=== PATIENT | male | born 1965 | race African-American/Black ===

== ENCOUNTER 2017-07-22 00:26 | Inpatient (IN) | payer MEDICAID ==
[2017-07-22] VITALS (46 sets, daily range): BP systolic 109–229; BP diastolic 69–157
[~2017-07-22] VITALS: Ht 177.8 cm; Wt 77.1 kg
[~2017-07-22 00:26] MED LIST: hctz; metformin
[2017-07-22] MEDS ORDERED: Labetalol 5mg/ml 20ml vial IV ONE (01:00)
[2017-07-22] MEDS ORDERED: LORazepam Inj 2mg/ml 1ml IV ONE (01:15)
[2017-07-22 01:23] LABS: ANION GAP 13 mmol/L (5-15); BLOOD UREA NITROGEN 8 mg/dL (7-18); CALCIUM 8.1 MG/DL (8.5-10.1); CARBON DIOXIDE 24 MMOL/L (21-32); CHLORIDE 98 MMOL/L (98-107); CREATININE 1.9 MG/DL (0.55-1.30); POTASSIUM 3.2 MMOL/L (3.5-5.1); SODIUM 135 MMOL/L (136-145)
[2017-07-22 01:38] LABS: ALANINE AMINOTRANSFERASE 66 U/L (12-78); ALBUMIN/GLOBULIN RATIO 0.6 (1.0-2.7); ALKALINE PHOSPHATASE 90 U/L (46-116); ASPARTATE AMINO TRANSFERASE 67 U/L (15-37); BILIRUBIN,TOTAL 0.7 MG/DL (0.2-1.0); CKMB 3.2 NG/ML (0.0-3.6); CREATINE KINASE 368 U/L (26-308)
--- NOTE | 2017-07-22 02:11 | Diagnostic Imaging Report ---
EXAM: CT Head Without Intravenous Contrast CLINICAL HISTORY: AMS TECHNIQUE: Axial computed tomography images of the head/brain without intravenous contrast. CTDI is 51 mGy and DLP is 258 mGy-cm. One or more of the following dose reduction techniques were used: automated exposure control, adjustment of the mA and/or kV according to patient size, use of iterative reconstruction technique. COMPARISON: No relevant prior studies available. FINDINGS: Brain: Chronic right MCA territorial infarctions. Ventricles: No acute or suspicious findings. No ventriculomegaly. Bones/joints: No acute or suspicious findings. No acute fracture. Soft tissues: No acute or suspicious findings. Sinuses: Unremarkable as visualized. No acute sinusitis. Mastoid air cells: Unremarkable as visualized. No mastoid effusion. IMPRESSION: No acute findings.
--- NOTE | 2017-07-22 02:12 | Diagnostic Imaging Report ---
EXAM: XR Chest, 1 View CLINICAL HISTORY: CP TECHNIQUE: Frontal view of the chest. COMPARISON: No relevant prior studies available. FINDINGS: Lungs: No acute or suspicious findings. No consolidation. Pleural space: No acute or suspicious findings. No pneumothorax. Heart: No acute or suspicious findings. Mild cardiomegaly. Mediastinum: No acute or suspicious findings. Bones/joints: No acute or suspicious findings. IMPRESSION: No acute process
[2017-07-22 02:14] LABS: HEMOGLOBIN 16.5 G/DL (14.2-18.0); MEAN CORPUSCULAR VOLUME 87 FL (80-99); RED BLOOD COUNT 5.49 M/UL (4.70-6.10); WHITE BLOOD COUNT 9.1 K/UL (4.8-10.8)
[2017-07-22 02:19] LABS: PLATELET COUNT 20 K/UL (150-450)
[2017-07-22] MEDS ORDERED: levETIRAcetam 500mg/NS100ml 100 ML IVPB ONE (02:30)
[2017-07-22] MEDS ORDERED: Nitroglycerin 2% oint pkt TOPIC ONE (02:30)
[2017-07-22] MEDS ORDERED: niCARdipine HCl 200 ML IV ONE (03:30)
--- NOTE | 2017-07-22 05:53 | Emergency Room Report ---
History of Present Illness General Chief Complaint: Hypertension Source: Patient, EMS Present Illness HPI Patient present with complaints of high blood pressure He reports that when he has high blood pressure he knows Because he feels lightheaded Patient upon arrival has some abnormal behavior sluggish speech Patient also while being transferred to the [facility] had an episode of shaking and tremors However was maintaining eye contact There is no other family member to provide further history Patient reports history of high blood pressure And reports being on amlodipine And hydrochlorothiazide However difficult to obtain full history otherwise Cannot provide history of chest pain Patient has been noncompliant with medications for the past 7 days History of present illness however does stay Limited as the patient himself has difficulty providing full history and there is no other contacted this time Allergies: Coded Allergies: LITHIUM (Verified Allergy, Unknown, 07/23/13) Patient History Limited by: medical condition Past Medical History: see triage record Pertinent Family History: none Reviewed Nursing Documentation: PMH: Agreed; PSxH: Agreed Nursing Documentation-PMH Hx Cardiac Problems: Yes Hx Hypertension: Yes Hx Diabetes: Yes Hx Cancer: No Hx Gastrointestinal Problems: No Hx Neurological Problems: No Review of Systems All Other Systems: limited - Other than the ones mentioned in the history of present illness all others are reviewed however they do stay limited due to the patient's mental status Physical Exam Vital Signs Date Time Temp Pulse Resp B/P (MAP) Pulse Ox O2 Delivery O2 Flow Rate FiO2 07/22/17 00:33 98.6 140 18 252/102 98 Room Air 98.6 07/22/17 01:11 98 07/22/17 02:30 3.0 Sp02 EP Interpretation: reviewed, normal General Appearance: mild distress Head: normocephalic, atraumatic Eyes: bilateral eye PERRL, bilateral eye EOMI ENT: normal pharynx Neck: full range of motion, supple Respiratory: lungs clear, normal breath sounds Cardiovascular #1: no gallop, no JVD, tachycardia Gastrointestinal: non tender, soft Musculoskeletal: other - Patient is able to move all extremities however intermittently, has shaking episodes and tremors, at times appears somewhat confused and then becomes more coherent Neurologic: responsive - Patient presented awake, he had difficulty providing full history appeared confused, had episode of some tremulousness, however maintaining appropriate eye contact and appeared awake Skin: normal color, no rash Lymphatic: no adenopathy Procedures Critical Care Time Critical Care Time 70 minutes for multiple re-evaluations continued care in the emergency room hypotensive findings concerning for end organ injury and possible intracranial hemorrhage Medical Decision Making Diagnostic Impression: Primary Impression: Hypertensive urgency, malignant Additional Impression: CHF (congestive heart failure) ER Course Patient presents and extremity concerning fashion Patient has abnormal findings at times appears tremulous questionable seizure activity Patient's ABG shows retaining of CO2 with a low pH Also concerns of CHF Placed on BiPAP Patient has repeat ABG also done At this time continues on antihypertensive drip CT shows previous right-sided large CVA And at this time admitted for further inpatient care Labs Test 07/22/17 00:58 07/22/17 01:53 07/22/17 02:20 07/22/17 02:42 Prothrombin Time 10.9 SEC (9.30-11.50) Prothromb Time International Ratio 1.0 (0.9-1.1) Activated Partial Thromboplast Time 28 SEC (23-33) Sodium Level 135 MMOL/L (136-145) Potassium Level 3.2 MMOL/L (3.5-5.1) Chloride Level 98 MMOL/L (98-107) Carbon Dioxide Level 24 MMOL/L (21-32) Anion Gap 13 mmol/L (5-15) Blood Urea Nitrogen 8 mg/dL (7-18) Creatinine 1.9 MG/DL (0.55-1.30) Estimat Glomerular Filtration Rate 45.6 mL/min (>60) Glucose Level 377 MG/DL (74-106) Calcium Level 8.1 MG/DL (8.5-10.1) Total Bilirubin 0.7 MG/DL (0.2-1.0) Aspartate Amino Transf (AST/SGOT) 67 U/L (15-37) Alanine Aminotransferase (ALT/SGPT) 66 U/L (12-78) Alkaline Phosphatase 90 U/L (46-116) Total Creatine Kinase 368 U/L (26-308) Creatine Kinase MB 3.2 NG/ML (0.0-3.6) Creatine Kinase MB Relative Index 0.8 Troponin I 0.047 ng/mL (0.000-0.056) Pro-B-Type Natriuretic Peptide 6126 pg/mL (0-125) Total Protein 8.3 G/DL (6.4-8.2) Albumin 3.0 G/DL (3.4-5.0) Globulin 5.3 g/dL Albumin/Globulin Ratio 0.6 (1.0-2.7) Urine Opiates Screen Negative (NEGATIVE) Urine Barbiturates Screen Negative (NEGATIVE) Phencyclidine (PCP) Screen Negative (NEGATIVE) Urine Amphetamines Screen Negative (NEGATIVE) Urine Benzodiazepines Screen Negative (NEGATIVE) Urine Cocaine Screen Negative (NEGATIVE) Urine Marijuana (THC) Screen Negative (NEGATIVE) White Blood Count 9.1 K/UL (4.8-10.8) Red Blood Count 5.49 M/UL (4.70-6.10) Hemoglobin 16.5 G/DL (14.2-18.0) Hematocrit 48.0 % (42.0-52.0) Mean Corpuscular Volume 87 FL (80-99) Mean Corpuscular Hemoglobin 30.0 PG (27.0-31.0) Mean Corpuscular Hemoglobin Concent 34.3 G/DL (32.0-36.0) Red Cell Distribution Width 12.0 % (11.6-14.8) Platelet Count 20 K/UL (150-450) Mean Platelet Volume 12.4 FL (6.5-10.1) Neutrophils (%) (Auto) % (45.0-75.0) Lymphocytes (%) (Auto) % (20.0-45.0) Monocytes (%) (Auto) % (1.0-10.0) Eosinophils (%) (Auto) % (0.0-3.0) Basophils (%) (Auto) % (0.0-2.0) Differential Total Cells Counted 100 Neutrophils % (Manual) 92 % (45-75) Lymphocytes % (Manual) 4 % (20-45) Monocytes % (Manual) 2 % (1-10) Eosinophils % (Manual) 0 % (0-3) Basophils % (Manual) 2 % (0-2) Band Neutrophils 0 % (0-8) Platelet Estimate Adequate Platelet Morphology Normal Clumped Platelets 1+ HIV (1&2) Antibody Rapid Negative (NEGATIVE) Arterial Blood pH 7.290 (7.350-7.450) Arterial Blood Partial Pressure CO2 52.8 mmHg (35.0-45.0) Arterial Blood Partial Pressure O2 76.5 mmHg (75.0-100.0) Arterial Blood HCO3 25.2 mmol/L (22.0-26.0) Arterial Blood Oxygen Saturation 93.1 % (92.0-98.0) Arterial Blood Base Excess -2.1 Brandyn Test Positive Lactic Acid Level 3.00 mmol/L (0.4-2.0) Test 07/22/17 04:51 Arterial Blood pH 7.420 (7.350-7.450) Arterial Blood Partial Pressure CO2 40.4 mmHg (35.0-45.0) Arterial Blood Partial Pressure O2 119.2 mmHg (75.0-100.0) Arterial Blood HCO3 25.6 mmol/L (22.0-26.0) Arterial Blood Oxygen Saturation 98.2 % (92.0-98.0) Arterial Blood Base Excess 1.1 Brandyn Test Positive EKG Diagnostic Results Rate: tachycardiac Rhythm: other - Nonspecific ST/T-wave changes ST Segments: other Rhythm Strip Diag. Results EP Interpretation: yes Rate: 110 Rhythm: no PVC's, no ectopy, other - Sinus tach Chest X-Ray Diagnostic Results Chest X-Ray Diagnostic Results : Chest X-Ray Ordered: Yes Indication: Chest Pain EP Interpretation: Yes Interpretation: no consolidation, no effusion, no pneumothorax, other - Cardiomegaly Impression: No acute disease CT/MRI/US Diagnostic Results CT/MRI/US Diagnostic Results : Impression CT headFINDINGS: Brain:Chronic right MCAterritorial infarctions. Ventricles:No acute or suspicious findings. No ventriculomegaly. Bones/joints:No acute or suspicious findings. No acute fracture. Soft tissues:No acute or suspicious findings. Sinuses:Unremarkable as visualized. No acute sinusitis. Mastoid air cells:Unremarkable as visualized. No mastoid effusion. Last Vital Signs Date Time Temp Pulse Resp B/P (MAP) Pulse Ox O2 Delivery O2 Flow Rate FiO2 07/22/17 05:25 103 19 156/100 100 Bi-pap 07/22/17 05:18 30 07/22/17 02:30 3.0 07/22/17 02:00 98.6 98.6 Status: improved Disposition: ADMITTED INPATIENT Condition: Critical Referrals: [facility]OUNT[facility],REFERRING (PCP) Melida Rodríguez DO Jul 22, 2017 05:53
[2017-07-22] MEDS ORDERED: Enoxaparin 40mg Inj SUBQ SCH (09:00)
--- NOTE | 2017-07-22 09:30 | Critical Care Progress Note ---
Assessment/Plan Assessment/Plan Hypertensive urgency, malignant CHF (congestive heart failure) Hypercapnia Acute respiratory failure right-sided large CVA Renal failure protein calorie malnutrition PLAN BIPAP as needed ABG follow up antihypertensives monitor for aspiration Critical Care - Subjective Interval Events: asked to assist with ICU/pulm care on BIPAP ROS Limited/Unobtainable: Yes Condition: critical EKG Rhythm: Sinus Tachycardia I&O: Intake and Output 07/21/17 07/22/17 19:00 07:00 Intake Total 0.3 ml Balance 0.3 ml Intake IV Total 0.3 ml # Voids 1 Critical Care - Objective Last 24 Hour Vital Signs Date Time Temp Pulse Resp B/P (MAP) Pulse Ox O2 Delivery O2 Flow Rate FiO2 07/22/17 08:30 117 19 150/99 100 Bi-pap 30 07/22/17 08:00 117 19 150/99 100 Bi-pap 30 07/22/17 07:52 30 07/22/17 07:51 Bi-pap 30 07/22/17 07:29 112 25 100 Facial 30 07/22/17 06:45 114 21 152/98 100 Bi-pap 07/22/17 06:30 117 21 162/103 100 Bi-pap 07/22/17 06:15 107 19 185/128 100 07/22/17 05:50 107 15 146/96 100 Bi-pap 3.0 30 07/22/17 05:25 103 19 156/100 100 Bi-pap 07/22/17 05:18 100 23 100 Facial 30 07/22/17 05:00 98 18 172/122 100 Bi-pap 07/22/17 05:00 98 18 172/122 100 Bi-pap 07/22/17 04:45 97 18 169/120 100 Bi-pap 07/22/17 04:26 100 25 157/108 100 Bi-pap 07/22/17 04:08 186/128 07/22/17 03:03 103 23 100 Facial 35 07/22/17 03:00 110 22 198/137 100 Bi-pap 07/22/17 02:59 100 23 Bi-pap 35 07/22/17 02:57 216/157 07/22/17 02:30 106 23 216/157 100 Nasal Cannula 3.0 07/22/17 02:00 98.6 107 22 209/140 99 Room Air 98 98.6 07/22/17 01:11 98.6 125 24 229/144 98 Room Air 98.6 07/22/17 01:11 125 24 Room Air 98 07/22/17 01:07 125 229/144 07/22/17 00:33 98.6 140 18 252/102 98 Room Air 98.6 Labs: Laboratory Tests Test 07/22/17 00:58 07/22/17 01:53 07/22/17 02:20 07/22/17 02:42 Prothrombin Time 10.9 SEC (9.30-11.50) Prothromb Time International Ratio 1.0 (0.9-1.1) Activated Partial Thromboplast Time 28 SEC (23-33) Sodium Level 135 MMOL/L (136-145) L Potassium Level 3.2 MMOL/L (3.5-5.1) L Chloride Level 98 MMOL/L (98-107) Carbon Dioxide Level 24 MMOL/L (21-32) Anion Gap 13 mmol/L (5-15) Blood Urea Nitrogen 8 mg/dL (7-18) Creatinine 1.9 MG/DL (0.55-1.30) H Estimat Glomerular Filtration Rate 45.6 mL/min (>60) Glucose Level 377 MG/DL (74-106) H Calcium Level 8.1 MG/DL (8.5-10.1) L Total Bilirubin 0.7 MG/DL (0.2-1.0) Aspartate Amino Transf (AST/SGOT) 67 U/L (15-37) H Alanine Aminotransferase (ALT/SGPT) 66 U/L (12-78) Alkaline Phosphatase 90 U/L (46-116) Total Creatine Kinase 368 U/L (26-308) H Creatine Kinase MB 3.2 NG/ML (0.0-3.6) Creatine Kinase MB Relative Index 0.8 Troponin I 0.047 ng/mL (0.000-0.056) Pro-B-Type Natriuretic Peptide 6126 pg/mL (0-125) H Total Protein 8.3 G/DL (6.4-8.2) H Albumin 3.0 G/DL (3.4-5.0) L Globulin 5.3 g/dL Albumin/Globulin Ratio 0.6 (1.0-2.7) L Urine Opiates Screen Negative (NEGATIVE) Urine Barbiturates Screen Negative (NEGATIVE) Phencyclidine (PCP) Screen Negative (NEGATIVE) Urine Amphetamines Screen Negative (NEGATIVE) Urine Benzodiazepines Screen Negative (NEGATIVE) Urine Cocaine Screen Negative (NEGATIVE) Urine Marijuana (THC) Screen Negative (NEGATIVE) White Blood Count 9.1 K/UL (4.8-10.8) Red Blood Count 5.49 M/UL (4.70-6.10) Hemoglobin 16.5 G/DL (14.2-18.0) Hematocrit 48.0 % (42.0-52.0) Mean Corpuscular Volume 87 FL (80-99) Mean Corpuscular Hemoglobin 30.0 PG (27.0-31.0) Mean Corpuscular Hemoglobin Concent 34.3 G/DL (32.0-36.0) Red Cell Distribution Width 12.0 % (11.6-14.8) Platelet Count 20 K/UL (150-450) L Mean Platelet Volume 12.4 FL (6.5-10.1) H Neutrophils (%) (Auto) % (45.0-75.0) Lymphocytes (%) (Auto) % (20.0-45.0) Monocytes (%) (Auto) % (1.0-10.0) Eosinophils (%) (Auto) % (0.0-3.0) Basophils (%) (Auto) % (0.0-2.0) Differential Total Cells Counted 100 Neutrophils % (Manual) 92 % (45-75) H Lymphocytes % (Manual) 4 % (20-45) L Monocytes % (Manual) 2 % (1-10) Eosinophils % (Manual) 0 % (0-3) Basophils % (Manual) 2 % (0-2) Band Neutrophils 0 % (0-8) Platelet Estimate Adequate Platelet Morphology Normal Clumped Platelets 1+ HIV (1&2) Antibody Rapid Negative (NEGATIVE) Arterial Blood pH 7.290 (7.350-7.450) Arterial Blood Partial Pressure CO2 52.8 mmHg (35.0-45.0) H Arterial Blood Partial Pressure O2 76.5 mmHg (75.0-100.0) Arterial Blood HCO3 25.2 mmol/L (22.0-26.0) Arterial Blood Oxygen Saturation 93.1 % (92.0-98.0) Arterial Blood Base Excess -2.1 Brandyn Test Positive Lactic Acid Level 3.00 mmol/L (0.4-2.0) H Test 07/22/17 04:51 07/22/17 06:25 07/22/17 09:00 Arterial Blood pH 7.420 (7.350-7.450) Arterial Blood Partial Pressure CO2 40.4 mmHg (35.0-45.0) Arterial Blood Partial Pressure O2 119.2 mmHg (75.0-100.0) H Arterial Blood HCO3 25.6 mmol/L (22.0-26.0) Arterial Blood Oxygen Saturation 98.2 % (92.0-98.0) H Arterial Blood Base Excess 1.1 Brandyn Test Positive Lactic Acid Level 1.50 mmol/L (0.66-2.22) White Blood Count Pending Red Blood Count Pending Hemoglobin Pending Hematocrit Pending Mean Corpuscular Volume Pending Mean Corpuscular Hemoglobin Pending Mean Corpuscular Hemoglobin Concent Pending Red Cell Distribution Width Pending Platelet Count Pending Mean Platelet Volume Pending Neutrophils (%) (Auto) Pending Lymphocytes (%) (Auto) Pending Monocytes (%) (Auto) Pending Eosinophils (%) (Auto) Pending Basophils (%) (Auto) Pending Lactate Dehydrogenase Pending Troponin I Pending Objective: WDWN reduced LOC reduced breath sounds bilaterally with some rhonchi S1S2RR tachy without MRG NABS nontender no HSM no CC edema Accucheck: 308 Abdoulaye Tijerina MD Jul 22, 2017 09:30
[2017-07-22] MEDS: Docusate 100mg cap ORAL SCH ×2 (10:06→21:21)
[2017-07-22] MEDS: niCARdipine HCl 200 ML IV SCH ×2 (10:07→14:40)
--- NOTE | 2017-07-22 10:15 | History and Physical Report ---
DATE OF ADMISSION: 07/22/2017 REASON FOR ADMISSION: 1. Hypertensive urgency. 2. Shortness of breath. HISTORY OF PRESENT ILLNESS: The patient is a 52-year-old gentleman who presented to the emergency room for further evaluation and care of slight feeling lightheaded and blood pressure extremely elevated systolic in the 240s. The patient was feeling ill with some slightly shaking tremors. ER physician said CT of the head was negative. The patient was being admitted to the ICU for hypertensive urgency. At home, the patient had noted he was taking amlodipine and hydrochlorothiazide for blood pressure. His creatinine is 1.9. Denies any current chest pain. He did receive Lasix in the emergency room to assist with his breathing and placed on noninvasive positive pressure ventilation. ALLERGIES: [place]. PAST MEDICAL HISTORY: 1. Hypertension. 2. Diabetes mellitus. FAMILY HISTORY: Positive for hypertension and diabetes. PAST SURGICAL HISTORY: Noncontributory. REVIEW OF SYSTEMS: Cannot obtain as the patient is resting comfortably. LABORATORY DATA: Laboratories dated 07/22/2017, sodium 135, potassium 3.2, creatinine 1.9, bicarb 24, lactic acid 1.5, calcium 8.1. AST and ALT 67 and 66 respectively. CPK at 368. BNP of 6126. Albumin 3.0. White cell count 9.1, hemoglobin 16.5, and platelet count of 20. PHYSICAL EXAMINATION: VITAL SIGNS: Blood pressure 185/128, pulse 107, respiratory rate 19, 100% oxygen saturation on BiPAP. GENERAL: The patient somnolent, but arousable, in no acute distress. HEENT: Extraocular muscles intact. NECK: No lymphadenopathy noted. CARDIOVASCULAR: S1 and S2. No rubs or gallops. PULMONARY: Mild upper airway rhonchi with basilar rales. ABDOMEN: Nondistended and nontender. EXTREMITIES: No edema. ASSESSMENT AND PLAN: 1. Hypertensive urgency. At this time, patient will be placed on a Cardene drip to reduce overall systolic blood pressure approximately 25% over the next 24 hours. We will maintain systolic blood pressure in a Cardene drip within systolic range of 160 to 170. 2. Thrombocytopenia. Platelet count of 20. We will recheck platelet count and consult Hematology/Oncology. At this time, no signs of TTP. We will check a LDH level. 3. Diabetes mellitus. For the time being, the patient will be placed on insulin sliding scale and Accu-Cheks. 4. Deep venous thrombosis prophylaxis with Lovenox 40 milligrams subcutaneous. 5. Acute kidney injury. Creatinine 1.9, secondary to hypertensive urgency, at this time conservative management. Renal ultrasound to rule out possibility of any obstruction. Avoid any nephrotoxins. 6. Pulmonary edema, shortness of breath secondary to hypertensive urgency. The patient is on BiPAP. We will consult Dr. Tijerina, Pulmonary Care for further evaluation and management. Lyndon Shaw MD DR: RUSSELL JOB#: [id number] CC:
[2017-07-22] MEDS: NovoLOG Insulin Flexpen SUBQ SCH ×3 (11:57→21:22)
[2017-07-22] MEDS ORDERED: METFORMIN HCL500 M4 ORAL (12:30)
[2017-07-22 12:32] LABS: HEMATOCRIT 50.4 % (42.0-52.0); HEMOGLOBIN 16.7 G/DL (14.2-18.0); MEAN CORPUSCULAR VOLUME 87 FL (80-99); RED BLOOD COUNT 5.76 M/UL (4.70-6.10)
[2017-07-22 12:34] LABS: PLATELET COUNT 9 K/UL (150-450)
--- NOTE | 2017-07-22 14:05 | Cardiac Electrophysiology PN ---
Subjective Subjective [id number] Objective Last 24 Hour Vital Signs Date Time Temp Pulse Resp B/P (MAP) Pulse Ox O2 Delivery O2 Flow Rate FiO2 07/22/17 13:30 116 16 141/88 97 Nasal Cannula 2.0 07/22/17 13:00 110 22 147/82 97 Nasal Cannula 2.0 07/22/17 12:30 116 19 151/102 99 Nasal Cannula 2.0 07/22/17 12:00 97.8 115 24 165/101 98 Nasal Cannula 2.0 97.8 07/22/17 12:00 115 07/22/17 12:00 120 07/22/17 11:30 119 23 169/91 99 Nasal Cannula 2.0 07/22/17 11:00 122 23 173/107 100 Nasal Cannula 2.0 07/22/17 10:30 115 22 178/113 100 Nasal Cannula 2.0 07/22/17 10:15 110 23 166/103 100 Nasal Cannula 2.0 07/22/17 10:07 178/106 07/22/17 10:00 113 22 178/106 100 Nasal Cannula 2.0 07/22/17 09:45 118 22 170/104 98 Nasal Cannula 2.0 07/22/17 09:30 112 21 170/104 99 Nasal Cannula 2.0 07/22/17 09:15 123 20 168/105 100 Nasal Cannula 2.0 07/22/17 09:00 114 19 155/100 100 Nasal Cannula 2.0 07/22/17 08:45 98.4 117 20 150/101 100 Nasal Cannula 2.0 98.4 07/22/17 08:30 117 19 150/99 100 Bi-pap 30 07/22/17 08:00 117 19 150/99 100 Bi-pap 30 07/22/17 07:52 30 07/22/17 07:51 Bi-pap 30 07/22/17 07:29 112 25 100 Facial 30 07/22/17 06:45 114 21 152/98 100 Bi-pap 07/22/17 06:30 117 21 162/103 100 Bi-pap 07/22/17 06:15 107 19 185/128 100 07/22/17 05:50 107 15 146/96 100 Bi-pap 3.0 30 07/22/17 05:25 103 19 156/100 100 Bi-pap 07/22/17 05:18 100 23 100 Facial 30 07/22/17 05:00 98 18 172/122 100 Bi-pap 07/22/17 05:00 98 18 172/122 100 Bi-pap 07/22/17 04:45 97 18 169/120 100 Bi-pap 07/22/17 04:26 100 25 157/108 100 Bi-pap 07/22/17 04:08 186/128 07/22/17 03:03 103 23 100 Facial 35 07/22/17 03:00 110 22 198/137 100 Bi-pap 07/22/17 02:59 100 23 Bi-pap 35 07/22/17 02:57 216/157 07/22/17 02:30 106 23 216/157 100 Nasal Cannula 3.0 07/22/17 02:00 98.6 107 22 209/140 99 Room Air 98 98.6 07/22/17 01:11 98.6 125 24 229/144 98 Room Air 98.6 07/22/17 01:11 125 24 Room Air 98 07/22/17 01:07 125 229/144 07/22/17 00:33 98.6 140 18 252/102 98 Room Air 98.6 Intake and Output 07/21/17 07/22/17 19:00 07:00 Intake Total 0.3 ml Balance 0.3 ml Intake IV Total 0.3 ml # Voids 1 Laboratory Tests Test 07/22/17 00:58 07/22/17 01:53 07/22/17 02:20 07/22/17 02:42 Prothrombin Time 10.9 SEC (9.30-11.50) Prothromb Time International Ratio 1.0 (0.9-1.1) Activated Partial Thromboplast Time 28 SEC (23-33) Sodium Level 135 MMOL/L (136-145) L Potassium Level 3.2 MMOL/L (3.5-5.1) L Chloride Level 98 MMOL/L (98-107) Carbon Dioxide Level 24 MMOL/L (21-32) Anion Gap 13 mmol/L (5-15) Blood Urea Nitrogen 8 mg/dL (7-18) Creatinine 1.9 MG/DL (0.55-1.30) H Estimat Glomerular Filtration Rate 45.6 mL/min (>60) Glucose Level 377 MG/DL (74-106) H Calcium Level 8.1 MG/DL (8.5-10.1) L Total Bilirubin 0.7 MG/DL (0.2-1.0) Aspartate Amino Transf (AST/SGOT) 67 U/L (15-37) H Alanine Aminotransferase (ALT/SGPT) 66 U/L (12-78) Alkaline Phosphatase 90 U/L (46-116) Total Creatine Kinase 368 U/L (26-308) H Creatine Kinase MB 3.2 NG/ML (0.0-3.6) Creatine Kinase MB Relative Index 0.8 Troponin I 0.047 ng/mL (0.000-0.056) Pro-B-Type Natriuretic Peptide 6126 pg/mL (0-125) H Total Protein 8.3 G/DL (6.4-8.2) H Albumin 3.0 G/DL (3.4-5.0) L Globulin 5.3 g/dL Albumin/Globulin Ratio 0.6 (1.0-2.7) L Urine Opiates Screen Negative (NEGATIVE) Urine Barbiturates Screen Negative (NEGATIVE) Phencyclidine (PCP) Screen Negative (NEGATIVE) Urine Amphetamines Screen Negative (NEGATIVE) Urine Benzodiazepines Screen Negative (NEGATIVE) Urine Cocaine Screen Negative (NEGATIVE) Urine Marijuana (THC) Screen Negative (NEGATIVE) White Blood Count 9.1 K/UL (4.8-10.8) Red Blood Count 5.49 M/UL (4.70-6.10) Hemoglobin 16.5 G/DL (14.2-18.0) Hematocrit 48.0 % (42.0-52.0) Mean Corpuscular Volume 87 FL (80-99) Mean Corpuscular Hemoglobin 30.0 PG (27.0-31.0) Mean Corpuscular Hemoglobin Concent 34.3 G/DL (32.0-36.0) Red Cell Distribution Width 12.0 % (11.6-14.8) Platelet Count 20 K/UL (150-450) L Mean Platelet Volume 12.4 FL (6.5-10.1) H Neutrophils (%) (Auto) % (45.0-75.0) Lymphocytes (%) (Auto) % (20.0-45.0) Monocytes (%) (Auto) % (1.0-10.0) Eosinophils (%) (Auto) % (0.0-3.0) Basophils (%) (Auto) % (0.0-2.0) Differential Total Cells Counted 100 Neutrophils % (Manual) 92 % (45-75) H Lymphocytes % (Manual) 4 % (20-45) L Monocytes % (Manual) 2 % (1-10) Eosinophils % (Manual) 0 % (0-3) Basophils % (Manual) 2 % (0-2) Band Neutrophils 0 % (0-8) Platelet Estimate Adequate Platelet Morphology Normal Clumped Platelets 1+ HIV (1&2) Antibody Rapid Negative (NEGATIVE) Arterial Blood pH 7.290 (7.350-7.450) Arterial Blood Partial Pressure CO2 52.8 mmHg (35.0-45.0) H Arterial Blood Partial Pressure O2 76.5 mmHg (75.0-100.0) Arterial Blood HCO3 25.2 mmol/L (22.0-26.0) Arterial Blood Oxygen Saturation 93.1 % (92.0-98.0) Arterial Blood Base Excess -2.1 Brandyn Test Positive Lactic Acid Level 3.00 mmol/L (0.4-2.0) H Test 07/22/17 04:51 07/22/17 06:25 07/22/17 09:00 07/22/17 10:10 Arterial Blood pH 7.420 (7.350-7.450) Arterial Blood Partial Pressure CO2 40.4 mmHg (35.0-45.0) Arterial Blood Partial Pressure O2 119.2 mmHg (75.0-100.0) H Arterial Blood HCO3 25.6 mmol/L (22.0-26.0) Arterial Blood Oxygen Saturation 98.2 % (92.0-98.0) H Arterial Blood Base Excess 1.1 Brandyn Test Positive Lactic Acid Level 1.50 mmol/L (0.66-2.22) Haptoglobin Pending Lactate Dehydrogenase 260 U/L (81-234) H Troponin I 0.101 ng/mL (0.000-0.056) White Blood Count 10.0 K/UL (4.8-10.8) Red Blood Count 5.76 M/UL (4.70-6.10) Hemoglobin 16.7 G/DL (14.2-18.0) Hematocrit 50.4 % (42.0-52.0) Mean Corpuscular Volume 87 FL (80-99) Mean Corpuscular Hemoglobin 29.0 PG (27.0-31.0) Mean Corpuscular Hemoglobin Concent 33.2 G/DL (32.0-36.0) Red Cell Distribution Width 12.0 % (11.6-14.8) Platelet Count 9 K/UL (150-450) #*L Mean Platelet Volume Pending Neutrophils (%) (Auto) % (45.0-75.0) Lymphocytes (%) (Auto) % (20.0-45.0) Monocytes (%) (Auto) % (1.0-10.0) Eosinophils (%) (Auto) % (0.0-3.0) Basophils (%) (Auto) % (0.0-2.0) Neutrophils % (Manual) Pending Lymphocytes % (Manual) Pending Platelet Estimate Pending Platelet Morphology Pending Fibrinogen Pending Shreyas Palacio MD Jul 22, 2017 14:05
[2017-07-22] MEDS ORDERED: cloNIDine 0.2mg Tab ORAL PRN ×2 (14:15→14:30)
[2017-07-22 16:49] LABS: BILIRUBIN, URINE NEGATIVE (NEGATIVE); COLOR,URINE AMBER; GLUCOSE, URINE (UA) 4+ (NEGATIVE); KETONES,URINE NEGATIVE (NEGATIVE); LEUKOCYTE ESTERASE ,URINE 1+ (NEGATIVE); NITRITE,URINE NEGATIVE (NEGATIVE); PH,URINE 6 (4.5-8.0); PROTEIN,URINE 4+ (NEGATIVE); UROBILINOGEN,URINE NORMAL MG/DL (0.0-1.0)
[2017-07-22 16:58] LABS: APPEARANCE,URINE SLIGHTLY CLOUDY
--- NOTE | 2017-07-22 20:30 | Consultation ---
DATE OF CONSULTATION: 07/22/2017 CARDIOLOGY CONSULTATION CONSULTING PHYSICIAN: Shreyas Palacio M.D. REFERRING PHYSICIAN: Michael Langston M.D. REASON FOR CONSULTATION: Management of hypertension. HISTORY OF PRESENT ILLNESS: The patient is a 52-year-old gentleman with history of hypertension, who presented to the emergency room feeling lightheaded and blood pressure being in the 240s. The patient was also having tremors. CT of the head in the emergency room was negative. The patient was admitted to intensive care unit and was started on nicardipine drip. The patient apparently at home was on amlodipine and hydrochlorothiazide, however, he was not taking for a week. The patient was admitted to intensive care unit. At the time of my evaluation, the patient denies any chest pain, palpitation, or shortness of breath. REVIEW OF SYSTEMS: Negative other than what was mentioned in history of present illness. PAST MEDICAL HISTORY: 1. Hypertension. 2. Diabetes. FAMILY HISTORY: Noncontributory. SOCIAL HISTORY: He lives at home. Does not smoke or drink alcohol. PHYSICAL EXAMINATION: VITAL SIGNS: Blood pressure is 141/88, pulse 116, respirations 16, and he is afebrile. HEAD AND NECK: Shows no JVD. LUNGS: Clear. CARDIOVASCULAR: Shows regular S1 and S2 with no gallop or murmur. ABDOMEN: Soft. EXTREMITIES: No pitting edema. DIAGNOSTIC DATA: His EKG shows sinus tachycardia of 124, right superior axis. LABORATORY DATA: White count of 10, hemoglobin of 16, hematocrit of 50, and platelet count was only 9,000. His troponin was negative at 0.10. Sodium 135, potassium 3.2, BUN of and 1.9, and glucose of 377. CK 368. BNP 6126. ASSESSMENT AND PLAN: 1. Accelerated hypertension. Since he is tachycardic, add metoprolol 100 mg b.i.d. to his medical regimen and try to taper off his nicardipine. Add p.r.n. clonidine to his medical regimen. 2. Elevated BNP. We will get an echocardiogram for ejection fraction and wall motion abnormality. Add Lasix to his regimen also. 3. Renal failure. Creatinine of 1.9. 4. Uncontrolled diabetes with glucose of 377. His urine toxicology screen is negative. 5. Severe thrombocytopenia with platelet count of only 9,000. Etiology is not clear at this time. Further evaluation by Hematology. Thank you very much for allowing me to participate in the care of this patient. Please do not hesitate to contact me for any questions regarding my evaluation. Shreyas Palacio M.D. DR: Prachi JOB#: [id number] CC:
[2017-07-22] MEDS ORDERED: methylPREDNISolone Sod Succ 1,000 MG in NS 275 ML IVPB SCH (22:30)
[2017-07-23] VITALS (17 sets, daily range): BP systolic 145–174; BP diastolic 82–105
--- NOTE | 2017-07-23 01:15 | Consultation ---
DATE OF CONSULTATION: 07/22/2017 "NOTE: POOR AUDIO QUALITY" HEMATOLOGY/ONCOLOGY CONSULTATION CONSULTING PHYSICIAN: Colby Flores M.D. REFERRING PHYSICIAN: Michael Langston M.D. IDENTIFYING DATA: Dear Dr. Langston and Dr. Lyndon Shaw, The patient is a pleasant 52-year-old male with past medical history significant for hypertension, diabetes mellitus, who at this time presented to the ER for further care. He was slightly lightheaded. Elevated blood pressure was noted. Admitted for hypertensive urgency. Cardiology service consulted and noted to have a platelet count of 20,000, decreased to 9000. Hematology Service consulted for further evaluation and treatment. PAST MEDICAL HISTORY: Hypertension and diabetes. PAST SURGICAL HISTORY: Noncontributory. REVIEW OF SYSTEMS: Difficult to obtain.CONSTITUTIONAL: No fevers, chills, or night sweats. SKIN: No rashes, bumps, or itching. HEENT: No headache, hearing or vision changes. BREASTS: No lumps, pain, or discharge. PULMONARY: No cough, sputum, or shortness of breath. GASTROINTESTINAL: No nausea, vomiting, or diarrhea. GENITOURINARY: No dysuria, frequency, or urgency. MUSCULOSKELETAL: No joint swelling, muscle pain, or trauma. PHYSICAL EXAMINATION: VITAL SIGNS: Reviewed. GENERAL: No distress. PULMONARY: Decreased breath sounds. CARDIOVASCULAR: Regular rate. No S3 or S4. ABDOMEN: Soft, nontender, and nondistended. EXTREMITIES: No cyanosis or swelling reported. LABORATORY DATA: Platelet count of 9000. ASSESSMENT AND RECOMMENDATIONS: 1. Isolated thrombocytopenia, very short differential in this case, potentially secondary to either intramedullary process such as leukemia versus isolated immune thrombocytopenic purpura versus viral infection versus malignancy versus medications versus toxin exposure versus autoimmune and at this time may consider to obtain bone marrow biopsy on Monday. Hold off on steroids at this time. diagnosis, but may consider use of steroids as the patient has immune thrombocytopenic purpura. 2. Hypertensive urgency, being seen by Cardiology Service, is on clonidine and nicardipine. 3. Acute kidney injury. Creatinine 1.9. Rule out . LDH is normal. 4. Uncontrolled diabetes mellitus, blood sugar goal . 5. Continue to closely monitor. I appreciate consultation. Colby Flores M.D. DR: SALVADOR JOB#: [id number] CC:
[2017-07-23] MEDS: NovoLOG Insulin Flexpen SUBQ SCH (06:08)
[2017-07-23] MEDS: Docusate 100mg cap ORAL SCH (08:42)
[2017-07-23] MEDS ORDERED: LR 1000ml ONE (09:34)
--- NOTE | 2017-07-23 10:00 | General Progress Note ---
Assessment/Plan Status: unchanged Assessment/Plan 1. Isolated thrombocytopenia, very short differential in this case, potentially secondary to either intramedullary process such as leukemia versus isolated immune thrombocytopenic purpura versus viral infection versus malignancy versus medications versus toxin exposure versus autoimmune and at this time may consider to obtain bone marrow biopsy on Monday. --> He has extremely poor understanding of his disease status, wants to leave AMA, i have told him that is not a great idea, he needs to stay --> Have ordered hepatitis and hiv, ebv, parvo needs to be ordered as well, apparently he has already left the building --> started solumedrol x 3 days 1gm dosing to see if ITP should improve platelet counts in next 3-5 days --> NEEDS to have a bone marrow biopsy as early as monday --> generally avoid platelet transfusions unless he is actively bleeding --> review peripheral smear for schistocytes with pathologist to see if any schistocytes noted or large platelets --> no family history of low platelets but obtain a family history from family as patient has poor memory --> again do not recommend discharge at this time, he may have a malignancy versus ITP v other cause, do not recommend dc until he gets further workup 2. Hypertensive urgency --> seen by Cardiology Service, is on clonidine and nicardipine. 3. Acute kidney injury. Creatinine 1.9. LDH is normal. 4. Uncontrolled diabetes mellitus, blood sugar goal 80-120 5. Continue to closely monitor. Subjective Date patient seen: Jul 23, 2017 Gastrointestinal/Abdominal: Reports: vomiting Allergies: Coded Allergies: LITHIUM (Verified Allergy, Unknown, 07/23/13) All Systems: reviewed and negative except above Subjective Pt in ICU. Vomiting evet, given zofran. No signs of acute medical distress. wants to leave ama Objective Last 24 Hour Vital Signs Date Time Temp Pulse Resp B/P (MAP) Pulse Ox O2 Delivery O2 Flow Rate FiO2 07/23/17 09:00 97 21 154/104 98 Room Air 07/23/17 08:43 94 126/70 07/23/17 08:00 93 07/23/17 08:00 98.8 96 21 150/95 100 Room Air 98.8 07/23/17 07:00 89 22 145/82 97 Room Air 07/23/17 06:30 93 20 150/88 100 Room Air 07/23/17 06:15 174/137 6/10/18 06:00 85 20 165/82 100 Room Air 07/23/17 05:30 89 20 174/90 100 Room Air 07/23/17 05:00 91 20 160/99 100 Room Air 07/23/17 04:30 91 20 152/96 100 Room Air 07/23/17 04:00 98.2 91 20 151/91 100 Room Air 98.2 07/23/17 04:00 91 07/23/17 03:30 89 22 163/105 100 Room Air 07/23/17 03:00 92 20 156/88 99 Room Air 07/23/17 02:30 93 20 158/97 99 Room Air 07/23/17 02:00 89 20 156/84 99 Room Air 07/23/17 01:30 88 21 160/102 99 Room Air 07/23/17 01:00 89 21 160/100 99 Room Air 07/23/17 00:30 87 19 150/88 99 Room Air 07/23/17 00:00 89 07/23/17 00:00 98.6 89 19 145/88 99 Room Air 98.6 07/22/17 23:30 88 18 160/91 98 Room Air 07/22/17 23:00 175/106 07/22/17 23:00 87 18 152/93 99 Room Air 07/22/17 22:30 87 18 167/102 99 Room Air 07/22/17 22:00 90 20 152/119 99 Room Air 07/22/17 21:30 90 21 163/100 98 Room Air 07/22/17 21:23 88 163/108 07/22/17 21:00 91 20 150/88 99 Room Air 07/22/17 20:30 90 20 156/97 98 Room Air 07/22/17 20:00 98.0 88 20 161/102 99 Room Air 98.0 07/22/17 19:00 87 24 161/97 99 Room Air 07/22/17 18:20 89 19 141/101 99 Room Air 07/22/17 18:00 85 24 142/119 97 Room Air 07/22/17 17:30 86 18 151/86 99 Room Air 07/22/17 17:00 85 19 148/90 100 Nasal Cannula 2.0 07/22/17 16:30 88 22 147/93 98 Nasal Cannula 2.0 07/22/17 16:00 93 07/22/17 16:00 98.7 92 22 109/69 99 Nasal Cannula 2.0 98.7 07/22/17 15:50 100 07/22/17 15:30 112 22 165/100 98 Nasal Cannula 2.0 07/22/17 15:19 121 162/100 07/22/17 15:00 112 21 162/100 95 Nasal Cannula 2.0 07/22/17 14:40 160/93 07/22/17 14:30 115 23 160/93 97 Nasal Cannula 2.0 07/22/17 14:00 116 17 174/107 97 Nasal Cannula 2.0 07/22/17 13:30 116 16 141/88 97 Nasal Cannula 2.0 07/22/17 13:00 110 22 147/82 97 Nasal Cannula 2.0 07/22/17 12:30 116 19 151/102 99 Nasal Cannula 2.0 07/22/17 12:00 97.8 115 24 165/101 98 Nasal Cannula 2.0 97.8 07/22/17 12:00 115 07/22/17 12:00 120 07/22/17 11:30 119 23 169/91 99 Nasal Cannula 2.0 07/22/17 11:00 122 23 173/107 100 Nasal Cannula 2.0 07/22/17 10:30 115 22 178/113 100 Nasal Cannula 2.0 07/22/17 10:15 110 23 166/103 100 Nasal Cannula 2.0 07/22/17 10:07 178/106 07/22/17 10:00 113 22 178/106 100 Nasal Cannula 2.0 Intake and Output 07/22/17 07/23/17 19:00 07:00 Intake Total 1310 ml 815 ml Output Total 2300 ml 1750 ml Balance -990 ml -935 ml Intake Oral 200 ml 390 ml IV Total 200 ml 305 ml Other 910 ml 120 ml Output Urine Total 2300 ml 1130 ml Emesis 620 ml # Voids 1 Laboratory Tests 07/22/17 10:10: White Blood Count 10.0, Red Blood Count 5.76, Hemoglobin 16.7, Hematocrit 50.4, Mean Corpuscular Volume 87, Mean Corpuscular Hemoglobin 29.0, Mean Corpuscular Hemoglobin Concent 33.2, Red Cell Distribution Width 12.0, Platelet Count 9#*L, Mean Platelet Volume 10.8H, Neutrophils (%) (Auto) , Lymphocytes (%) (Auto) , Monocytes (%) (Auto) , Eosinophils (%) (Auto) , Basophils (%) (Auto) , Differential Total Cells Counted 100, Neutrophils % (Manual) 75, Lymphocytes % ( Manual) 22, Monocytes % (Manual) 2, Eosinophils % (Manual) 1, Basophils % ( Manual) 0, Band Neutrophils 0, Platelet Estimate DecreasedL, Platelet Morphology Normal, Fibrinogen 333 07/22/17 15:02: Troponin I 0.093H 07/22/17 16:30: Urine Color Lamar, Urine Appearance Slightly cloudy, Urine pH 6, Urine Specific [place] 1.015, Urine Protein 4+H, Urine Glucose (UA) 4+H, Urine Ketones Negative , Urine Occult Blood 4+H, Urine Nitrite Negative, Urine Bilirubin Negative, Urine Ictotest Negative, Urine Urobilinogen Normal, Urine Leukocyte Esterase 1+H , Urine RBC 15-20H, Urine WBC 5-10H, Urine Squamous Epithelial Cells Few, Urine Bacteria Few, Urine Yeast FewH 07/22/17 22:16: Hepatitis A IgM Antibody [Pending], Hepatitis B Surface Antigen [Pending], Hepatitis B Core IgM Antibody [Pending], Hepatitis C Antibody [Pending] Height (Feet): 5 Height (Inches): 10.00 Weight (Pounds): 170 General Appearance: WD/WN, no apparent distress, alert EENT: PERRL/EOMI Neck: supple Cardiovascular: normal peripheral pulses Respiratory/Chest: chest wall non-tender Abdomen: normal bowel sounds Colby Flores MD Jul 23, 2017 10:00
--- NOTE | 2017-07-23 10:55 | Critical Care Progress Note ---
Assessment/Plan Assessment/Plan Hypertensive urgency, malignant CHF (congestive heart failure) Hypercapnia Acute respiratory failure right-sided large CVA Renal failure protein calorie malnutrition PLAN BIPAP not needed labs noted and discussed antihypertensives discussed concerns with patient still wants to leave and sign AMA form Critical Care - Subjective Interval Events: seen earlier dressed and wants to leave in the process of signing AMA forms Condition: improving EKG Rhythm: Sinus Rhythm I&O: Intake and Output 07/22/17 07/23/17 19:00 07:00 Intake Total 1310 ml 815 ml Output Total 2300 ml 1750 ml Balance -990 ml -935 ml Intake Oral 200 ml 390 ml IV Total 200 ml 305 ml Other 910 ml 120 ml Output Urine Total 2300 ml 1130 ml Emesis 620 ml # Voids 1 Critical Care - Objective Last 24 Hour Vital Signs Date Time Temp Pulse Resp B/P (MAP) Pulse Ox O2 Delivery O2 Flow Rate FiO2 07/23/17 09:00 97 21 154/104 98 Room Air 07/23/17 08:43 94 126/70 07/23/17 08:00 93 07/23/17 08:00 98.8 96 21 150/95 100 Room Air 98.8 07/23/17 07:00 89 22 145/82 97 Room Air 07/23/17 06:30 93 20 150/88 100 Room Air 07/23/17 06:15 174/137 07/23/17 06:00 85 20 165/82 100 Room Air 07/23/17 05:30 89 20 174/90 100 Room Air 07/23/17 05:00 91 20 160/99 100 Room Air 07/23/17 04:30 91 20 152/96 100 Room Air 07/23/17 04:00 98.2 91 20 151/91 100 Room Air 98.2 07/23/17 04:00 91 07/23/17 03:30 89 22 163/105 100 Room Air 07/23/17 03:00 92 20 156/88 99 Room Air 07/23/17 02:30 93 20 158/97 99 Room Air 07/23/17 02:00 89 20 156/84 99 Room Air 07/23/17 01:30 88 21 160/102 99 Room Air 07/23/17 01:00 89 21 160/100 99 Room Air 6/10/18 00:30 87 19 150/88 99 Room Air 07/23/17 00:00 89 07/23/17 00:00 98.6 89 19 145/88 99 Room Air 98.6 07/22/17 23:30 88 18 160/91 98 Room Air 07/22/17 23:00 175/106 07/22/17 23:00 87 18 152/93 99 Room Air 07/22/17 22:30 87 18 167/102 99 Room Air 07/22/17 22:00 90 20 152/119 99 Room Air 07/22/17 21:30 90 21 163/100 98 Room Air 07/22/17 21:23 88 163/108 07/22/17 21:00 91 20 150/88 99 Room Air 07/22/17 20:30 90 20 156/97 98 Room Air 07/22/17 20:00 98.0 88 20 161/102 99 Room Air 98.0 07/22/17 19:00 87 24 161/97 99 Room Air 07/22/17 18:20 89 19 141/101 99 Room Air 07/22/17 18:00 85 24 142/119 97 Room Air 07/22/17 17:30 86 18 151/86 99 Room Air 07/22/17 17:00 85 19 148/90 100 Nasal Cannula 2.0 07/22/17 16:30 88 22 147/93 98 Nasal Cannula 2.0 07/22/17 16:00 93 07/22/17 16:00 98.7 92 22 109/69 99 Nasal Cannula 2.0 98.7 07/22/17 15:50 100 07/22/17 15:30 112 22 165/100 98 Nasal Cannula 2.0 07/22/17 15:19 121 162/100 07/22/17 15:00 112 21 162/100 95 Nasal Cannula 2.0 07/22/17 14:40 160/93 07/22/17 14:30 115 23 160/93 97 Nasal Cannula 2.0 07/22/17 14:00 116 17 174/107 97 Nasal Cannula 2.0 07/22/17 13:30 116 16 141/88 97 Nasal Cannula 2.0 07/22/17 13:00 110 22 147/82 97 Nasal Cannula 2.0 07/22/17 12:30 116 19 151/102 99 Nasal Cannula 2.0 07/22/17 12:00 97.8 115 24 165/101 98 Nasal Cannula 2.0 97.8 07/22/17 12:00 115 07/22/17 12:00 120 07/22/17 11:30 119 23 169/91 99 Nasal Cannula 2.0 07/22/17 11:00 122 23 173/107 100 Nasal Cannula 2.0 Labs: Labs Test 07/22/17 00:58 07/22/17 01:53 07/22/17 02:20 07/22/17 02:42 Prothrombin Time 10.9 SEC (9.30-11.50) Prothromb Time International Ratio 1.0 (0.9-1.1) Activated Partial Thromboplast Time 28 SEC (23-33) Sodium Level 135 MMOL/L (136-145) Potassium Level 3.2 MMOL/L (3.5-5.1) Chloride Level 98 MMOL/L (98-107) Carbon Dioxide Level 24 MMOL/L (21-32) Anion Gap 13 mmol/L (5-15) Blood Urea Nitrogen 8 mg/dL (7-18) Creatinine 1.9 MG/DL (0.55-1.30) Estimat Glomerular Filtration Rate 45.6 mL/min (>60) Glucose Level 377 MG/DL (74-106) Calcium Level 8.1 MG/DL (8.5-10.1) Total Bilirubin 0.7 MG/DL (0.2-1.0) Aspartate Amino Transf (AST/SGOT) 67 U/L (15-37) Alanine Aminotransferase (ALT/SGPT) 66 U/L (12-78) Alkaline Phosphatase 90 U/L (46-116) Total Creatine Kinase 368 U/L (26-308) Creatine Kinase MB 3.2 NG/ML (0.0-3.6) Creatine Kinase MB Relative Index 0.8 Troponin I 0.047 ng/mL (0.000-0.056) Pro-B-Type Natriuretic Peptide 6126 pg/mL (0-125) Total Protein 8.3 G/DL (6.4-8.2) Albumin 3.0 G/DL (3.4-5.0) Globulin 5.3 g/dL Albumin/Globulin Ratio 0.6 (1.0-2.7) Urine Opiates Screen Negative (NEGATIVE) Urine Barbiturates Screen Negative (NEGATIVE) Phencyclidine (PCP) Screen Negative (NEGATIVE) Urine Amphetamines Screen Negative (NEGATIVE) Urine Benzodiazepines Screen Negative (NEGATIVE) Urine Cocaine Screen Negative (NEGATIVE) Urine Marijuana (THC) Screen Negative (NEGATIVE) White Blood Count 9.1 K/UL (4.8-10.8) Red Blood Count 5.49 M/UL (4.70-6.10) Hemoglobin 16.5 G/DL (14.2-18.0) Hematocrit 48.0 % (42.0-52.0) Mean Corpuscular Volume 87 FL (80-99) Mean Corpuscular Hemoglobin 30.0 PG (27.0-31.0) Mean Corpuscular Hemoglobin Concent 34.3 G/DL (32.0-36.0) Red Cell Distribution Width 12.0 % (11.6-14.8) Platelet Count 20 K/UL (150-450) Mean Platelet Volume 12.4 FL (6.5-10.1) Neutrophils (%) (Auto) % (45.0-75.0) Lymphocytes (%) (Auto) % (20.0-45.0) Monocytes (%) (Auto) % (1.0-10.0) Eosinophils (%) (Auto) % (0.0-3.0) Basophils (%) (Auto) % (0.0-2.0) Differential Total Cells Counted 100 Neutrophils % (Manual) 92 % (45-75) Lymphocytes % (Manual) 4 % (20-45) Monocytes % (Manual) 2 % (1-10) Eosinophils % (Manual) 0 % (0-3) Basophils % (Manual) 2 % (0-2) Band Neutrophils 0 % (0-8) Platelet Estimate Adequate Platelet Morphology Normal Clumped Platelets 1+ HIV (1&2) Antibody Rapid Negative (NEGATIVE) Arterial Blood pH 7.290 (7.350-7.450) Arterial Blood Partial Pressure CO2 52.8 mmHg (35.0-45.0) Arterial Blood Partial Pressure O2 76.5 mmHg (75.0-100.0) Arterial Blood HCO3 25.2 mmol/L (22.0-26.0) Arterial Blood Oxygen Saturation 93.1 % (92.0-98.0) Arterial Blood Base Excess -2.1 Brandyn Test Positive Lactic Acid Level 3.00 mmol/L (0.4-2.0) Test 07/22/17 04:51 07/22/17 06:25 07/22/17 09:00 07/22/17 10:10 Arterial Blood pH 7.420 (7.350-7.450) Arterial Blood Partial Pressure CO2 40.4 mmHg (35.0-45.0) Arterial Blood Partial Pressure O2 119.2 mmHg (75.0-100.0) Arterial Blood HCO3 25.6 mmol/L (22.0-26.0) Arterial Blood Oxygen Saturation 98.2 % (92.0-98.0) Arterial Blood Base Excess 1.1 Brandyn Test Positive Lactic Acid Level 1.50 mmol/L (0.66-2.22) Lactate Dehydrogenase 260 U/L (81-234) Troponin I 0.101 ng/mL (0.000-0.056) White Blood Count 10.0 K/UL (4.8-10.8) Red Blood Count 5.76 M/UL (4.70-6.10) Hemoglobin 16.7 G/DL (14.2-18.0) Hematocrit 50.4 % (42.0-52.0) Mean Corpuscular Volume 87 FL (80-99) Mean Corpuscular Hemoglobin 29.0 PG (27.0-31.0) Mean Corpuscular Hemoglobin Concent 33.2 G/DL (32.0-36.0) Red Cell Distribution Width 12.0 % (11.6-14.8) Platelet Count 9 K/UL (150-450) Mean Platelet Volume 10.8 FL (6.5-10.1) Neutrophils (%) (Auto) % (45.0-75.0) Lymphocytes (%) (Auto) % (20.0-45.0) Monocytes (%) (Auto) % (1.0-10.0) Eosinophils (%) (Auto) % (0.0-3.0) Basophils (%) (Auto) % (0.0-2.0) Differential Total Cells Counted 100 Neutrophils % (Manual) 75 % (45-75) Lymphocytes % (Manual) 22 % (20-45) Monocytes % (Manual) 2 % (1-10) Eosinophils % (Manual) 1 % (0-3) Basophils % (Manual) 0 % (0-2) Band Neutrophils 0 % (0-8) Platelet Estimate Decreased Platelet Morphology Normal Fibrinogen 333 mg/dL (200-400) Test 07/22/17 15:02 07/22/17 16:30 07/22/17 22:16 Troponin I 0.093 ng/mL (0.000-0.056) Urine Color Lamar Urine Appearance Slightly cloudy Urine pH 6 (4.5-8.0) Urine Specific [place] 1.015 (1.005-1.035) Urine Protein 4+ (NEGATIVE) Urine Glucose (UA) 4+ (NEGATIVE) Urine Ketones Negative (NEGATIVE) Urine Occult Blood 4+ (NEGATIVE) Urine Nitrite Negative (NEGATIVE) Urine Bilirubin Negative (NEGATIVE) Urine Ictotest Negative Urine Urobilinogen Normal MG/DL (0.0-1.0) Urine Leukocyte Esterase 1+ (NEGATIVE) Urine RBC 15-20 /HPF (0 - 0) Urine WBC 5-10 /HPF (0 - 0) Urine Squamous Epithelial Cells Few /LPF (NONE/OCC) Urine Bacteria Few /HPF (NONE) Urine Yeast Few /HPF (NONE) Objective: WDWN reduced breath sounds bilaterally [id number] without MRG NABS nontender no HSM no CC edema alert and oriented ambulatory Micro: Microbiology Date/Time Source Procedure Growth Status 07/22/17 02:40 Blood Blood Culture - Preliminary NO GROWTH AFTER 24 HOURS Resulted 07/22/17 02:30 Blood Blood Culture - Preliminary NO GROWTH AFTER 24 HOURS Resulted Accucheck: 263 Abdoulaye Tijerina MD Jul 23, 2017 10:55
--- NOTE | 2017-07-24 13:11 | Discharge Summary ---
Discharge Summary Hospital Course Date of Admission Jul 22, 2017 at 02:15 Date of Discharge Jul 23, 2017 at 09:35 Admitting Diagnosis hypertensive crisis HPI Antonio Delgado is a 52 year old male who was admitted on Jul 22, 2017 at 02:15 for Hypertensive Crisis Hospital Course dc summary #[id number] Discharge Discharge Disposition PATIENT SIGNED AMA Discharge Instructions Discharge Instructions Special Instructions I have been assigned to complete a D/C Summary on this account. I was not involved in the patient management Lucia Roldan NP Jul 24, 2017 13:11
--- NOTE | 2017-07-25 09:15 | Discharge Summary 2 SIG ---
DATE OF ADMISSION: 07/22/2017 DATE OF DISCHARGE: 07/23/2017 DATE OF SIGNING AGAINST MEDICAL ADVICE: 07/23/2017 REASON FOR ADMISSION: 52-year-old male with history of hypertension and diabetes, was brought to emergency room for evaluation due to feeling of lightheadedness. Upon evaluation, blood pressure was extremely high with systolic blood pressure being in the 240s and diastolic in 140s. The patient reported feeling ill with slightly shaking tremors. CT of the head revealed no acute intracranial pathology, but showed chronic right MCA territorial infarctions. The patient was tachycardic with heart rate of 140. The patient was placed on 3 liters oxygen via nasal cannula. ABG revealed at that time pH of 7.29 and pCO2 of 52.8. The patient subsequently was placed on BiPAP. There was no leukocytosis. Stable hemoglobin and hematocrit. Platelet count of only 20,000. Urine toxicology screen was negative. INR within normal limits. Potassium 3.2, BUN 8, and creatinine 1.9. Elevated AST 67 and ALT within normal limits. Troponin was negative. ProBNP 6126. Chest x-ray revealed no acute cardiopulmonary pathology. Blood sugar 377. ADMISSION DIAGNOSES: 1. Respiratory failure. 2. Hypertensive urgency 3. Acute kidney injury. 4. Diabetes mellitus out of control. 5. Cerebrovascular accident with right-sided weakness. 6. Thrombocytopenia CONSULTANTS: 1. Abdoulaye Tijerina M.D., Picked Edge Sewing Machine Operator. 2. Shreyas Palacio M.D., Merchandise Flow Team Leader. 3. Colby Flores M.D., Education Rn. HOSPITAL COURSE: The patient was admitted to ICU. The patient was started on Cardene drip with plan to reduce overall systolic blood pressure approximately 25% over the next 24 hours to maintain systolic blood pressure on the Cardene drip within systolic ratio 160 to 170. Cardiology consult was requested. Merchandise Flow Team Leader added metoprolol in hope to help with tachycardia as well as help the patient to be weaned from the Cardene drip. Echocardiogram preliminary results revealed ejection fraction of 35% with mild left ventricular hypertrophy and global left ventricular hypokinesis. Significant left diastolic dysfunction grade 2. Blood pressure was slowly improving. The patient was started on diuresis with close monitoring of cardiorenal parameters and electrolytes. After diuresis, the patient was able to be weaned from the BiPAP to room air. Pulse oximetry was stable. Pulmonary toilet provided as needed. Renal parameters were closely monitored. Nephrotoxics were avoided. Conservative management provided at this time. Renal ultrasound was ordered to rule out possible obstruction. Blood sugar was managed with sliding scale of insulin. Hematology consult was requested due to thrombocytopenia. Next day, platelet count only 9000. According to dental laboratory technology teacher, the patient had isolated thrombocytopenia secondary to either intramedullary process such as leukemia versus isolated immune thrombocytopenic purpura versus viral infection versus malignancy versus medication versus toxin exposure versus autoimmune. Education Rn recommended bone marrow biopsy on 07/24/2017. The patient had extremely poor understanding of disease process and wanted to leave against medical advice. Education Rn explained to the patient the reason to stay. Hepatitis panel was pending. HIV test was negative. Serology for parvovirus and EBV was ordered, pending. The patient was started on Solu-Medrol for three days with 1 g dosing to see if ITP should improve platelet count in the next three to five days. Education Rn recommended to avoid platelet transfusion unless the patient was actively bleeding. He also recommended to review peripheral smear if any schistocytes or large platelets would be noted. Fibrinogen within normal limits. LDH slightly elevated - 260. Urinalysis showed pyuria. Urine culture revealed strep group B and mixed gram-positive organism, not significant counts. No need for the treatment. Blood cultures were negative. The patient informed the nursing staff that he was feeling better and wanted to leave. Patient symptomatically improved and decided to sign against medical advice. The risks and consequences of signing against medical advice were discussed with the patient. The patient verbalized understanding, signed the form and left. FINAL DIAGNOSES: 1. Hypertensive urgency, malignant 2. Acute kidney injury. 3. Acute hypercapnic respiratory failure, resolved. 4. Cerebrovascular accident with right-sided weakness. 5. Protein-calorie malnutrition. 6. Diabetes mellitus out of control. 7. Thrombocytopenia 8. Cardiomyopathy with systolic and diastolic heart failure ( by preliminary ECHO results) Michael Langston M.D. I have been assigned to dictate discharge summary on this account and I was not involved in the patient's management. Lucia Roldan N.P. (Vanchtein) DR: FRACISCO JOB#: [id number] CC: KRISTIN
--- NOTE | 2017-07-25 13:34 | Cardiology Report ---
APPROVED REPORT EXAM: Two-dimensional and M-mode echocardiogram with Doppler and color Doppler. INDICATION Congestive Heart Failure M-Mode DIMENSIONS IVSd1.2 (0.7-1.1cm)Left Atrium (MM)4.3 (1.6-4.0cm) LVDd5.1 (3.5-5.6cm)Aortic Root2.8 (2.0-3.7cm) PWd1.7 (0.7-1.1cm)Aortic Cusp Exc.2.3 (1.5-2.0cm) LVDs3.9 (2.5-4.0cm) PWs2.1 cm Normal left ventricular chamber size. Global left ventricular hypokinesis. Left ventricular ejection fraction estimated to be 35 -40 %. Mild left ventricular hypertrophy. No evidence of pericardial effusion. All other cardiac chamber sizes are within normal limits. Focal aortic valve sclerosis with adequate cusp excursion. Thickened mitral valve leaflets with normal excursion. Mild mitral annulus and aortic root calcification. Normal pulmonic valve structure. Normal tricuspid valve structure. IVC is normal in size with physiological collapse. A color flow and spectral Doppler study was performed and revealed: Trace aortic insufficiency. Trace mitral regurgitation. Mitral inflow velocities indicates mild distilic dysfucntion. No tricuspid regurgitation. Tricuspid systolic velocities suggests peak right ventricular systolic pressure of 10 mmHg. No pulmonic regurgitation present.
--- NOTE | 2017-07-25 14:19 | Cardiology Report ---
APPROVED REPORT EKG Measurement Heart [id number] Sinus tachycardia Possible Left atrial enlargement Right superior axis deviation Abnormal ECG
== END 2017-07-23 09:35 | disposition home or self-care (01) | DRG 199 ==
LOC: EDUNIT# 00:26 → EDBD 00:26 → EMR 01:08 → EDBEDREQSVC 02:07 → EDBEDREQ 02:08 → ICU 02:15 → EDBEDREQ 06:09
PROC: 5A09357 Assistance with Respiratory Ventilation, Less than 24 Consecutive Hours, Continuous Positive Airway Pressure (ICD-10-PCS; principal; 2017-07-22)
DX: I16.0 Hypertensive urgency (principal); J96.02 Acute respiratory failure with hypercapnia; N17.9 Acute kidney failure, unspecified; E46 Unspecified protein-calorie malnutrition; I69.351 Hemiplegia and hemiparesis following cerebral infarction affecting right dominant side; E11.65 Type 2 diabetes mellitus with hyperglycemia; D69.6 Thrombocytopenia, unspecified; I50.30 Unspecified diastolic (congestive) heart failure; Z88.8 Allergy status to other drugs, medicaments and biological substances; I11.0 Hypertensive heart disease with heart failure
CPT/HCPCS: 36415; 36600; 70450; 71045; 80053; 80307; 81001; 82550; 82553; 82803; 82962; 83010; 83605; 83615; 83880; 84484; 85007; 85025; 85060; 85384; 85610; 85730; 86703; 86705; 86709; 86803; 87040; 87081; 87086; 87340; 93005; 93306; 94660; 94664; 99285; 99291; J1815; J2405

== ENCOUNTER 2018-12-05 12:19 | Inpatient (IN) | payer MEDICAID ==
[~2018-12-05] VITALS: Ht 172.7 cm; Wt 86.2 kg
[~2018-12-05 12:19] MED LIST changes: +METFORMIN HCL500 M4 ORAL
--- NOTE | 2018-12-05 12:20 | NUR ---
ED Nurse Note: pt presents to ED via eMS from home. pt reports feeling SOB and dypsnea a couple hours ago and called the ambulance. pt has a h/o COPD and HTN. pt denies taking anything PACKING ATTENDANT for relief of symptoms. pt denies any pain
--- NOTE | 2018-12-05 12:21 | NUR ---
ED Nurse Note: pitting edema of bilat feet with weak pedal pulses and decreased sensation noted on exam. skin on feet are very dry
--- NOTE | 2018-12-05 12:34 | NUR ---
ED Nurse Note: edema of bilat lower extremities and left hand and arm noted on exam
[2018-12-05 12:40] VITALS: BP 144/96
[2018-12-05 12:59] LABS: BASOPHILS % (AUTO) 1.1 % (0.0-2.0); EOSINOPHILS % (AUTO) 5.1 % (0.0-3.0); HEMATOCRIT 32.4 % (42.0-52.0); HEMOGLOBIN 11.1 G/DL (14.2-18.0); LYMPHOCYTES % (AUTO) 17.2 % (20.0-45.0); MEAN CORPUSCULAR VOLUME 84 FL (80-99); MONOCYTES % (AUTO) 7.7 % (1.0-10.0); NEUTROPHILS % (AUTO) 68.9 % (45.0-75.0); PLATELET COUNT 235 K/UL (150-450); RED BLOOD COUNT 3.88 M/UL (4.70-6.10); RED CELL DISTRIBUTION WIDTH 11.6 % (11.6-14.8); WHITE BLOOD COUNT 6.7 K/UL (4.8-10.8)
--- NOTE | 2018-12-05 13:11 | Emergency Room Report ---
History of Present Illness General Chief Complaint: Dyspnea/Respdistress Source: Patient, EMS Present Illness HPI 53yo M with a history of hypertension, type 2 diabetes, CHF, CAD, presents with running out of his medication for the past 3 days and feeling progressively short of breath, dyspnea on exertion, denies chest pain, denies syncope, denies hemoptysis, does report leg swelling but no leg pain. Recall all of the medications that he is on, but thinks he is on HCTZ. Allergies: Coded Allergies: LITHIUM (Verified Allergy, Unknown, 07/23/13) Patient History Past Medical History: see triage record Reviewed Nursing Documentation: PMH: Agreed; PSxH: Agreed Nursing Documentation-PMH Past Medical History: No History, Except For Hx Cardiac Problems: Yes - CHF Hx Hypertension: Yes Hx Diabetes: Yes Hx Cancer: No Hx Gastrointestinal Problems: No Hx Neurological Problems: No Hx Cerebrovascular Accident: Yes Review of Systems All Other Systems: negative except mentioned in HPI Physical Exam Vital Signs Date Time Temp Pulse Resp B/P (MAP) Pulse Ox O2 Delivery O2 Flow Rate FiO2 12/05/18 12:14 98.2 69 20 144/96 (112) 95 Nasal Cannula 2.0 Sp02 EP Interpretation: reviewed, normal General Appearance: alert, non-toxic, mild distress Head: normocephalic Eyes: bilateral eye normal inspection, bilateral eye PERRL, bilateral eye EOMI ENT: normal ENT inspection, hearing grossly normal, normal pharynx, no angioedema, normal voice, moist mucus membranes Neck: normal inspection, full range of motion, supple, supple/symm/no masses Respiratory: chest non-tender, lungs clear, decreased breath sounds - Diminished at bases, chest symmetrical, palpation of chest normal Cardiovascular #1: normal peripheral pulses, regular rate, rhythm, edema Cardiovascular #2: 2+ radial (R), 2+ radial (L) Gastrointestinal: normal inspection, non tender, soft, no mass, no guarding, no rebound Rectal: deferred Genitourinary: normal inspection, no CVA tenderness Musculoskeletal: back normal, gait/station normal, normal range of motion, non- tender, no calf tenderness Neurologic: alert, responsive, internet project manager III-XII nml as tested, motor strength/tone normal, sensory intact, speech normal Psychiatric: judgement/insight normal, memory normal, mood/affect normal, no suicidal/homicidal ideation Lymphatic: no adenopathy Procedures Critical Care Time Critical Care Time 30 mins excluding all procedures due to respiratory distress Medical Decision Making Diagnostic Impression: Primary Impression: Congestive heart failure (CHF) ER Course With signs and symptoms consistent with CHF exacerbation, given IV Lasix, chest x-ray with fluid overload, patient with no active chest pain, given aspirin, will admit to telemetry. EKG Diagnostic Results EKG Time: 12:31 EP Interpretation: no stemi Rate: normal Rhythm: NSR ST Segments: no acute changes Rhythm Strip Diag. Results Rhythm Strip Time: 13:02 EP Interpretation: yes Rate: 69 Rhythm: NSR, no PVC's, no ectopy Chest X-Ray Diagnostic Results Chest X-Ray Diagnostic Results : Chest X-Ray Ordered: Yes # of Views/Limited/Complete: 1 View Indication: Shortness of Breath Interpretation: other - Megaly, pulmonary vascular congestion, left greater than right effusion Impression: Other - Pulmonary edema pattern, fluid overload Electronically Signed by: Stoney Villeda MD Last Vital Signs Date Time Temp Pulse Resp B/P (MAP) Pulse Ox O2 Delivery O2 Flow Rate FiO2 12/05/18 12:14 98.2 69 20 144/96 (112) 95 Nasal Cannula 2.0 Disposition: ADMITTED INPATIENT Condition: Stable STONEY VILLEDA M.D Dec 05, 2018 13:11
[2018-12-05 13:14] LABS: ANION GAP 12 mmol/L (5-15); BLOOD UREA NITROGEN 17 mg/dL (7-18); CALCIUM 6.8 MG/DL (8.5-10.1); CARBON DIOXIDE 19 MMOL/L (21-32); CHLORIDE 94 MMOL/L (98-107); CREATININE 1.7 MG/DL (0.55-1.30); POTASSIUM 3.4 MMOL/L (3.5-5.1); SODIUM 125 MMOL/L (136-145)
[2018-12-05] MEDS ORDERED: Aspirin Baby 81mg ORAL ONE (13:15)
[2018-12-05 13:26] LABS: ALANINE AMINOTRANSFERASE 26 U/L (12-78); ALBUMIN 2.2 G/DL (3.4-5.0); ALBUMIN/GLOBULIN RATIO 0.6 (1.0-2.7); ALKALINE PHOSPHATASE 62 U/L (46-116); ASPARTATE AMINO TRANSFERASE 44 U/L (15-37); BILIRUBIN,TOTAL 0.3 MG/DL (0.2-1.0)
[2018-12-05 13:54] VITALS: BP 131/83
[2018-12-05 14:30] VITALS: BP 128/97
--- NOTE | 2018-12-05 15:00 | NUR ---
ED Nurse Note: Pt was able to eat 1/2 of a turkey salad sandwich. pt is to be on low sodium diet per ERMD. pt notes that his abdomen and extremities are more edematous than usual
[2018-12-05] MEDS ORDERED: HYDROCHLOROTH12.5 M2 ORAL (15:04)
[2018-12-05] MEDS ORDERED: METFORMIN HCL500 M1 ORAL (15:04)
[2018-12-05] MEDS ORDERED: AMLODIPINE BES2.5 MG ORAL (15:04)
[2018-12-05 15:33] VITALS: BP 135/89
--- NOTE | 2018-12-05 17:09 | NUR ---
ED Nurse Note: report given to MAYCOL Cheek
--- NOTE | 2018-12-05 17:22 | NUR ---
NURSE NOTES: Dr Can Hay called back and gave telephone orders. Order for breathing treatment received. Will proceed the order. Notified RT. Addendum: 12/05/18 at 1959 by JULIO STEELE RN RN wrong time
[2018-12-05 17:30] VITALS: BP 132/86
--- NOTE | 2018-12-05 17:30 | NUR ---
NURSE NOTES: Report received from MAYCOL Martinez. Pt arrived via gurney. Belongings checked. Pt is awake, alert, and oriented x4. Complains of SOB. O2 sat 90-91% on 2L N/C. HOB elevated to high daniels's position. Sinus rhythm on senior nuclear medicine technologist. Urinal at bedside. Edema on bilateral lower extremities, right arm and hand, and abdomen noted. IV to left hand G20 patent and asymptomatic. No skins issues noted. Bed in lowest position. Side rails up x3. Call light within reach. Will resume plan of care.
--- NOTE | 2018-12-05 18:01 | NUR ---
NURSE NOTES: Called and left a message to Dr Hay for admission orders. Awaiting call back for orders.
[2018-12-05] MEDS ORDERED: Morphine Sulfate 2mg/ml Inj(IV/IM USE ONLY) IVP PRN (18:30)
--- NOTE | 2018-12-05 19:10 | NUR ---
NURSE NOTES: Pt was eating dinner in bed and complaint of SOB. RR 28. Oxygen increased to 3L N/C. O2 sat 92-93%. Notified Dr Hay regarding pt's current condition. Repositioned pt in bed. HOB elevated to high Folwer's position. Pt stated that his breathing is better.
--- NOTE | 2018-12-05 19:22 | NUR ---
NURSE NOTES: Dr Can Hay called back and gave telephone orders. Order for breathing treatment received. Will proceed the order. Notified RT.
--- NOTE | 2018-12-05 19:40 | NUR ---
NURSE NOTES: Dr Palacio called back and updated him with pt's current condition. Telephone orders received. Endorsed to cracking machine operator.
--- NOTE | 2018-12-05 19:40 | NUR ---
HAND-OFF: Report given to Jodi James RN.
[2018-12-05] MEDS ORDERED: Albuterol/Ipratropium 3ml neb HHN PRN (20:00)
--- NOTE | 2018-12-05 20:18 | Diagnostic Imaging Report ---
Indication: Shortness of breath Technique: Single AP view of the chest. Comparison: Chest radiograph dated 07/22/2017 Findings: The cardiomediastinal silhouette is unchanged. Interval development of interstitial edema with development of patchy perihilar and bibasilar airspace opacities. No pneumothorax. No large pleural effusion. No acute osseous abnormality. IMPRESSION: Interstitial edema with development of moderate bilateral airspace disease, the differential for which includes pulmonary edema, ARDS, or multifocal pneumonia.
[2018-12-06] VITALS: BP 124/78
[2018-12-06] MEDS ORDERED: LORazepam Inj 2mg/ml 1ml IV PRN (00:15)
--- NOTE | 2018-12-06 01:44 | NUR ---
NURSE NOTES: received pt from efrain SEVERINO., pt is awake and AO x4 resting on the bed. pt is showing SOB with 3L of NC O2sat 94%. Left Hand IV 20G is intact, patent, and clean. Bilateral lower extremities Edema +3 noted and ABD tenderness, soft, and round. pt states no pain at this moment. skin intact. call light within reach. bed at the lowest position, alarmed, and locked. will continue to monitor pt with plan of care.
--- NOTE | 2018-12-06 02:50 | NUR ---
NURSE NOTES: did bladder scanner on pt's lower ABD to make sure if there is no urinary retention. bladder scanner shows pt has only 10ml of urine remained. call light within reach. will keep monitor pt.
[2018-12-06 04:00] VITALS: BP 120/66
[2018-12-06 05:20] LABS: ALANINE AMINOTRANSFERASE 27 U/L (12-78); ALBUMIN 2.5 G/DL (3.4-5.0); ALBUMIN/GLOBULIN RATIO 0.5 (1.0-2.7); ALKALINE PHOSPHATASE 76 U/L (46-116); ANION GAP 9 mmol/L (5-15); ASPARTATE AMINO TRANSFERASE 41 U/L (15-37); BILIRUBIN,TOTAL 0.4 MG/DL (0.2-1.0); BLOOD UREA NITROGEN 27 mg/dL (7-18); CALCIUM 8.2 MG/DL (8.5-10.1); CARBON DIOXIDE 23 MMOL/L (21-32); CHLORIDE 88 MMOL/L (98-107); CREATININE 2.5 MG/DL (0.55-1.30); POTASSIUM 5.8 MMOL/L (3.5-5.1); SODIUM 120 MMOL/L (136-145)
--- NOTE | 2018-12-06 06:16 | NUR ---
NURSE NOTES: left message regarding elevated lab results, K 5.9 , sodium 120, Troponin 0.042. will wait for call back.
--- NOTE | 2018-12-06 06:59 | NUR ---
NURSE NOTES: notified Dr. Palacio regarding New EKG, and SR with BBB.
[2018-12-06] MEDS ORDERED: Sodium Polystyrene Sulfonate 15gm Powder ORAL SCH (07:00)
--- NOTE | 2018-12-06 07:23 | NUR ---
HAND-OFF: Report given to Tsering SEVERINO. endorsed lab results.
--- NOTE | 2018-12-06 07:23 | NUR ---
NURSE NOTES: Received pt from Jodi James RN in stable condition with no cardiopulmonary distress noted. Pt is asleep in bed on 3L O2 via NC. LH 20g IV noted. Urinal at bedside. Skin alterations noted. Left message for Dr. Hay requesting DVT prophylaxis and nephro consult, also informed him of lab results today (Na 120; Cl 88; K 5.8 with Kayexalate given). Awaiting call back. Bed in lowest position, alarm on, side rails up x2, call light within reach. Will continue to monitor.
[2018-12-06 08:00] VITALS: BP 127/71
[2018-12-06] MEDS ORDERED: hydroCHLOROthiazide 12.5mg TAB ORAL SCH (09:00)
[2018-12-06] MEDS ORDERED: metFORMIN 500mg tab ORAL SCH (09:00)
--- NOTE | 2018-12-06 09:10 | NUR ---
P.T Note: P.T. evaluation on hold per 's V.O. Will wait for MD clearance to proceed with P.T evaluation. Conferred with MAYCOL.
[2018-12-06 09:26] LABS: CHOLESTEROL 120 MG/DL (< 200); HDL CHOLESTEROL 44 MG/DL (40-60); PHOSPHORUS 4.2 MG/DL (2.5-4.9); TRIGLYCERIDES 32 MG/DL (30-150)
--- NOTE | 2018-12-06 10:01 | NUR ---
NURSE NOTES: Dr. Marlow came in to see patient. Both Dr. Marlow and Dr. Hay were informed that patient has no VTE prophylaxis. Dr. Hay asked me to request orders from Dr. Marlow. Dr. Marlow states he will put in order after reviewing lab results for today.
--- NOTE | 2018-12-06 10:01 | Consultation ---
Consult Note Consult Note asked to eval at the request of Dr Hay 53yo M with a history of hypertension, type 2 diabetes, CHF, CAD, presents with running out of his medication for the past 3 days and feeling progressively short of breath, dyspnea on exertion, denies chest pain, denies syncope, denies hemoptysis, does report leg swelling but no leg pain. Recall all of the medications that he is on, but thinks he is on HCTZ. Allergies: LITHIUM (Verified Allergy, Unknown, 07/23/13) Past Medical History: No History, Except For Hx Cardiac Problems: Yes - CHF Hx Hypertension: Yes Hx Diabetes: Yes Hx Cerebrovascular Accident: Yes interviewed examined data reviewed Assessment/Plan AMY Cardiomyopathy HypoNatremia DM, Nephropathy HTN h/o DVT Mendez 3% saline and Diuresis RITU kidney 2D echo Madan Marlow MD Dec 06, 2018 10:01
[2018-12-06 10:04] LABS: APPEARANCE,URINE CLEAR; BILIRUBIN, URINE NEGATIVE (NEGATIVE); GLUCOSE, URINE (UA) NEGATIVE (NEGATIVE); KETONES,URINE NEGATIVE (NEGATIVE); LEUKOCYTE ESTERASE ,URINE 1+ (NEGATIVE); NITRITE,URINE NEGATIVE (NEGATIVE); PH,URINE 6 (4.5-8.0); PROTEIN,URINE 3+ (NEGATIVE); UROBILINOGEN,URINE NORMAL MG/DL (0.0-1.0)
[2018-12-06 10:05] LABS: COLOR,URINE YELLOW
[2018-12-06] MEDS: HydrALAZINE 10mg Tab ORAL SCH ×4 (10:12→21:33)
[2018-12-06] MEDS ORDERED: Albuterol/Ipratropium 3ml neb HHN PRN (10:45)
--- NOTE | 2018-12-06 10:48 | Cardiac Electrophysiology PN ---
Subjective Subjective [id number] Objective Last 24 Hour Vital Signs Date Time Temp Pulse Resp B/P (MAP) Pulse Ox O2 Delivery O2 Flow Rate FiO2 12/06/18 10:19 127/71 12/06/18 09:52 94 Nasal Cannula 3.0 32 12/06/18 09:51 64 24 94 Nasal Cannula 3.0 32 12/06/18 08:00 99.3 60 19 127/71 (89) 95 12/06/18 07:48 65 12/06/18 04:00 98.9 60 24 120/66 (84) 93 12/06/18 04:00 3.0 12/06/18 03:33 6 12/06/18 00:00 3.0 12/06/18 00:00 98.7 70 24 124/78 (93) 94 12/05/18 23:27 67 12/05/18 22:25 69 20 95 Nasal Cannula 3.0 32 12/05/18 22:15 72 22 93 Nasal Cannula 3.0 32 12/05/18 22:15 72 22 93 Nasal Cannula 3.0 32 12/05/18 22:15 93 Nasal Cannula 3.0 32 12/05/18 21:00 Nasal Cannula 3.0 Nasal Cannula 3.0 12/05/18 19:39 70 12/05/18 19:00 3.0 12/05/18 18:04 67 12/05/18 18:01 Nasal Cannula 2.0 Nasal Cannula 2.0 12/05/18 18:00 2.0 12/05/18 17:30 98.3 69 20 132/86 (101) 91 12/05/18 17:29 67 22 100 Nasal Cannula 2.0 12/05/18 15:33 89 17 135/89 96 Nasal Cannula 2.0 12/05/18 14:30 14 128/97 97 Room Air 12/05/18 13:54 14 131/83 98 Room Air 12/05/18 12:40 98.2 20 144/96 95 Nasal Cannula 2.0 12/05/18 12:30 69 20 Nasal Cannula 2.0 12/05/18 12:14 98.2 69 20 144/96 (112) 95 Nasal Cannula 2.0 Intake and Output 12/05/18 12/06/18 19:00 07:00 Output Total 200 ml 200 ml Balance -200 ml -200 ml Output Urine Total 200 ml 200 ml # Voids 2 Laboratory Tests Test 12/05/18 12:30 12/05/18 19:13 12/05/18 20:35 12/06/18 03:00 White Blood Count 6.7 K/UL (4.8-10.8) Red Blood Count 3.88 M/UL (4.70-6.10) L Hemoglobin 11.1 G/DL (14.2-18.0) L Hematocrit 32.4 % (42.0-52.0) L Mean Corpuscular Volume 84 FL (80-99) Mean Corpuscular Hemoglobin 28.5 PG (27.0-31.0) Mean Corpuscular Hemoglobin Concent 34.1 G/DL (32.0-36.0) Red Cell Distribution Width 11.6 % (11.6-14.8) Platelet Count 235 K/UL (150-450) Mean Platelet Volume 5.8 FL (6.5-10.1) L Neutrophils (%) (Auto) 68.9 % (45.0-75.0) Lymphocytes (%) (Auto) 17.2 % (20.0-45.0) L Monocytes (%) (Auto) 7.7 % (1.0-10.0) Eosinophils (%) (Auto) 5.1 % (0.0-3.0) H Basophils (%) (Auto) 1.1 % (0.0-2.0) Sodium Level 125 MMOL/L (136-145) L 120 MMOL/L (136-145) L Potassium Level 3.4 MMOL/L (3.5-5.1) L 5.8 MMOL/L (3.5-5.1) #H Chloride Level 94 MMOL/L (98-107) L 88 MMOL/L (98-107) L Carbon Dioxide Level 19 MMOL/L (21-32) L 23 MMOL/L (21-32) Anion Gap 12 mmol/L (5-15) 9 mmol/L (5-15) Blood Urea Nitrogen 17 mg/dL (7-18) 27 mg/dL (7-18) H Creatinine 1.7 MG/DL (0.55-1.30) H 2.5 MG/DL (0.55-1.30) H Estimat Glomerular Filtration Rate 51.5 mL/min (>60) 33.1 mL/min (>60) Glucose Level 100 MG/DL (74-106) 93 MG/DL (74-106) Calcium Level 6.8 MG/DL (8.5-10.1) L 8.2 MG/DL (8.5-10.1) #L Total Bilirubin 0.3 MG/DL (0.2-1.0) 0.4 MG/DL (0.2-1.0) Aspartate Amino Transf (AST/SGOT) 44 U/L (15-37) H 41 U/L (15-37) H Alanine Aminotransferase (ALT/SGPT) 26 U/L (12-78) 27 U/L (12-78) Alkaline Phosphatase 62 U/L (46-116) 76 U/L (46-116) Troponin I 0.039 ng/mL (0.000-0.056) 0.036 ng/mL (0.000-0.056) 0.042 ng/mL (0.000-0.056) Pro-B-Type Natriuretic Peptide 52935 pg/mL (0-125) H 36297 pg/mL (0-125) H Total Protein 6.1 G/DL (6.4-8.2) L 7.2 G/DL (6.4-8.2) Albumin 2.2 G/DL (3.4-5.0) L 2.5 G/DL (3.4-5.0) L Globulin 3.9 g/dL 4.7 g/dL Albumin/Globulin Ratio 0.6 (1.0-2.7) L 0.5 (1.0-2.7) L Prothrombin Time 10.8 SEC (9.30-11.50) Prothromb Time International Ratio 1.0 (0.9-1.1) Hemoglobin A1c 5.5 % (4.3-6.0) Osmolality 255 mOsm/kg (297-317) L Uric Acid 5.6 MG/DL (2.6-7.2) Phosphorus Level 4.2 MG/DL (2.5-4.9) Magnesium Level 1.9 MG/DL (1.8-2.4) C-Reactive Protein, Quantitative < 0.4 mg/dL (0.00-0.90) Triglycerides Level 32 MG/DL (30-150) Cholesterol Level 120 MG/DL (< 200) LDL Cholesterol 72 mg/dL (<100) HDL Cholesterol 44 MG/DL (40-60) Cholesterol/HDL Ratio 2.7 (3.3-4.4) L Thyroid Stimulating Hormone (TSH) 2.240 uiU/mL (0.358-3.740) Test 12/06/18 09:50 Urine Color Yellow Urine Appearance Clear Urine pH 6 (4.5-8.0) Urine Specific [place] 1.010 (1.005-1.035) Urine Protein 3+ (NEGATIVE) H Urine Glucose (UA) Negative (NEGATIVE) Urine Ketones Negative (NEGATIVE) Urine Blood 3+ (NEGATIVE) H Urine Nitrite Negative (NEGATIVE) Urine Bilirubin Negative (NEGATIVE) Urine Urobilinogen Normal MG/DL (0.0-1.0) Urine Leukocyte Esterase 1+ (NEGATIVE) H Urine RBC 5-10 /HPF (0 - 0) H Urine WBC 5-10 /HPF (0 - 0) H Urine Squamous Epithelial Cells Few /LPF (NONE/OCC) Urine Bacteria Occasional /HPF (NONE) Urine Osmolality 279 mOsm/kg (429-449) L Urine Opiates Screen Negative (NEGATIVE) Urine Barbiturates Screen Negative (NEGATIVE) Phencyclidine (PCP) Screen Negative (NEGATIVE) Urine Amphetamines Screen Negative (NEGATIVE) Urine Benzodiazepines Screen Negative (NEGATIVE) Urine Cocaine Screen Negative (NEGATIVE) Urine Marijuana (THC) Screen Negative (NEGATIVE) Shreyas Palacio MD Dec 06, 2018 10:48
--- NOTE | 2018-12-06 10:56 | Consultation ---
History of Present Illness General Date patient seen: Dec 06, 2018 Chief Complaint: Dyspnea/Respdistress Present Illness HPI 53 year old male with hx of HTN, hypertensive heart disease, EF of 35% last year , noncompliance, DM presented to ER with CC of dyspnea for two days. His CXR showed pulmonary edema. He is admitted to [facility] for further treatment. Allergies: Coded Allergies: LITHIUM (Verified Allergy, Unknown, 07/23/13) Medication History Scheduled Amlodipine Besylate* (Amlodipine Besylate*), 2.5 MG ORAL DAILY, (Reported) Hydrochlorothiazide* (Hydrochlorothiazide*), 12.5 MG ORAL DAILY, (Reported) Metformin Hcl (Metformin Hcl Er), 500 MG ORAL BID, (Reported) Metformin Hcl* (Metformin Hcl*), 500 MG ORAL TWICE A DAY, (Reported) Miscellaneous Medications [hctz], (Reported) [metformin], (Reported) [metformin], (Reported) Patient History Healthcare decision maker Resuscitation status Full Code Advanced Directive on File Past Medical/Surgical History Past Medical/Surgical History: (1) Pulmonary edema (2) Hypertensive heart disease (3) Diabetic nephropathy (4) Diabetes mellitus Review of Systems All Other Systems: negative except mentioned in HPI Physical Exam General Appearance: WD/WN Lines, tubes and drains: peripheral HEENT: normocephalic Neck: non-tender, normal alignment Respiratory/Chest: chest wall non-tender, lungs clear Breasts: no masses Cardiovascular/Chest: normal peripheral pulses Extremities: normal range of motion, other - edema Last 24 Hour Vital Signs Date Time Temp Pulse Resp B/P (MAP) Pulse Ox O2 Delivery O2 Flow Rate FiO2 12/06/18 10:19 127/71 12/06/18 09:52 94 Nasal Cannula 3.0 32 12/06/18 09:51 64 24 94 Nasal Cannula 3.0 32 12/06/18 08:00 99.3 60 19 127/71 (89) 95 12/06/18 07:48 65 12/06/18 04:00 98.9 60 24 120/66 (84) 93 12/06/18 04:00 3.0 12/06/18 03:33 6 12/06/18 00:00 3.0 12/06/18 00:00 98.7 70 24 124/78 (93) 94 10/23/19 23:27 67 12/05/18 22:25 69 20 95 Nasal Cannula 3.0 32 12/05/18 22:15 72 22 93 Nasal Cannula 3.0 32 12/05/18 22:15 72 22 93 Nasal Cannula 3.0 32 12/05/18 22:15 93 Nasal Cannula 3.0 32 12/05/18 21:00 Nasal Cannula 3.0 Nasal Cannula 3.0 12/05/18 19:39 70 12/05/18 19:00 3.0 12/05/18 18:04 67 12/05/18 18:01 Nasal Cannula 2.0 Nasal Cannula 2.0 12/05/18 18:00 2.0 12/05/18 17:30 98.3 69 20 132/86 (101) 91 12/05/18 17:29 67 22 100 Nasal Cannula 2.0 12/05/18 15:33 89 17 135/89 96 Nasal Cannula 2.0 12/05/18 14:30 14 128/97 97 Room Air 12/05/18 13:54 14 131/83 98 Room Air 12/05/18 12:40 98.2 20 144/96 95 Nasal Cannula 2.0 12/05/18 12:30 69 20 Nasal Cannula 2.0 12/05/18 12:14 98.2 69 20 144/96 (112) 95 Nasal Cannula 2.0 Intake and Output 12/05/18 12/06/18 19:00 07:00 Output Total 200 ml 200 ml Balance -200 ml -200 ml Output Urine Total 200 ml 200 ml # Voids 2 Laboratory Tests Test 12/05/18 12:30 12/05/18 19:13 12/05/18 20:35 12/06/18 03:00 White Blood Count 6.7 K/UL (4.8-10.8) Red Blood Count 3.88 M/UL (4.70-6.10) L Hemoglobin 11.1 G/DL (14.2-18.0) L Hematocrit 32.4 % (42.0-52.0) L Mean Corpuscular Volume 84 FL (80-99) Mean Corpuscular Hemoglobin 28.5 PG (27.0-31.0) Mean Corpuscular Hemoglobin Concent 34.1 G/DL (32.0-36.0) Red Cell Distribution Width 11.6 % (11.6-14.8) Platelet Count 235 K/UL (150-450) Mean Platelet Volume 5.8 FL (6.5-10.1) L Neutrophils (%) (Auto) 68.9 % (45.0-75.0) Lymphocytes (%) (Auto) 17.2 % (20.0-45.0) L Monocytes (%) (Auto) 7.7 % (1.0-10.0) Eosinophils (%) (Auto) 5.1 % (0.0-3.0) H Basophils (%) (Auto) 1.1 % (0.0-2.0) Sodium Level 125 MMOL/L (136-145) L 120 MMOL/L (136-145) L Potassium Level 3.4 MMOL/L (3.5-5.1) L 5.8 MMOL/L (3.5-5.1) #H Chloride Level 94 MMOL/L (98-107) L 88 MMOL/L (98-107) L Carbon Dioxide Level 19 MMOL/L (21-32) L 23 MMOL/L (21-32) Anion Gap 12 mmol/L (5-15) 9 mmol/L (5-15) Blood Urea Nitrogen 17 mg/dL (7-18) 27 mg/dL (7-18) H Creatinine 1.7 MG/DL (0.55-1.30) H 2.5 MG/DL (0.55-1.30) H Estimat Glomerular Filtration Rate 51.5 mL/min (>60) 33.1 mL/min (>60) Glucose Level 100 MG/DL (74-106) 93 MG/DL (74-106) Calcium Level 6.8 MG/DL (8.5-10.1) L 8.2 MG/DL (8.5-10.1) #L Total Bilirubin 0.3 MG/DL (0.2-1.0) 0.4 MG/DL (0.2-1.0) Aspartate Amino Transf (AST/SGOT) 44 U/L (15-37) H 41 U/L (15-37) H Alanine Aminotransferase (ALT/SGPT) 26 U/L (12-78) 27 U/L (12-78) Alkaline Phosphatase 62 U/L (46-116) 76 U/L (46-116) Troponin I 0.039 ng/mL (0.000-0.056) 0.036 ng/mL (0.000-0.056) 0.042 ng/mL (0.000-0.056) Pro-B-Type Natriuretic Peptide 13882 pg/mL (0-125) H 16959 pg/mL (0-125) H Total Protein 6.1 G/DL (6.4-8.2) L 7.2 G/DL (6.4-8.2) Albumin 2.2 G/DL (3.4-5.0) L 2.5 G/DL (3.4-5.0) L Globulin 3.9 g/dL 4.7 g/dL Albumin/Globulin Ratio 0.6 (1.0-2.7) L 0.5 (1.0-2.7) L Prothrombin Time 10.8 SEC (9.30-11.50) Prothromb Time International Ratio 1.0 (0.9-1.1) Hemoglobin A1c 5.5 % (4.3-6.0) Osmolality 255 mOsm/kg (297-317) L Uric Acid 5.6 MG/DL (2.6-7.2) Phosphorus Level 4.2 MG/DL (2.5-4.9) Magnesium Level 1.9 MG/DL (1.8-2.4) C-Reactive Protein, Quantitative < 0.4 mg/dL (0.00-0.90) Triglycerides Level 32 MG/DL (30-150) Cholesterol Level 120 MG/DL (< 200) LDL Cholesterol 72 mg/dL (<100) HDL Cholesterol 44 MG/DL (40-60) Cholesterol/HDL Ratio 2.7 (3.3-4.4) L Thyroid Stimulating Hormone (TSH) 2.240 uiU/mL (0.358-3.740) Test 12/06/18 09:50 Urine Color Yellow Urine Appearance Clear Urine pH 6 (4.5-8.0) Urine Specific [place] 1.010 (1.005-1.035) Urine Protein 3+ (NEGATIVE) H Urine Glucose (UA) Negative (NEGATIVE) Urine Ketones Negative (NEGATIVE) Urine Blood 3+ (NEGATIVE) H Urine Nitrite Negative (NEGATIVE) Urine Bilirubin Negative (NEGATIVE) Urine Urobilinogen Normal MG/DL (0.0-1.0) Urine Leukocyte Esterase 1+ (NEGATIVE) H Urine RBC 5-10 /HPF (0 - 0) H Urine WBC 5-10 /HPF (0 - 0) H Urine Squamous Epithelial Cells Few /LPF (NONE/OCC) Urine Bacteria Occasional /HPF (NONE) Urine Osmolality 279 mOsm/kg (429-449) L Urine Opiates Screen Negative (NEGATIVE) Urine Barbiturates Screen Negative (NEGATIVE) Phencyclidine (PCP) Screen Negative (NEGATIVE) Urine Amphetamines Screen Negative (NEGATIVE) Urine Benzodiazepines Screen Negative (NEGATIVE) Urine Cocaine Screen Negative (NEGATIVE) Urine Marijuana (THC) Screen Negative (NEGATIVE) Height (Feet): 5 Height (Inches): 8.00 Weight (Pounds): 160 Medications Current Medications Medications (Trade) Dose Ordered Sig/Manuelito Route PRN Reason Start Time Stop Time Status Last Admin Dose Admin Albuterol/ Ipratropium (Albuterol/ Ipratropium) 3 ml EVERY 4 HOURS PRN HHN Shortness of Breath 12/06/18 10:45 12/10/18 19:59 UNV Docusate Sodium (Colace) 100 mg THREE TIMES A DAY ORAL 12/06/18 13:00 01/05/19 12:59 Furosemide (Lasix) 20 mg Q8H IV 12/06/18 17:00 01/05/19 16:59 Hydralazine HCl (Apresoline) 10 mg Q6HR ORAL 12/06/18 10:00 01/05/19 09:59 12/06/18 10:19 Lorazepam (Ativan 2mg/ml 1ml) 1 mg Q4H PRN IV For Anxiety 12/06/18 00:15 12/13/18 00:14 Morphine Sulfate (Morphine Sulfate) 2 mg Q4H PRN IVP PAIN 4-10 12/05/18 18:30 12/12/18 18:29 Pantoprazole (Protonix) 40 mg EVERY 12 HOURS ORAL 12/06/18 10:00 01/05/19 09:59 12/06/18 10:12 Sodium Chloride 500 ml @ 30 mls/hr ONCE ONCE IV 12/06/18 11:00 12/07/18 03:39 12/06/18 10:17 Assessment/Plan Problem List: (1) Pulmonary edema ICD Codes: J81.1 - Chronic pulmonary edema SNOMED: 94006576 (2) Hyponatremia ICD Codes: E87.1 - Hypo-osmolality and hyponatremia SNOMED: 87618172 (3) Congestive heart failure (CHF) ICD Codes: I50.9 - Heart failure, unspecified SNOMED: 30216711 (4) Hypertensive heart disease ICD Codes: I11.9 - Hypertensive heart disease without heart failure SNOMED: 18513308 (5) Diabetes mellitus ICD Codes: E11.9 - Type 2 diabetes mellitus without complications SNOMED: 01024109 (6) Diabetic nephropathy ICD Codes: E11.21 - Type 2 diabetes mellitus with diabetic nephropathy SNOMED: 525727073 Assessment/Plan: respiratory treatment Echocardiogram sliding scale diabetic diet intake and output dvt prophylaxis. Giovani Carranza MD Dec 06, 2018 10:56
--- NOTE | 2018-12-06 10:59 | NUR ---
*-* INSURANCE *-* ALL AVAILABLE CLINICALS HAVE BEEN FAXED TO: [facility] NO CM ASSIGNED PH#[phone] FAX#[phone] REVIEWS/CLINICALS & [facility] NO CM YET PH#[phone] FAX#[phone] REVIEWS/CLINCALS
[2018-12-06] MEDS ORDERED: NaCl 3% 500ml 500 ML IV ONE (11:00)
[2018-12-06 12:00] VITALS: BP 131/85
--- NOTE | 2018-12-06 12:24 | Diagnostic Imaging Report ---
Indication: Acute renal failure Technique: Grayscale and duplex images of the kidneys, retroperitoneum, and bladder were obtained. Comparison: none Findings: Right kidney measures 11.4 cm in length. Left kidney measures 10.9 cm in length. Right kidney demonstrates increased echogenicity. Left kidney demonstrates normal echogenicity. No hydronephrosis. A cyst is seen in the left kidney. Normal inferior vena cava. Bladder demonstrates normal ureteral jets. There is thickening versus mass of the posterior wall of the bladder. Prostate volume is 36 mL. There are bilateral pleural effusions Impression: Posterior bladder wall thickening versus mass. Consider cystoscopy for further evaluation Increased right renal echogenicity, could indicate medical renal disease Negative for hydronephrosis And bilateral pleural effusions Incidental finding left renal cyst.
[2018-12-06 12:32] LABS: ANION GAP 7 mmol/L (5-15); BLOOD UREA NITROGEN 29 mg/dL (7-18); CARBON DIOXIDE 24 MMOL/L (21-32); CHLORIDE 88 MMOL/L (98-107); CREATININE 2.5 MG/DL (0.55-1.30); POTASSIUM 4.9 MMOL/L (3.5-5.1)
[2018-12-06] MEDS: Docusate 100mg cap ORAL SCH ×2 (12:35→17:55)
[2018-12-06 12:38] LABS: CREATINE KINASE 331 U/L (26-308)
[2018-12-06 13:18] LABS: SODIUM 118 MMOL/L (136-145)
[2018-12-06 16:00] VITALS: BP 136/79
--- NOTE | 2018-12-06 19:21 | NUR ---
HAND-OFF: Report given to MAYCOL Vargas. Pt in stable condition.
--- NOTE | 2018-12-06 19:22 | NUR ---
NURSE NOTES: Received patient from Tsering SEVERINO. Patient is awake, alert and oriented x3-x4. Patient receiving oxygen via Nasal Cannula at 3L/min, no signs of respiratory distress. IV site is left hand 20g receiving 3% NaCl at 30cc/hr. Mendez catheter is patent and draining. Bed is locked, placed in lowest position, side rails up x3, bed alarm on, call light within reach. Will continue to monitor.
[2018-12-06 20:00] VITALS: BP 141/74
--- NOTE | 2018-12-06 21:00 | NUR ---
NURSE NOTES: Patient complained of shortness of breath. Head of bed elevated and breathing treatment given by RT. Will continue to monitor.
[2018-12-07] VITALS: BP 113/80
--- NOTE | 2018-12-07 03:02 | NUR ---
NURSE NOTES: Upon entering room, patient's IV was found not intact, removed IV and started Right hand 22g. Will continue to monitor.
--- NOTE | 2018-12-07 03:03 | NUR ---
NURSE NOTES: Patient complained of pain from Mendez catheter, Patient refused to keep Mendez catheter in, removed Mendez Catheter and gave patient a urinal. Will continue to monitor.
[2018-12-07 04:00] VITALS: BP 151/95
[2018-12-07 04:40] LABS: BASOPHILS % (AUTO) 1.2 % (0.0-2.0); HEMOGLOBIN 9.5 G/DL (14.2-18.0); LYMPHOCYTES % (AUTO) 11.6 % (20.0-45.0); MEAN CORPUSCULAR VOLUME 84 FL (80-99); MONOCYTES % (AUTO) 11.9 % (1.0-10.0); NEUTROPHILS % (AUTO) 72.3 % (45.0-75.0); PLATELET COUNT 225 K/UL (150-450); RED BLOOD COUNT 3.33 M/UL (4.70-6.10); RED CELL DISTRIBUTION WIDTH 11.6 % (11.6-14.8); WHITE BLOOD COUNT 7.5 K/UL (4.8-10.8)
[2018-12-07 04:44] LABS: INR 1.1 (0.9-1.1)
[2018-12-07] MEDS: HydrALAZINE 10mg Tab ORAL SCH ×2 (04:46→09:00)
[2018-12-07 05:11] LABS: AMMONIA 29 umol/L (11-32)
[2018-12-07 05:28] LABS: ALANINE AMINOTRANSFERASE 24 U/L (12-78); ALBUMIN 2.5 G/DL (3.4-5.0); ALBUMIN/GLOBULIN RATIO 0.6 (1.0-2.7); ALKALINE PHOSPHATASE 70 U/L (46-116); ANION GAP 8 mmol/L (5-15); ASPARTATE AMINO TRANSFERASE 36 U/L (15-37); BILIRUBIN,TOTAL 0.4 MG/DL (0.2-1.0); BLOOD UREA NITROGEN 35 mg/dL (7-18); CARBON DIOXIDE 24 MMOL/L (21-32); CHLORIDE 92 MMOL/L (98-107); CREATININE 2.7 MG/DL (0.55-1.30); FERRITIN 202 NG/ML (8-388); PHOSPHORUS 4.6 MG/DL (2.5-4.9); POTASSIUM 4.1 MMOL/L (3.5-5.1); SODIUM 124 MMOL/L (136-145)
[2018-12-07 05:49] LABS: % IRON SATURATION 9 % (15-50); IRON 25 ug/dL (50-175); TOTAL IRON BINDING CAPACITY 275 ug/dL (250-450)
--- NOTE | 2018-12-07 06:17 | NUR ---
NURSE NOTES: Left message to Dr. Marlow's office regarding Sodium level.
--- NOTE | 2018-12-07 07:03 | NUR ---
HAND-OFF: Report given to Tsering SEVERINO. Patient in stable condition.
--- NOTE | 2018-12-07 07:03 | NUR ---
NURSE NOTES: Received pt from MAYCOL Vargas in stable condition with no cardiopulmonary distress noted. Pt is asleep in bed on 3L O2 via NC. RH 22g IV noted. Urinal at bedside. Skin alterations noted. Bed in lowest position, alarm on, side rails up x2, call light within reach. Will continue to monitor.
[2018-12-07 08:00] VITALS: BP 168/83
[2018-12-07] MEDS: Docusate 100mg cap ORAL SCH ×3 (08:04→17:29)
--- NOTE | 2018-12-07 08:16 | NUR ---
RADIOLOGY DEPT., CHEST X-RAY DONE.-P.DYE
--- NOTE | 2018-12-07 08:40 | Diagnostic Imaging Report ---
Indication: Cough Technique: One view of the chest Comparison: 12/05/2018 Findings: The heart is enlarged. There are bilateral diffuse interstitial and airspace infiltrates versus edema. Appearance is unchanged from prior study. Impression: Unchanged, over one day, findings as above.
[2018-12-07] MEDS: Heparin 5000 units/ml inj SUBQ SCH ×2 (08:58→20:31)
--- NOTE | 2018-12-07 09:03 | General Progress Note ---
Assessment/Plan Problem List: (1) UTI (urinary tract infection) ICD Codes: N39.0 - Urinary tract infection, site not specified SNOMED: 85234654 (2) Renal insufficiency ICD Codes: N28.9 - Disorder of kidney and ureter, unspecified SNOMED: 723084432, 349193722 (3) Anemia ICD Codes: D64.9 - Anemia, unspecified SNOMED: 324579316 (4) Hyponatremia ICD Codes: E87.1 - Hypo-osmolality and hyponatremia SNOMED: 17310689 (5) Congestive heart failure (CHF) ICD Codes: I50.9 - Heart failure, unspecified SNOMED: 16960667 Status: stable, progressing Assessment/Plan: pt diet o2 pulm tx abx cbc bmp am aru eval Subjective Constitutional: Reports: weakness Allergies: Coded Allergies: LITHIUM (Verified Allergy, Unknown, 07/23/13) All Systems: reviewed and negative except above Subjective o2nc calm Objective Last 24 Hour Vital Signs Date Time Temp Pulse Resp B/P (MAP) Pulse Ox O2 Delivery O2 Flow Rate FiO2 12/07/18 08:00 83 12/07/18 08:00 97.5 85 20 168/83 (111) 93 12/07/18 08:00 3.0 12/07/18 08:00 Nasal Cannula 3.0 Nasal Cannula 3.0 12/07/18 06:11 141/61 12/07/18 04:46 151/95 12/07/18 04:00 3.0 12/07/18 04:00 98.9 74 22 151/95 (113) 95 12/07/18 03:35 81 12/07/18 03:00 Nasal Cannula 3.0 Nasal Cannula 3.0 12/07/18 00:00 97.9 85 20 113/80 (91) 96 12/06/18 23:48 113/80 12/06/18 21:33 146/86 12/06/18 21:09 76 20 97 Nasal Cannula 3.0 32 12/06/18 21:00 Nasal Cannula 3.0 Nasal Cannula 3.0 12/06/18 20:59 75 20 94 Nasal Cannula 3.0 32 12/06/18 20:39 78 12/06/18 20:00 3.0 12/06/18 20:00 98.4 79 18 141/74 (96) 96 12/06/18 19:23 95 Nasal Cannula 3.0 32 12/06/18 19:23 73 20 95 Nasal Cannula 3.0 32 12/06/18 17:55 120/78 12/06/18 16:44 136/79 12/06/18 16:00 98.2 74 18 136/79 (98) 97 12/06/18 16:00 Nasal Cannula 3.0 Nasal Cannula 3.0 12/06/18 16:00 3.0 12/06/18 15:38 82 12/06/18 12:35 131/85 12/06/18 12:00 63 12/06/18 12:00 Nasal Cannula 3.0 Nasal Cannula 3.0 12/06/18 12:00 3.0 12/06/18 12:00 98.2 63 20 131/85 (100) 93 12/06/18 10:19 127/71 12/06/18 09:52 94 Nasal Cannula 3.0 32 12/06/18 09:51 64 24 94 Nasal Cannula 3.0 32 Intake and Output 12/06/18 12/07/18 19:00 07:00 Intake Total 560 ml 243 ml Output Total 650 ml 750 ml Balance -90 ml -507 ml Intake Oral 320 ml 240 ml IV Total 240 ml 3 ml Output Urine Total 650 ml 750 ml # Voids 1 Laboratory Tests 12/06/18 09:50: Urine Color Yellow, Urine Appearance Clear, Urine pH 6, Urine Specific [place] 1.010, Urine Protein 3+H, Urine Glucose (UA) Negative, Urine Ketones Negative, Urine Blood 3+H, Urine Nitrite Negative, Urine Bilirubin Negative, Urine Urobilinogen Normal, Urine Leukocyte Esterase 1+H, Urine RBC 5-10H, Urine WBC 5- 10H, Urine Squamous Epithelial Cells Few, Urine Bacteria Occasional, Urine Osmolality 279L, Urine Opiates Screen Negative, Urine Barbiturates Screen Negative, Phencyclidine (PCP) Screen Negative, Urine Amphetamines Screen Negative, Urine Benzodiazepines Screen Negative, Urine Cocaine Screen Negative, Urine Marijuana (THC) Screen Negative 12/06/18 12:05: Sodium Level 118*L, Potassium Level 4.9, Chloride Level 88L, Carbon Dioxide Level 24, Anion Gap 7, Blood Urea Nitrogen 29H, Creatinine 2.5H, Estimat Glomerular Filtration Rate 33.1, Glucose Level 98, Uric Acid 5.7, Calcium Level 8.0L, Total Creatine Kinase 331H, Troponin I 0.050 12/07/18 03:10: Sodium Level 124L, Potassium Level 4.1, Chloride Level 92L, Carbon Dioxide Level 24, Anion Gap 8, Blood Urea Nitrogen 35H, Creatinine 2.7H, Estimat Glomerular Filtration Rate 30.2, Glucose Level 118H, Calcium Level 8.0L, White Blood Count 7.5, Red Blood Count 3.33L, Hemoglobin 9.5L, Hematocrit 28.0L, Mean Corpuscular Volume 84, Mean Corpuscular Hemoglobin 28.6, Mean Corpuscular Hemoglobin Concent 34.0, Red Cell Distribution Width 11.6, Platelet Count 225, Mean Platelet Volume 5.9L, Neutrophils (%) (Auto) 72.3, Lymphocytes (%) (Auto) 11.6L, Monocytes (%) (Auto) 11.9H, Eosinophils (%) (Auto) 3.0, Basophils (%) ( Auto) 1.2, Neutrophils % (Manual) [Pending], Lymphocytes % (Manual) [Pending], Platelet Estimate [Pending], Platelet Morphology [Pending], Erythrocyte Sedimentation Rate 64H, Reticulocyte Count [Pending], Prothrombin Time 11.5, Prothromb Time International Ratio 1.1, Activated Partial Thromboplast Time 31, Phosphorus Level 4.6, Magnesium Level 1.8, Iron Level 25L, Total Iron Binding Capacity 275, Percent Iron Saturation 9L, Unsaturated Iron Binding 250, Ferritin 202, Total Bilirubin 0.4, Aspartate Amino Transf (AST/SGOT) 36, Alanine Aminotransferase (ALT/SGPT) 24, Alkaline Phosphatase 70, Ammonia 29, Lactate Dehydrogenase 210, C-Reactive Protein, Quantitative 1.2H, Pro-B-Type Natriuretic Peptide 77341E, Total Protein 6.8, Albumin 2.5L, Globulin 4.3, Albumin/Globulin Ratio 0.6L, Carcinoembryonic Antigen [Pending], Vitamin B12 Level 506, Folate 7.5L, Free Thyroxine 1.10, Free Triiodothyronine 1.4L Height (Feet): 5 Height (Inches): 8.00 Weight (Pounds): 190 General Appearance: lethargic EENT: normal ENT inspection Neck: normal alignment Cardiovascular: normal peripheral pulses, normal rate, regular rhythm Respiratory/Chest: chest wall non-tender, lungs clear, normal breath sounds Abdomen: normal bowel sounds, non tender, soft Extremities: normal inspection Edema: no edema noted Arm (L), no edema noted Arm (R), no edema noted Leg (L), no edema noted Leg (R), no edema noted Pedal (L), no edema noted Pedal (R), no edema noted Generalized Neurologic: motor weakness Skin: normal pigmentation, warm/dry Can Hay DO Dec 07, 2018 09:03
[2018-12-07] MEDS ORDERED: NaCl 3% 500ml 500 ML IV ONE ×2 (09:45→11:00)
--- NOTE | 2018-12-07 09:51 | Cardiac Electrophysiology PN ---
Assessment/Plan Assessment/Plan 1. Accelerated hypertension. Add Coreg 25 bid, change Hydralazine to 50 bid and Isordil to 20 bid Added p.r.n. clonidine 2. Exacerbation of CHF with EF 35%. Never had cardiac cath to R/O CAD but too risky now in view of creatinine 2.7 On Coreg, Hydralazine and isordil. Lasix dosing per Dr Marlow. Will consider ICD if compliant 3. Renal failure. Creatinine of 2.7. Keep Off ACEI and ARB 4. Diabetes 5. Hx of Severe thrombocytopenia in 07/2017, resolved 6. Severe hyponatremia, Likely due to HCTZ and dilutional for CHF. On 3% Saline and Lasix per Dr Ele BIRD RN and Dr Marlow Subjective Subjective Had Mendez with no residual but removed at patients request. Pulled out his IV and replaced. Took off his nasal cannula Objective Last 24 Hour Vital Signs Date Time Temp Pulse Resp B/P (MAP) Pulse Ox O2 Delivery O2 Flow Rate FiO2 12/07/18 09:00 168/83 12/07/18 08:00 83 12/07/18 08:00 97.5 85 20 168/83 (111) 93 12/07/18 08:00 3.0 12/07/18 08:00 Nasal Cannula 3.0 Nasal Cannula 3.0 12/07/18 06:11 141/61 12/07/18 04:46 151/95 12/07/18 04:00 3.0 12/07/18 04:00 98.9 74 22 151/95 (113) 95 12/07/18 03:35 81 12/07/18 03:00 Nasal Cannula 3.0 Nasal Cannula 3.0 12/07/18 00:00 97.9 85 20 113/80 (91) 96 12/06/18 23:48 113/80 12/06/18 21:33 146/86 12/06/18 21:09 76 20 97 Nasal Cannula 3.0 32 12/06/18 21:00 Nasal Cannula 3.0 Nasal Cannula 3.0 12/06/18 20:59 75 20 94 Nasal Cannula 3.0 32 12/06/18 20:39 78 12/06/18 20:00 3.0 12/06/18 20:00 98.4 79 18 141/74 (96) 96 12/06/18 19:23 95 Nasal Cannula 3.0 32 12/06/18 19:23 73 20 95 Nasal Cannula 3.0 32 12/06/18 17:55 120/78 12/06/18 16:44 136/79 12/06/18 16:00 98.2 74 18 136/79 (98) 97 12/06/18 16:00 Nasal Cannula 3.0 Nasal Cannula 3.0 12/06/18 16:00 3.0 12/06/18 15:38 82 12/06/18 12:35 131/85 12/06/18 12:00 63 12/06/18 12:00 Nasal Cannula 3.0 Nasal Cannula 3.0 12/06/18 12:00 3.0 12/06/18 12:00 98.2 63 20 131/85 (100) 93 12/06/18 10:19 127/71 12/06/18 09:52 94 Nasal Cannula 3.0 32 12/06/18 09:51 64 24 94 Nasal Cannula 3.0 32 Intake and Output 12/06/18 12/07/18 19:00 07:00 Intake Total 560 ml 243 ml Output Total 650 ml 750 ml Balance -90 ml -507 ml Intake Oral 320 ml 240 ml IV Total 240 ml 3 ml Output Urine Total 650 ml 750 ml # Voids 1 Laboratory Tests Test 12/06/18 09:50 12/06/18 12:05 12/07/18 03:10 Urine Color Yellow Urine Appearance Clear Urine pH 6 (4.5-8.0) Urine Specific [place] 1.010 (1.005-1.035) Urine Protein 3+ (NEGATIVE) H Urine Glucose (UA) Negative (NEGATIVE) Urine Ketones Negative (NEGATIVE) Urine Blood 3+ (NEGATIVE) H Urine Nitrite Negative (NEGATIVE) Urine Bilirubin Negative (NEGATIVE) Urine Urobilinogen Normal MG/DL (0.0-1.0) Urine Leukocyte Esterase 1+ (NEGATIVE) H Urine RBC 5-10 /HPF (0 - 0) H Urine WBC 5-10 /HPF (0 - 0) H Urine Squamous Epithelial Cells Few /LPF (NONE/OCC) Urine Bacteria Occasional /HPF (NONE) Urine Osmolality 279 mOsm/kg (429-449) L Urine Opiates Screen Negative (NEGATIVE) Urine Barbiturates Screen Negative (NEGATIVE) Phencyclidine (PCP) Screen Negative (NEGATIVE) Urine Amphetamines Screen Negative (NEGATIVE) Urine Benzodiazepines Screen Negative (NEGATIVE) Urine Cocaine Screen Negative (NEGATIVE) Urine Marijuana (THC) Screen Negative (NEGATIVE) Sodium Level 118 MMOL/L (136-145) *L 124 MMOL/L (136-145) L Potassium Level 4.9 MMOL/L (3.5-5.1) 4.1 MMOL/L (3.5-5.1) Chloride Level 88 MMOL/L (98-107) L 92 MMOL/L (98-107) L Carbon Dioxide Level 24 MMOL/L (21-32) 24 MMOL/L (21-32) Anion Gap 7 mmol/L (5-15) 8 mmol/L (5-15) Blood Urea Nitrogen 29 mg/dL (7-18) H 35 mg/dL (7-18) H Creatinine 2.5 MG/DL (0.55-1.30) H 2.7 MG/DL (0.55-1.30) H Estimat Glomerular Filtration Rate 33.1 mL/min (>60) 30.2 mL/min (>60) Glucose Level 98 MG/DL (74-106) 118 MG/DL (74-106) H Uric Acid 5.7 MG/DL (2.6-7.2) Calcium Level 8.0 MG/DL (8.5-10.1) L 8.0 MG/DL (8.5-10.1) L Total Creatine Kinase 331 U/L (26-308) H Troponin I 0.050 ng/mL (0.000-0.056) White Blood Count 7.5 K/UL (4.8-10.8) Red Blood Count 3.33 M/UL (4.70-6.10) L Hemoglobin 9.5 G/DL (14.2-18.0) L Hematocrit 28.0 % (42.0-52.0) L Mean Corpuscular Volume 84 FL (80-99) Mean Corpuscular Hemoglobin 28.6 PG (27.0-31.0) Mean Corpuscular Hemoglobin Concent 34.0 G/DL (32.0-36.0) Red Cell Distribution Width 11.6 % (11.6-14.8) Platelet Count 225 K/UL (150-450) Mean Platelet Volume 5.9 FL (6.5-10.1) L Neutrophils (%) (Auto) 72.3 % (45.0-75.0) Lymphocytes (%) (Auto) 11.6 % (20.0-45.0) L Monocytes (%) (Auto) 11.9 % (1.0-10.0) H Eosinophils (%) (Auto) 3.0 % (0.0-3.0) Basophils (%) (Auto) 1.2 % (0.0-2.0) Neutrophils % (Manual) Pending Lymphocytes % (Manual) Pending Platelet Estimate Pending Platelet Morphology Pending Erythrocyte Sedimentation Rate 64 MM/HR (0-20) H Reticulocyte Count Pending Prothrombin Time 11.5 SEC (9.30-11.50) Prothromb Time International Ratio 1.1 (0.9-1.1) Activated Partial Thromboplast Time 31 SEC (23-33) Phosphorus Level 4.6 MG/DL (2.5-4.9) Magnesium Level 1.8 MG/DL (1.8-2.4) Iron Level 25 ug/dL (50-175) L Total Iron Binding Capacity 275 ug/dL (250-450) Percent Iron Saturation 9 % (15-50) L Unsaturated Iron Binding 250 ug/dL (112-346) Ferritin 202 NG/ML (8-388) Total Bilirubin 0.4 MG/DL (0.2-1.0) Aspartate Amino Transf (AST/SGOT) 36 U/L (15-37) Alanine Aminotransferase (ALT/SGPT) 24 U/L (12-78) Alkaline Phosphatase 70 U/L (46-116) Ammonia 29 umol/L (11-32) Lactate Dehydrogenase 210 U/L (81-234) C-Reactive Protein, Quantitative 1.2 mg/dL (0.00-0.90) H Pro-B-Type Natriuretic Peptide 13323 pg/mL (0-125) H Total Protein 6.8 G/DL (6.4-8.2) Albumin 2.5 G/DL (3.4-5.0) L Globulin 4.3 g/dL Albumin/Globulin Ratio 0.6 (1.0-2.7) L Carcinoembryonic Antigen Pending Vitamin B12 Level 506 PG/ML (193-986) Folate 7.5 NG/ML (8.6-58.9) L Free Thyroxine 1.10 NG/DL (0.76-1.46) Free Triiodothyronine 1.4 pg/mL (2.3-4.2) L Objective HEAD AND NECK: Mild JVD. LUNGS: Clear. CARDIOVASCULAR: Regular S1 and S2 with no gallop or murmur. ABDOMEN: Soft. EXTREMITIES: One plus pitting edema. Shreyas Palacio MD Dec 07, 2018 09:51
[2018-12-07] MEDS ORDERED: HydrALAZINE 10mg Tab ORAL SCH (10:00)
[2018-12-07] MEDS ORDERED: Iron Sucrose 200 MG in NS 110 ML IV ONE (11:00)
--- NOTE | 2018-12-07 11:28 | Nephrology Progress Note ---
Assessment/Plan Problem List: (1) Hyponatremia (2) Diabetic nephropathy (3) Congestive heart failure (CHF) (4) Hypertensive heart disease (5) Pulmonary edema (6) Anemia Assessment AMY Cardiomyopathy HypoNatremia DM, Nephropathy HTN h/o DVT Plan Mendez, refused, came out 3% saline and Diuresis RITU kidney 2D echo monitor Na meplm-Gqfanzi-Hwvxcqi Subjective ROS Limited/Unobtainable: No Constitutional: Reports: malaise, weakness Objective Objective Last 24 Hour Vital Signs Date Time Temp Pulse Resp B/P (MAP) Pulse Ox O2 Delivery O2 Flow Rate FiO2 12/07/18 09:00 168/83 12/07/18 08:00 83 12/07/18 08:00 97.5 85 20 168/83 (111) 93 12/07/18 08:00 3.0 12/07/18 08:00 Nasal Cannula 3.0 Nasal Cannula 3.0 12/07/18 06:11 141/61 12/07/18 04:46 151/95 12/07/18 04:00 3.0 12/07/18 04:00 98.9 74 22 151/95 (113) 95 12/07/18 03:35 81 12/07/18 03:00 Nasal Cannula 3.0 Nasal Cannula 3.0 12/07/18 00:00 97.9 85 20 113/80 (91) 96 12/06/18 23:48 113/80 12/06/18 21:33 146/86 12/06/18 21:09 76 20 97 Nasal Cannula 3.0 32 12/06/18 21:00 Nasal Cannula 3.0 Nasal Cannula 3.0 12/06/18 20:59 75 20 94 Nasal Cannula 3.0 32 12/06/18 20:39 78 12/06/18 20:00 3.0 12/06/18 20:00 98.4 79 18 141/74 (96) 96 12/06/18 19:23 95 Nasal Cannula 3.0 32 12/06/18 19:23 73 20 95 Nasal Cannula 3.0 32 12/06/18 17:55 120/78 12/06/18 16:44 136/79 12/06/18 16:00 98.2 74 18 136/79 (98) 97 12/06/18 16:00 Nasal Cannula 3.0 Nasal Cannula 3.0 12/06/18 16:00 3.0 12/06/18 15:38 82 12/06/18 12:35 131/85 12/06/18 12:00 63 12/06/18 12:00 Nasal Cannula 3.0 Nasal Cannula 3.0 12/06/18 12:00 3.0 12/06/18 12:00 98.2 63 20 131/85 (100) 93 Intake and Output 12/06/18 12/07/18 19:00 07:00 Intake Total 560 ml 243 ml Output Total 650 ml 750 ml Balance -90 ml -507 ml Intake Oral 320 ml 240 ml IV Total 240 ml 3 ml Output Urine Total 650 ml 750 ml # Voids 1 Laboratory Tests 12/06/18 12:05: Sodium Level 118*L, Potassium Level 4.9, Chloride Level 88L, Carbon Dioxide Level 24, Anion Gap 7, Blood Urea Nitrogen 29H, Creatinine 2.5H, Estimat Glomerular Filtration Rate 33.1, Glucose Level 98, Uric Acid 5.7, Calcium Level 8.0L, Total Creatine Kinase 331H, Troponin I 0.050 12/07/18 03:10: Sodium Level 124L, Potassium Level 4.1, Chloride Level 92L, Carbon Dioxide Level 24, Anion Gap 8, Blood Urea Nitrogen 35H, Creatinine 2.7H, Estimat Glomerular Filtration Rate 30.2, Glucose Level 118H, Calcium Level 8.0L, White Blood Count 7.5, Red Blood Count 3.33L, Hemoglobin 9.5L, Hematocrit 28.0L, Mean Corpuscular Volume 84, Mean Corpuscular Hemoglobin 28.6, Mean Corpuscular Hemoglobin Concent 34.0, Red Cell Distribution Width 11.6, Platelet Count 225, Mean Platelet Volume 5.9L, Neutrophils (%) (Auto) 72.3, Lymphocytes (%) (Auto) 11.6L, Monocytes (%) (Auto) 11.9H, Eosinophils (%) (Auto) 3.0, Basophils (%) ( Auto) 1.2, Differential Total Cells Counted 100, Neutrophils % (Manual) 73, Lymphocytes % (Manual) 17L, Monocytes % (Manual) 9, Eosinophils % (Manual) 1, Basophils % (Manual) 0, Band Neutrophils 0, Platelet Estimate Adequate, Platelet Morphology Normal, Hypochromasia 1+, Erythrocyte Sedimentation Rate 64H , Reticulocyte Count [Pending], Prothrombin Time 11.5, Prothromb Time International Ratio 1.1, Activated Partial Thromboplast Time 31, Phosphorus Level 4.6, Magnesium Level 1.8, Iron Level 25L, Total Iron Binding Capacity 275 , Percent Iron Saturation 9L, Unsaturated Iron Binding 250, Ferritin 202, Total Bilirubin 0.4, Aspartate Amino Transf (AST/SGOT) 36, Alanine Aminotransferase ( ALT/SGPT) 24, Alkaline Phosphatase 70, Ammonia 29, Lactate Dehydrogenase 210, C- Reactive Protein, Quantitative 1.2H, Pro-B-Type Natriuretic Peptide 12358M, Total Protein 6.8, Albumin 2.5L, Globulin 4.3, Albumin/Globulin Ratio 0.6L, Carcinoembryonic Antigen [Pending], Vitamin B12 Level 506, Folate 7.5L, Free Thyroxine 1.10, Free Triiodothyronine 1.4L Height (Feet): 5 Height (Inches): 8.00 Weight (Pounds): 189 General Appearance: no apparent distress, lethargic Cardiovascular: tachycardia Respiratory/Chest: decreased breath sounds, other - breathing easier Abdomen: distended Madan Marlow MD Dec 07, 2018 11:28
--- NOTE | 2018-12-07 11:54 | Consultation ---
DATE OF CONSULTATION: 12/06/2018 CARDIOLOGY CONSULTATION CONSULTING PHYSICIAN: Shreyas Palacio M.D. REFERRING PHYSICIAN: Can Hay D.O. REASON FOR CONSULTATION: Management of congestive heart failure. HISTORY OF PRESENT ILLNESS: The patient is a 53-year-old gentleman with history of severe cardiomyopathy, ejection fraction of 35% based on echocardiogram in July of 2017 at [facility]. The patient has history of hypertension, diabetes, and ran out of the medication for the last three days, increasing shortness of breath, and came to the emergency for further evaluation. The patient also noted increased swelling in the legs. The patient had an EKG which showed sinus rhythm and incomplete right bundle-branch block as well as left anterior fascicular block and T-wave abnormalities with lateral ischemia. At the time of my evaluation, the patient denies any chest pain but he is short of breath. REVIEW OF SYSTEMS: Review of systems was negative other than what was mentioned in history of present illness. PAST MEDICAL HISTORY: As mentioned above. FAMILY HISTORY: Noncontributory. SOCIAL HISTORY: Denies smoking, drinking alcohol, or using any drugs. PHYSICAL EXAMINATION: VITAL SIGNS: Show blood pressure of 127/71, pulse 64, respirations 18, and he is afebrile. HEAD AND NECK: Shows no JVD or carotid bruits. LUNGS: Decreased breath sounds. CARDIOVASCULAR: Regular S1 and S2 with no gallop. ABDOMEN: Soft. EXTREMITIES: A 2+ pitting edema. LABORATORY AND DIAGNOSTIC DATA: His EKG from December 05, 2018 at 12:31 showed normal sinus rhythm with possible anterior infarct. His EKG on December 06, 2018 at 4:10 showed low atrial rhythm with right bundle-branch block and left anterior fascicular block. His labs show white count 6.7, hemoglobin 11.5, hematocrit 32.5, and platelet count 235,000. Sodium is 120, potassium is 5.8, BUN of 27, creatinine 2.5, and glucose of 93. His troponin are 0.036 [place] 0[place] [address]. ASSESSMENT AND PLAN: 1. Exacerbation of congestive heart failure in a patient with ejection fraction of 30%. We will repeat an echocardiogram to evaluate for ejection fraction and wall motion abnormality again. I will put him on Lasix 80 mg IV b.i.d. in view of his severe cardiomyopathy. Further dosing of subsequently changed to Lasix 20 mg IV q. [address] Marlow. Hydrochlorothiazide was discontinued as well. Also put him on hydralazine 10 mg every 6 hours as well as Imdur. 2. Intermittent with right bundle-branch block and left anterior fascicular block. This is quite surprising that within 5 hours EKG would change that significantly. We will repeat EKG for further evaluation. In the meantime, continue the patient on current medical regimen. 3. Severe hyponatremia. Hydrochlorothiazide was discontinued. 4. Acute renal failure. Further evaluation by Dr. Marlow. 5. Hyperkalemia due to renal failure. It is of note the patient's repeat echocardiogram showed ejection fraction of around 30% to 35%. Thank you very much, Dr. Hay, for allowing me to participate in the care of this patient. Please do not hesitate to contact me for any questions regarding my evaluation. Sincerely, Shreyas Palacio M.D. DR: Suzan JOB#: [id number] CC:
--- NOTE | 2018-12-07 11:55 | History and Physical Report ---
DATE OF ADMISSION: 12/05/2018 DATE AND TIME SEEN: 12/06/2018 at 3 p.m. CONSULTANTS: 1. Shreyas Palacio M.D. 2. Madan Marlow M.D. 3. Giovani Carranza M.D. CHIEF COMPLAINT: Shortness of breath, CHF, renal failure. BRIEF HISTORY: This is a 53-year-old male, who lives at home with history of CHF and renal failure, presents with three-day increased shortness of breath. No chest pain. No nausea, vomiting, or diarrhea. The patient came to [place], diagnosed with the above, admitted to [facility] for further care. Currently, O2 NC, slight short of breath, sleepy in bed, not talking much. REVIEW OF SYSTEMS: Unavailable. PAST MEDICAL HISTORY: CHF and renal failure. PAST SURGICAL HISTORY: None. MEDICATIONS: Include furosemide, hydralazine, docusate sodium, isosorbide, metformin, , potassium, and albuterol. ALLERGIES: [place]. SOCIAL HISTORY: Positive smoke. Occasional alcohol. No intravenous drug use. FAMILY HISTORY: Noncontributory. PHYSICAL EXAMINATION: GENERAL: Calm in bed, sleepy, oriented x2, in no acute distress. VITAL SIGNS: Temperature 98 degrees, pulse 63, respirations 20, blood pressure 131/85. CARDIOVASCULAR: No murmur. LUNGS: Poor air exchange. ABDOMEN: Bowel sounds distant. EXTREMITIES: Show no cyanosis, clubbing, or edema. NEUROLOGIC: The patient moves all extremities, slightly weak. LABORATORY AND DIAGNOSTIC DATA: Labs at this time show hemoglobin 11.1, otherwise CBC is normal. BMP shows sodium 118, chloride 88, BUN and creatinine 29 and 2.5. Calcium 8.0. Troponin 0.050. CK 331. BNP is 11,967. INR is 1.0. Urinalysis show 1+ leukocyte esterase. Urine tox is negative. ASSESSMENT: 1. Shortness of breath. 2. CHF. 3. Renal failure. 4. UTI. 5. Hyponatremia. 6. Anemia. PLAN: 1. O2 and pulmonary treatment. 2. Antibiotics per Infectious Disease. 3. Diuresis, PT and dietary evaluation. 4. CBC and BMP in the morning. 5. Nephrology followup. Can Hay D.O. DR: PILY JOB#: [id number] CC:
[2018-12-07 12:00] VITALS: BP 160/80
[2018-12-07] MEDS ORDERED: Iron Sucrose 200 MG in NS 110 ML IV SCH (12:00)
--- NOTE | 2018-12-07 13:14 | Pulmonology Progress Note ---
Assessment/Plan Problems: (1) Pulmonary edema (2) Hyponatremia (3) Congestive heart failure (CHF) (4) Hypertensive heart disease (5) Diabetes mellitus (6) Diabetic nephropathy Assessment/Plan bun/creatinine rising cxr from this morning unchanged, BNP still elevated probably needs higher dose of Lasix sliding scale f/u electrolytes Subjective Interval Events: feeling better than yesterday Allergies: Coded Allergies: LITHIUM (Verified Allergy, Unknown, 07/23/13) Objective Last 24 Hour Vital Signs Date Time Temp Pulse Resp B/P (MAP) Pulse Ox O2 Delivery O2 Flow Rate FiO2 12/07/18 12:00 97.9 76 18 160/80 (106) 96 12/07/18 12:00 72 12/07/18 12:00 3.0 12/07/18 12:00 Nasal Cannula 3.0 Nasal Cannula 3.0 12/07/18 09:00 168/83 12/07/18 08:00 83 12/07/18 08:00 97.5 85 20 168/83 (111) 93 12/07/18 08:00 3.0 12/07/18 08:00 Nasal Cannula 3.0 Nasal Cannula 3.0 12/07/18 06:11 141/61 12/07/18 04:46 151/95 12/07/18 04:00 3.0 12/07/18 04:00 98.9 74 22 151/95 (113) 95 12/07/18 03:35 81 12/07/18 03:00 Nasal Cannula 3.0 Nasal Cannula 3.0 12/07/18 00:00 97.9 85 20 113/80 (91) 96 12/06/18 23:48 113/80 12/06/18 21:33 146/86 12/06/18 21:09 76 20 97 Nasal Cannula 3.0 32 12/06/18 21:00 Nasal Cannula 3.0 Nasal Cannula 3.0 12/06/18 20:59 75 20 94 Nasal Cannula 3.0 32 12/06/18 20:39 78 12/06/18 20:00 3.0 12/06/18 20:00 98.4 79 18 141/74 (96) 96 12/06/18 19:23 95 Nasal Cannula 3.0 32 12/06/18 19:23 73 20 95 Nasal Cannula 3.0 32 12/06/18 17:55 120/78 12/06/18 16:44 136/79 12/06/18 16:00 98.2 74 18 136/79 (98) 97 12/06/18 16:00 Nasal Cannula 3.0 Nasal Cannula 3.0 12/06/18 16:00 3.0 12/06/18 15:38 82 Intake and Output 12/06/18 12/07/18 19:00 07:00 Intake Total 560 ml 243 ml Output Total 650 ml 750 ml Balance -90 ml -507 ml Intake Oral 320 ml 240 ml IV Total 240 ml 3 ml Output Urine Total 650 ml 750 ml # Voids 1 General Appearance: WD/WN HEENT: normocephalic, atraumatic Respiratory/Chest: chest wall non-tender, lungs clear Cardiovascular: normal peripheral pulses, regular rhythm Genitourinary: normal external genitalia Skin: no ulcers Lymphatic: no groin adenopathy Laboratory Tests 12/07/18 03:10: White Blood Count 7.5, Red Blood Count 3.33L, Hemoglobin 9.5L, Hematocrit 28.0L , Mean Corpuscular Volume 84, Mean Corpuscular Hemoglobin 28.6, Mean Corpuscular Hemoglobin Concent 34.0, Red Cell Distribution Width 11.6, Platelet Count 225, Mean Platelet Volume 5.9L, Neutrophils (%) (Auto) 72.3, Lymphocytes ( %) (Auto) 11.6L, Monocytes (%) (Auto) 11.9H, Eosinophils (%) (Auto) 3.0, Basophils (%) (Auto) 1.2, Differential Total Cells Counted 100, Neutrophils % ( Manual) 73, Lymphocytes % (Manual) 17L, Monocytes % (Manual) 9, Eosinophils % ( Manual) 1, Basophils % (Manual) 0, Band Neutrophils 0, Other Cell Type Pathologist review, Platelet Estimate Adequate, Platelet Morphology Normal, Hypochromasia 1+, Erythrocyte Sedimentation Rate 64H, Reticulocyte Count 1.6, Prothrombin Time 11.5, Prothromb Time International Ratio 1.1, Activated Partial Thromboplast Time 31, Sodium Level 124L, Potassium Level 4.1, Chloride Level 92L, Carbon Dioxide Level 24, Anion Gap 8, Blood Urea Nitrogen 35H, Creatinine 2.7H, Estimat Glomerular Filtration Rate 30.2, Glucose Level 118H, Calcium Level 8.0L, Phosphorus Level 4.6, Magnesium Level 1.8, Iron Level 25L, Total Iron Binding Capacity 275, Percent Iron Saturation 9L, Unsaturated Iron Binding 250, Ferritin 202, Total Bilirubin 0.4, Aspartate Amino Transf (AST/SGOT ) 36, Alanine Aminotransferase (ALT/SGPT) 24, Alkaline Phosphatase 70, Ammonia 29, Lactate Dehydrogenase 210, C-Reactive Protein, Quantitative 1.2H, Pro-B- Type Natriuretic Peptide 30389S, Total Protein 6.8, Albumin 2.5L, Globulin 4.3, Albumin/Globulin Ratio 0.6L, Carcinoembryonic Antigen [Pending], Vitamin B12 Level 506, Folate 7.5L, Free Thyroxine 1.10, Free Triiodothyronine 1.4L Current Medications Medications (Trade) Dose Ordered Sig/Manuelito Route PRN Reason Start Time Stop Time Status Last Admin Dose Admin Albuterol/ Ipratropium (Albuterol/ Ipratropium) 3 ml Q4H PRN HHN Shortness of Breath 12/06/18 10:45 12/11/18 10:44 12/06/18 20:59 Carvedilol (Coreg) 25 mg EVERY 12 HOURS ORAL 12/07/18 21:00 01/06/19 20:59 Clonidine HCl (Catapres Tab) 0.1 mg Q4H PRN ORAL bp over 165 syst 12/07/18 09:45 01/06/19 09:44 Docusate Sodium (Colace) 100 mg THREE TIMES A DAY ORAL 12/06/18 13:00 01/05/19 12:59 12/07/18 12:10 Folic Acid (Folate) 3 mg DAILY ORAL 12/07/18 09:45 01/06/19 09:44 12/07/18 10:15 Furosemide (Lasix) 20 mg Q8H IV 12/06/18 17:00 01/05/19 16:59 12/07/18 08:04 Heparin Sodium (Porcine) (Heparin 5000 units/ml) 5,000 units EVERY 12 HOURS SUBQ 12/07/18 09:00 01/06/19 08:59 12/07/18 08:58 Hydralazine HCl (Apresoline) 50 mg TWICE A DAY ORAL 12/07/18 18:00 01/06/19 17:59 Isosorbide Dinitrate (Isordil) 20 mg BID ORAL 12/07/18 18:00 01/06/19 17:59 Liothyronine Sodium (Cytomel) 5 mcg DAILY ORAL 12/08/18 09:00 01/07/19 08:59 Lorazepam (Ativan 2mg/ml 1ml) 1 mg Q4H PRN IV For Anxiety 12/06/18 00:15 12/13/18 00:14 Morphine Sulfate (Morphine Sulfate) 2 mg Q4H PRN IVP PAIN 4-10 12/05/18 18:30 12/12/18 18:29 Pantoprazole (Protonix) 40 mg EVERY 12 HOURS ORAL 12/06/18 10:00 01/05/19 09:59 12/07/18 08:04 Sodium Chloride 500 ml @ 30 mls/hr ONCE ONCE IV 12/07/18 11:00 12/08/18 03:39 12/07/18 10:59 Tamsulosin HCl (Flomax) 0.4 mg BEDTIME ORAL 12/07/18 21:00 01/06/19 20:59 Giovani Carranza MD Dec 07, 2018 13:14
--- NOTE | 2018-12-07 14:10 | NUR ---
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 98.3 HR 64 RR 20 B/P 144/69 NA 125 K 3.4 CR 1.7 ALT 44 TROP 0.039 BNP 78435 ESR 64 IS: ASA PO LASIX IV K-DUR PO ADMITTED TO TELE @ 5204 TELE STATUS DCP RETURN HOME
--- NOTE | 2018-12-07 14:13 | NUR ---
*-* DISCHARGE PLANNING *-* PATIENT HAS BEEN REFERRED TO: [facility] P: [phone] F: [phone]
--- NOTE | 2018-12-07 14:49 | NUR ---
*-* INSURANCE *-* ALL AVAILABLE CLINICALS HAVE BEEN FAXED TO: [facility] NO CM ASSIGNED PH#[phone] FAX#[phone] REVIEWS/CLINICALS & [facility] NO CM YET PH#[phone] FAX#[phone] REVIEWS/CLINCALS
[2018-12-07 16:00] VITALS: BP 132/77
[2018-12-07] MEDS ORDERED: HydrALAZINE 25mg tab ORAL SCH (16:00)
[2018-12-07] MEDS: HydrALAZINE 50mg tab ORAL SCH (17:29)
--- NOTE | 2018-12-07 19:30 | NUR ---
NURSE NOTES: Given report from MAYCOL Brar. Pt is resting on the bed and no sign of acute distress noted. IV site intact and no sign of infiltration note. On running with 3% NaCl @ 30cc/hr. Denied Pain at this time. Pt is voiding well. On O2 3L via nasal cannula and SaO2 97% noted. Placed fall precaution. Will continue to care plan.
--- NOTE | 2018-12-07 19:30 | NUR ---
HAND-OFF: Report given to MAYCOL Ibrahim. Pt in stable condition.
--- NOTE | 2018-12-07 19:39 | Consultation ---
History of Present Illness General Date patient seen: Dec 07, 2018 Chief Complaint: Dyspnea/Respdistress Present Illness HPI 53 y/o M with hx of severe cardiomyopathy EF 35%, tobacco abuse, HTN, Dm2, DVT, CVA, non compliance presented to ED on 12/06 with 3 days of worsening SOB and BLE swelling. Was found to have hyponatremia, CHF exacerbation Denied chest pain, syncope, hemoptysis, n/v/d Allergies: Coded Allergies: LITHIUM (Verified Allergy, Unknown, 07/23/13) Medication History Scheduled Amlodipine Besylate* (Amlodipine Besylate*), 2.5 MG ORAL DAILY, (Reported) Hydrochlorothiazide* (Hydrochlorothiazide*), 12.5 MG ORAL DAILY, (Reported) Metformin Hcl (Metformin Hcl Er), 500 MG ORAL BID, (Reported) Metformin Hcl* (Metformin Hcl*), 500 MG ORAL TWICE A DAY, (Reported) Miscellaneous Medications [hctz], (Reported) [metformin], (Reported) [metformin], (Reported) Patient History Healthcare decision maker Resuscitation status Full Code Advanced Directive on File Patient History Narrative Pmhx: as above Shx: Positive smoke. Occasional alcohol. No intravenous drug use. Fhx: non contributory Physical Exam Physical Exam Narrative GENERAL: Calm in bed, sleepy, oriented x2, in no acute distress. CARDIOVASCULAR: No murmur. LUNGS: Poor air exchange. ABDOMEN: Bowel sounds distant. EXTREMITIES: Show no cyanosis, clubbing, or edema. NEUROLOGIC: The patient moves all extremities, slightly weak. Last 24 Hour Vital Signs Date Time Temp Pulse Resp B/P (MAP) Pulse Ox O2 Delivery O2 Flow Rate FiO2 12/07/18 17:29 132/77 12/07/18 17:29 132/77 12/07/18 16:00 3.0 12/07/18 16:00 71 12/07/18 16:00 97.8 71 16 132/77 (95) 96 12/07/18 12:00 97.9 76 18 160/80 (106) 96 12/07/18 12:00 72 12/07/18 12:00 3.0 12/07/18 12:00 Nasal Cannula 3.0 Nasal Cannula 3.0 12/07/18 09:00 168/83 12/07/18 08:00 83 12/07/18 08:00 97.5 85 20 168/83 (111) 93 12/07/18 08:00 3.0 12/07/18 08:00 Nasal Cannula 3.0 Nasal Cannula 3.0 12/07/18 07:59 77 18 96 Nasal Cannula 3.0 32 12/07/18 07:52 96 Nasal Cannula 3.0 32 12/07/18 06:11 141/61 12/07/18 04:46 151/95 12/07/18 04:00 3.0 12/07/18 04:00 98.9 74 22 151/95 (113) 95 12/07/18 03:35 81 12/07/18 03:00 Nasal Cannula 3.0 Nasal Cannula 3.0 12/07/18 00:00 97.9 85 20 113/80 (91) 96 12/06/18 23:48 113/80 12/06/18 21:33 146/86 12/06/18 21:09 76 20 97 Nasal Cannula 3.0 32 12/06/18 21:00 Nasal Cannula 3.0 Nasal Cannula 3.0 12/06/18 20:59 75 20 94 Nasal Cannula 3.0 32 12/06/18 20:39 78 12/06/18 20:00 3.0 12/06/18 20:00 98.4 79 18 141/74 (96) 96 Intake and Output 12/06/18 12/07/18 18:59 06:59 Intake Total 560 ml 243 ml Output Total 650 ml 750 ml Balance -90 ml -507 ml Intake Oral 320 ml 240 ml IV Total 240 ml 3 ml Output Urine Total 650 ml 750 ml # Voids 1 Laboratory Tests Test 12/07/18 03:10 White Blood Count 7.5 K/UL (4.8-10.8) Red Blood Count 3.33 M/UL (4.70-6.10) L Hemoglobin 9.5 G/DL (14.2-18.0) L Hematocrit 28.0 % (42.0-52.0) L Mean Corpuscular Volume 84 FL (80-99) Mean Corpuscular Hemoglobin 28.6 PG (27.0-31.0) Mean Corpuscular Hemoglobin Concent 34.0 G/DL (32.0-36.0) Red Cell Distribution Width 11.6 % (11.6-14.8) Platelet Count 225 K/UL (150-450) Mean Platelet Volume 5.9 FL (6.5-10.1) L Neutrophils (%) (Auto) 72.3 % (45.0-75.0) Lymphocytes (%) (Auto) 11.6 % (20.0-45.0) L Monocytes (%) (Auto) 11.9 % (1.0-10.0) H Eosinophils (%) (Auto) 3.0 % (0.0-3.0) Basophils (%) (Auto) 1.2 % (0.0-2.0) Differential Total Cells Counted 100 Neutrophils % (Manual) 73 % (45-75) Lymphocytes % (Manual) 17 % (20-45) L Monocytes % (Manual) 9 % (1-10) Eosinophils % (Manual) 1 % (0-3) Basophils % (Manual) 0 % (0-2) Band Neutrophils 0 % (0-8) Other Cell Type Pathologist review Platelet Estimate Adequate Platelet Morphology Normal Hypochromasia 1+ Erythrocyte Sedimentation Rate 64 MM/HR (0-20) H Reticulocyte Count 1.6 % (0.5-2.0) Prothrombin Time 11.5 SEC (9.30-11.50) Prothromb Time International Ratio 1.1 (0.9-1.1) Activated Partial Thromboplast Time 31 SEC (23-33) Sodium Level 124 MMOL/L (136-145) L Potassium Level 4.1 MMOL/L (3.5-5.1) Chloride Level 92 MMOL/L (98-107) L Carbon Dioxide Level 24 MMOL/L (21-32) Anion Gap 8 mmol/L (5-15) Blood Urea Nitrogen 35 mg/dL (7-18) H Creatinine 2.7 MG/DL (0.55-1.30) H Estimat Glomerular Filtration Rate 30.2 mL/min (>60) Glucose Level 118 MG/DL (74-106) H Calcium Level 8.0 MG/DL (8.5-10.1) L Phosphorus Level 4.6 MG/DL (2.5-4.9) Magnesium Level 1.8 MG/DL (1.8-2.4) Iron Level 25 ug/dL (50-175) L Total Iron Binding Capacity 275 ug/dL (250-450) Percent Iron Saturation 9 % (15-50) L Unsaturated Iron Binding 250 ug/dL (112-346) Ferritin 202 NG/ML (8-388) Total Bilirubin 0.4 MG/DL (0.2-1.0) Aspartate Amino Transf (AST/SGOT) 36 U/L (15-37) Alanine Aminotransferase (ALT/SGPT) 24 U/L (12-78) Alkaline Phosphatase 70 U/L (46-116) Ammonia 29 umol/L (11-32) Lactate Dehydrogenase 210 U/L (81-234) C-Reactive Protein, Quantitative 1.2 mg/dL (0.00-0.90) H Pro-B-Type Natriuretic Peptide 56258 pg/mL (0-125) H Total Protein 6.8 G/DL (6.4-8.2) Albumin 2.5 G/DL (3.4-5.0) L Globulin 4.3 g/dL Albumin/Globulin Ratio 0.6 (1.0-2.7) L Carcinoembryonic Antigen Pending Vitamin B12 Level 506 PG/ML (193-986) Folate 7.5 NG/ML (8.6-58.9) L Free Thyroxine 1.10 NG/DL (0.76-1.46) Free Triiodothyronine 1.4 pg/mL (2.3-4.2) L Height (Feet): 5 Height (Inches): 8.00 Weight (Pounds): 189 Medications Current Medications Medications (Trade) Dose Ordered Sig/Manuelito Route PRN Reason Start Time Stop Time Status Last Admin Dose Admin Albuterol/ Ipratropium (Albuterol/ Ipratropium) 3 ml Q4H PRN HHN Shortness of Breath 12/06/18 10:45 12/11/18 10:44 12/06/18 20:59 Carvedilol (Coreg) 25 mg EVERY 12 HOURS ORAL 12/07/18 21:00 01/06/19 20:59 Clonidine HCl (Catapres Tab) 0.1 mg Q4H PRN ORAL bp over 165 syst 12/07/18 09:45 01/06/19 09:44 Docusate Sodium (Colace) 100 mg THREE TIMES A DAY ORAL 12/06/18 13:00 01/05/19 12:59 12/07/18 17:29 Folic Acid (Folate) 3 mg DAILY ORAL 12/07/18 09:45 01/06/19 09:44 12/07/18 10:15 Furosemide (Lasix) 20 mg Q8H IV 12/06/18 17:00 01/05/19 16:59 12/07/18 17:28 Heparin Sodium (Porcine) (Heparin 5000 units/ml) 5,000 units EVERY 12 HOURS SUBQ 12/07/18 09:00 01/06/19 08:59 12/07/18 08:58 Hydralazine HCl (Apresoline) 50 mg TWICE A DAY ORAL 12/07/18 18:00 01/06/19 17:59 12/07/18 17:29 Isosorbide Dinitrate (Isordil) 20 mg BID ORAL 12/07/18 18:00 01/06/19 17:59 12/07/18 17:29 Liothyronine Sodium (Cytomel) 5 mcg DAILY ORAL 12/08/18 09:00 01/07/19 08:59 Pantoprazole (Protonix) 40 mg EVERY 12 HOURS ORAL 12/06/18 10:00 01/05/19 09:59 12/07/18 08:04 Sodium Chloride 500 ml @ 30 mls/hr ONCE ONCE IV 12/07/18 11:00 12/08/18 03:39 12/07/18 10:59 Tamsulosin HCl (Flomax) 0.4 mg BEDTIME ORAL 12/07/18 21:00 01/06/19 20:59 Assessment/Plan Assessment/Plan: Abx: None Assessment: CHF exacerbation -CXR: Interstitial edema with development of moderate bilateral airspace disease, the differential for which includes pulmonary edema, ARDS, or multifocal pneumonia. Afebrile No leukocytosis -u/a wbc 5-10, nit neg, leuk +1 Hyponatremia AMY on CKD -Renal US: Posterior bladder wall thickening versus mass. Consider cystoscopy for further evaluation. Increased right renal echogenicity, could indicate medical renal disease. Negative for hydronephrosis. And bilateral pleural effusions. Incidental finding left renal cyst. severe cardiomyopathy EF 35% tobacco abuse HTN Dm2 hx of DVT CVA non compliance Plan: -Continue to monitor off abx -f/u cx -Monitor CBC/CMP, temperatures -aspiration precautions -Cards, Renal f/u Thank you for this consultation. Will continue to follow along with you. Discussed with Grisel Mayes M.D. Dec 07, 2018 19:39
[2018-12-07 20:00] VITALS: BP 140/77
[2018-12-07] MEDS: Carvedilol 25mg Tab ORAL SCH (20:30)
[2018-12-07] MEDS ORDERED: Tamsulosin 0.4mg cap ORAL SCH (21:00)
[2018-12-08] VITALS (7 sets, daily range): BP systolic 110–160; BP diastolic 61–75
--- NOTE | 2018-12-08 03:25 | NUR ---
TRANSFER TO FLOOR: Patient transferred to [facility] [id number]. Report given to MAYCOL You. Belongings given to MAYCOL You. Pt has 2 credit card and Cell phone. Pt is awake and alert. No sign of acute distress noted. IV site intact and no sign of infiltration noted. On O2 3L via nasal canuula.
[2018-12-08 05:44] LABS: BASOPHILS % (AUTO) 0.9 % (0.0-2.0); EOSINOPHILS % (AUTO) 4.6 % (0.0-3.0); HEMATOCRIT 27.9 % (42.0-52.0); HEMOGLOBIN 9.4 G/DL (14.2-18.0); LYMPHOCYTES % (AUTO) 14.6 % (20.0-45.0); MEAN CORPUSCULAR VOLUME 85 FL (80-99); MONOCYTES % (AUTO) 10.5 % (1.0-10.0); NEUTROPHILS % (AUTO) 69.4 % (45.0-75.0); PLATELET COUNT 204 K/UL (150-450); RED CELL DISTRIBUTION WIDTH 11.8 % (11.6-14.8); WHITE BLOOD COUNT 5.9 K/UL (4.8-10.8)
[2018-12-08 06:14] LABS: ALANINE AMINOTRANSFERASE 23 U/L (12-78); ALBUMIN 2.4 G/DL (3.4-5.0); ALBUMIN/GLOBULIN RATIO 0.5 (1.0-2.7); ALKALINE PHOSPHATASE 62 U/L (46-116); ANION GAP 9 mmol/L (5-15); ASPARTATE AMINO TRANSFERASE 40 U/L (15-37); BILIRUBIN,TOTAL 0.6 MG/DL (0.2-1.0); BLOOD UREA NITROGEN 35 mg/dL (7-18); CARBON DIOXIDE 24 MMOL/L (21-32); CHLORIDE 96 MMOL/L (98-107); CREATININE 2.6 MG/DL (0.55-1.30); PHOSPHORUS 4.9 MG/DL (2.5-4.9); POTASSIUM 3.7 MMOL/L (3.5-5.1); SODIUM 129 MMOL/L (136-145)
--- NOTE | 2018-12-08 07:18 | NUR ---
HAND-OFF: Report given to MAYCOL Massey. Pt stable.
--- NOTE | 2018-12-08 07:18 | NUR ---
NURSE NOTES: Nurse report given by MAYCOL You. Patient's sleeping in bed, no s/s of distress or SOB. Bed low and locked, side rails x 2, safety precaution is on, call light within reach, school bus monitor is applied. IV is running fluid, patent and no s/s of tenderness or infiltration. Will continue to monitor.
[2018-12-08] MEDS: Carvedilol 25mg Tab ORAL SCH ×2 (08:16→21:35)
[2018-12-08] MEDS: HydrALAZINE 50mg tab ORAL SCH ×3 (08:16→21:34)
[2018-12-08] MEDS: Heparin 5000 units/ml inj SUBQ SCH ×2 (08:16→21:37)
[2018-12-08] MEDS: Docusate 100mg cap ORAL SCH ×3 (08:16→18:52)
[2018-12-08] MEDS ORDERED: Liothyronine 5mcg tab ORAL SCH (09:00)
[2018-12-08] MEDS ORDERED: NaCl 3% 500ml 500 ML IV ONE (09:30)
--- NOTE | 2018-12-08 11:33 | Infectious Diseases Prog Note ---
Assessment/Plan Assessment/Plan Abx: None Assessment: CHF exacerbation -CXR: Interstitial edema with development of moderate bilateral airspace disease, the differential for which includes pulmonary edema, ARDS, or multifocal pneumonia. Afebrile No leukocytosis -u/a wbc 5-10, nit neg, leuk +1 Hyponatremia AMY on CKD -Renal US: Posterior bladder wall thickening versus mass. Consider cystoscopy for further evaluation. Increased right renal echogenicity, could indicate medical renal disease. Negative for hydronephrosis. And bilateral pleural effusions. Incidental finding left renal cyst. severe cardiomyopathy EF 35% tobacco abuse HTN Dm2 hx of DVT CVA non compliance Plan: -Continue to monitor off abx -f/u cx -Monitor CBC/CMP, temperatures -aspiration precautions -Cards, Renal f/u Thank you for this consultation. Will continue to follow along with you. Discussed with RN Subjective Allergies: Coded Allergies: LITHIUM (Verified Allergy, Unknown, 07/23/13) Subjective afebrile no leukocytosis off abx Objective Vital Signs Last 24 Hour Vital Signs Date Time Temp Pulse Resp B/P (MAP) Pulse Ox O2 Delivery O2 Flow Rate FiO2 12/08/18 09:18 Nasal Cannula 3.0 Nasal Cannula 3.0 12/08/18 08:25 95 Nasal Cannula 3.0 32 12/08/18 08:25 77 18 96 Nasal Cannula 3.0 32 12/08/18 08:17 160/75 12/08/18 08:16 78 160/75 12/08/18 08:16 160/75 12/08/18 08:03 98.7 78 20 160/75 (103) 92 12/08/18 08:00 75 12/08/18 04:00 64 12/08/18 04:00 73 127/61 (83) 92 12/08/18 00:00 60 12/08/18 00:00 Nasal Cannula 3.0 Nasal Cannula 3.0 12/08/18 00:00 97.5 60 20 110/66 (81) 97 12/07/18 20:30 80 140/77 12/07/18 20:00 Nasal Cannula 3.0 Nasal Cannula 3.0 12/07/18 20:00 81 12/07/18 20:00 98.2 80 20 140/77 (98) 97 12/07/18 17:29 132/77 12/07/18 17:29 132/77 10/25/19 16:00 3.0 12/07/18 16:00 71 12/07/18 16:00 97.8 71 16 132/77 (95) 96 12/07/18 12:00 97.9 76 18 160/80 (106) 96 12/07/18 12:00 72 12/07/18 12:00 3.0 12/07/18 12:00 Nasal Cannula 3.0 Nasal Cannula 3.0 Height (Feet): 5 Height (Inches): 8.00 Weight (Pounds): 190 Objective GENERAL: Calm in bed, sleepy, oriented x2, in no acute distress. CARDIOVASCULAR: No murmur. LUNGS: Poor air exchange. ABDOMEN: Bowel sounds distant. EXTREMITIES: Show no cyanosis, clubbing, or edema. NEUROLOGIC: The patient moves all extremities, slightly weak. Laboratory Tests Test 12/07/18 23:33 12/08/18 04:43 Stool Occult Blood Pending White Blood Count 5.9 K/UL (4.8-10.8) Red Blood Count 3.30 M/UL (4.70-6.10) L Hemoglobin 9.4 G/DL (14.2-18.0) L Hematocrit 27.9 % (42.0-52.0) L Mean Corpuscular Volume 85 FL (80-99) Mean Corpuscular Hemoglobin 28.4 PG (27.0-31.0) Mean Corpuscular Hemoglobin Concent 33.6 G/DL (32.0-36.0) Red Cell Distribution Width 11.8 % (11.6-14.8) Platelet Count 204 K/UL (150-450) Mean Platelet Volume 5.9 FL (6.5-10.1) L Neutrophils (%) (Auto) 69.4 % (45.0-75.0) Lymphocytes (%) (Auto) 14.6 % (20.0-45.0) L Monocytes (%) (Auto) 10.5 % (1.0-10.0) H Eosinophils (%) (Auto) 4.6 % (0.0-3.0) H Basophils (%) (Auto) 0.9 % (0.0-2.0) Sodium Level 129 MMOL/L (136-145) L Potassium Level 3.7 MMOL/L (3.5-5.1) Chloride Level 96 MMOL/L (98-107) L Carbon Dioxide Level 24 MMOL/L (21-32) Anion Gap 9 mmol/L (5-15) Blood Urea Nitrogen 35 mg/dL (7-18) H Creatinine 2.6 MG/DL (0.55-1.30) H Estimat Glomerular Filtration Rate 31.6 mL/min (>60) Glucose Level 101 MG/DL (74-106) Uric Acid 6.6 MG/DL (2.6-7.2) Calcium Level 8.0 MG/DL (8.5-10.1) L Phosphorus Level 4.9 MG/DL (2.5-4.9) Magnesium Level 1.8 MG/DL (1.8-2.4) Total Bilirubin 0.6 MG/DL (0.2-1.0) Aspartate Amino Transf (AST/SGOT) 40 U/L (15-37) H Alanine Aminotransferase (ALT/SGPT) 23 U/L (12-78) Alkaline Phosphatase 62 U/L (46-116) C-Reactive Protein, Quantitative 1.7 mg/dL (0.00-0.90) H Pro-B-Type Natriuretic Peptide 39020 pg/mL (0-125) H Total Protein 6.8 G/DL (6.4-8.2) Albumin 2.4 G/DL (3.4-5.0) L Globulin 4.4 g/dL Albumin/Globulin Ratio 0.5 (1.0-2.7) L Current Medications Medications (Trade) Dose Ordered Sig/Manuelito Route PRN Reason Start Time Stop Time Status Last Admin Dose Admin Albuterol/ Ipratropium (Albuterol/ Ipratropium) 3 ml Q4H PRN HHN Shortness of Breath 12/06/18 10:45 12/11/18 10:44 12/06/18 20:59 Carvedilol (Coreg) 25 mg EVERY 12 HOURS ORAL 12/07/18 21:00 01/06/19 20:59 12/08/18 08:16 Clonidine HCl (Catapres Tab) 0.1 mg Q4H PRN ORAL bp over 165 syst 12/07/18 09:45 01/06/19 09:44 Docusate Sodium (Colace) 100 mg THREE TIMES A DAY ORAL 12/06/18 13:00 01/05/19 12:59 12/08/18 08:16 Folic Acid (Folate) 3 mg DAILY ORAL 12/07/18 09:45 01/06/19 09:44 12/08/18 08:16 Furosemide (Lasix) 20 mg Q8H IV 12/06/18 17:00 01/05/19 16:59 12/08/18 08:17 Heparin Sodium (Porcine) (Heparin 5000 units/ml) 5,000 units EVERY 12 HOURS SUBQ 12/07/18 09:00 01/06/19 08:59 12/08/18 08:16 Hydralazine HCl (Apresoline) 50 mg Q8HR ORAL 12/08/18 14:00 01/06/19 17:59 Isosorbide Dinitrate (Isordil) 20 mg BID ORAL 12/07/18 18:00 01/06/19 17:59 12/08/18 08:17 Liothyronine Sodium (Cytomel) 5 mcg DAILY ORAL 12/08/18 09:00 01/07/19 08:59 12/08/18 08:16 Pantoprazole (Protonix) 40 mg EVERY 12 HOURS ORAL 12/06/18 10:00 01/05/19 09:59 12/08/18 08:15 Sodium Chloride 500 ml @ 30 mls/hr ONCE ONCE IV 12/08/18 09:30 12/09/18 02:09 12/08/18 10:13 Tamsulosin HCl (Flomax) 0.4 mg BEDTIME ORAL 12/07/18 21:00 01/06/19 20:59 12/07/18 20:30 Grisel Momin M.D. Dec 08, 2018 11:33
--- NOTE | 2018-12-08 12:19 | Nephrology Progress Note ---
Assessment/Plan Problem List: (1) Hyponatremia (2) Diabetic nephropathy (3) Congestive heart failure (CHF) (4) Hypertensive heart disease (5) Pulmonary edema (6) Anemia Assessment AMY Cardiomyopathy HypoNatremia DM, Nephropathy HTN h/o DVT Plan Mendez, refused, came out 3% saline and Diuresis RITU kidney 2D echo monitor Na jwjdy-Bpsftuc-Teojpol one dose Metholozone RITU: Posterior bladder wall thickening versus mass. Consider cystoscopy for further evaluation Increased right renal echogenicity, could indicate medical renal disease Negative for hydronephrosis And bilateral pleural effusions Incidental finding left renal cyst. Subjective ROS Limited/Unobtainable: No Constitutional: Reports: malaise Objective Objective Last 24 Hour Vital Signs Date Time Temp Pulse Resp B/P (MAP) Pulse Ox O2 Delivery O2 Flow Rate FiO2 12/08/18 09:18 Nasal Cannula 3.0 Nasal Cannula 3.0 12/08/18 08:25 95 Nasal Cannula 3.0 32 12/08/18 08:25 77 18 96 Nasal Cannula 3.0 32 12/08/18 08:17 160/75 12/08/18 08:16 78 160/75 12/08/18 08:16 160/75 12/08/18 08:03 98.7 78 20 160/75 (103) 92 12/08/18 08:00 75 12/08/18 04:00 64 12/08/18 04:00 73 127/61 (83) 92 12/08/18 00:00 60 12/08/18 00:00 Nasal Cannula 3.0 Nasal Cannula 3.0 12/08/18 00:00 97.5 60 20 110/66 (81) 97 12/07/18 20:30 80 140/77 12/07/18 20:00 Nasal Cannula 3.0 Nasal Cannula 3.0 12/07/18 20:00 81 12/07/18 20:00 98.2 80 20 140/77 (98) 97 12/07/18 17:29 132/77 12/07/18 17:29 132/77 12/07/18 16:00 3.0 12/07/18 16:00 71 12/07/18 16:00 97.8 71 16 132/77 (95) 96 Intake and Output 12/07/18 12/08/18 19:00 07:00 Intake Total 680 ml 480 ml Output Total 1200 ml 700 ml Balance -520 ml -220 ml Intake Oral 320 ml 240 ml IV Total 360 ml 240 ml Output Urine Total 1200 ml 700 ml # Voids 4 # Bowel Movements 2 Laboratory Tests 12/07/18 23:33: Stool Occult Blood [Pending] 12/08/18 04:43: White Blood Count 5.9, Red Blood Count 3.30L, Hemoglobin 9.4L, Hematocrit 27.9L , Mean Corpuscular Volume 85, Mean Corpuscular Hemoglobin 28.4, Mean Corpuscular Hemoglobin Concent 33.6, Red Cell Distribution Width 11.8, Platelet Count 204, Mean Platelet Volume 5.9L, Neutrophils (%) (Auto) 69.4, Lymphocytes ( %) (Auto) 14.6L, Monocytes (%) (Auto) 10.5H, Eosinophils (%) (Auto) 4.6H, Basophils (%) (Auto) 0.9, Sodium Level 129L, Potassium Level 3.7, Chloride Level 96L, Carbon Dioxide Level 24, Anion Gap 9, Blood Urea Nitrogen 35H, Creatinine 2.6H, Estimat Glomerular Filtration Rate 31.6, Glucose Level 101, Uric Acid 6.6, Calcium Level 8.0L, Phosphorus Level 4.9, Magnesium Level 1.8, Total Bilirubin 0.6, Aspartate Amino Transf (AST/SGOT) 40H, Alanine Aminotransferase (ALT/SGPT) 23, Alkaline Phosphatase 62, C-Reactive Protein, Quantitative 1.7H, Pro-B-Type Natriuretic Peptide 33773B, Total Protein 6.8, Albumin 2.4L, Globulin 4.4, Albumin/Globulin Ratio 0.5L Height (Feet): 5 Height (Inches): 8.00 Weight (Pounds): 190 General Appearance: no apparent distress Cardiovascular: normal rate Respiratory/Chest: decreased breath sounds Abdomen: distended Madan Marlow MD Dec 08, 2018 12:19
--- NOTE | 2018-12-08 15:07 | General Progress Note ---
Assessment/Plan Problem List: (1) UTI (urinary tract infection) ICD Codes: N39.0 - Urinary tract infection, site not specified SNOMED: 12739807 (2) Renal insufficiency ICD Codes: N28.9 - Disorder of kidney and ureter, unspecified SNOMED: 264458764, 463212674 (3) Anemia ICD Codes: D64.9 - Anemia, unspecified SNOMED: 049311697 (4) Hyponatremia ICD Codes: E87.1 - Hypo-osmolality and hyponatremia SNOMED: 17249977 (5) Congestive heart failure (CHF) ICD Codes: I50.9 - Heart failure, unspecified SNOMED: 22495829 Status: stable, progressing Assessment/Plan: pt diet o2 pulm tx abx cbc bmp am aru eval Subjective Constitutional: Reports: weakness Respiratory: Reports: shortness of breath Allergies: Coded Allergies: LITHIUM (Verified Allergy, Unknown, 07/23/13) All Systems: reviewed and negative except above Subjective o2nc calm Objective Last 24 Hour Vital Signs Date Time Temp Pulse Resp B/P (MAP) Pulse Ox O2 Delivery O2 Flow Rate FiO2 12/08/18 12:45 70 120/70 12/08/18 12:00 98.2 70 20 120/70 (87) 95 12/08/18 09:18 Nasal Cannula 3.0 Nasal Cannula 3.0 12/08/18 08:25 95 Nasal Cannula 3.0 32 12/08/18 08:25 77 18 96 Nasal Cannula 3.0 32 12/08/18 08:17 160/75 12/08/18 08:16 78 160/75 12/08/18 08:16 160/75 12/08/18 08:03 98.7 78 20 160/75 (103) 92 12/08/18 08:00 75 12/08/18 04:00 64 12/08/18 04:00 73 127/61 (83) 92 12/08/18 00:00 60 12/08/18 00:00 Nasal Cannula 3.0 Nasal Cannula 3.0 12/08/18 00:00 97.5 60 20 110/66 (81) 97 12/07/18 20:30 80 140/77 12/07/18 20:00 Nasal Cannula 3.0 Nasal Cannula 3.0 12/07/18 20:00 81 12/07/18 20:00 98.2 80 20 140/77 (98) 97 12/07/18 17:29 132/77 12/07/18 17:29 132/77 12/07/18 16:00 3.0 12/07/18 16:00 71 12/07/18 16:00 97.8 71 16 132/77 (95) 96 Intake and Output 12/07/18 12/08/18 19:00 07:00 Intake Total 680 ml 480 ml Output Total 1200 ml 700 ml Balance -520 ml -220 ml Intake Oral 320 ml 240 ml IV Total 360 ml 240 ml Output Urine Total 1200 ml 700 ml # Voids 4 # Bowel Movements 2 Laboratory Tests 12/07/18 23:33: Stool Occult Blood Negative 12/08/18 04:43: White Blood Count 5.9, Red Blood Count 3.30L, Hemoglobin 9.4L, Hematocrit 27.9L , Mean Corpuscular Volume 85, Mean Corpuscular Hemoglobin 28.4, Mean Corpuscular Hemoglobin Concent 33.6, Red Cell Distribution Width 11.8, Platelet Count 204, Mean Platelet Volume 5.9L, Neutrophils (%) (Auto) 69.4, Lymphocytes ( %) (Auto) 14.6L, Monocytes (%) (Auto) 10.5H, Eosinophils (%) (Auto) 4.6H, Basophils (%) (Auto) 0.9, Sodium Level 129L, Potassium Level 3.7, Chloride Level 96L, Carbon Dioxide Level 24, Anion Gap 9, Blood Urea Nitrogen 35H, Creatinine 2.6H, Estimat Glomerular Filtration Rate 31.6, Glucose Level 101, Uric Acid 6.6, Calcium Level 8.0L, Phosphorus Level 4.9, Magnesium Level 1.8, Total Bilirubin 0.6, Aspartate Amino Transf (AST/SGOT) 40H, Alanine Aminotransferase (ALT/SGPT) 23, Alkaline Phosphatase 62, C-Reactive Protein, Quantitative 1.7H, Pro-B-Type Natriuretic Peptide 72543A, Total Protein 6.8, Albumin 2.4L, Globulin 4.4, Albumin/Globulin Ratio 0.5L Height (Feet): 5 Height (Inches): 8.00 Weight (Pounds): 190 General Appearance: lethargic EENT: normal ENT inspection Neck: normal alignment Cardiovascular: normal peripheral pulses, normal rate, regular rhythm Respiratory/Chest: chest wall non-tender, lungs clear, normal breath sounds Abdomen: normal bowel sounds, non tender, soft Extremities: normal inspection Edema: no edema noted Arm (L), no edema noted Arm (R), no edema noted Leg (L), no edema noted Leg (R), no edema noted Pedal (L), no edema noted Pedal (R), no edema noted Generalized Neurologic: motor weakness Skin: normal pigmentation, warm/dry Can Hay DO Dec 08, 2018 15:07
[2018-12-08] MEDS ORDERED: Tubing IV Secondary IV ONE (16:17)
[2018-12-08] MEDS ORDERED: NS 275ml ONE (16:17)
--- NOTE | 2018-12-08 16:38 | Cardiac Electrophysiology PN ---
Assessment/Plan Assessment/Plan 1. Accelerated hypertension. On Coreg 25 bid, Hydralazine 50 bid and Isordil 20 bid Added p.r.n. clonidine 2. Exacerbation of CHF with EF 35%. Never had cardiac cath to R/O CAD but too risky now in view of creatinine 2.7 On Coreg, Hydralazine and isordil. Lasix dosing per Dr Marlow. Will consider ICD if compliant with meds 3. Renal failure. Creatinine of 2.7. Keep Off ACEI and ARB 4. Diabetes 5. Hx of Severe thrombocytopenia in 07/2017, resolved 6. Severe hyponatremia, Likely due to HCTZ and dilutional for CHF. On 3% Saline and Lasix per Dr Ele BIRD RN Subjective Subjective No CP or SOB but more compliant today Objective Last 24 Hour Vital Signs Date Time Temp Pulse Resp B/P (MAP) Pulse Ox O2 Delivery O2 Flow Rate FiO2 12/08/18 15:04 120/70 12/08/18 12:45 70 120/70 12/08/18 12:00 98.2 70 20 120/70 (87) 95 12/08/18 09:18 Nasal Cannula 3.0 Nasal Cannula 3.0 12/08/18 08:25 95 Nasal Cannula 3.0 32 12/08/18 08:25 77 18 96 Nasal Cannula 3.0 32 12/08/18 08:17 160/75 12/08/18 08:16 78 160/75 12/08/18 08:16 160/75 12/08/18 08:03 98.7 78 20 160/75 (103) 92 12/08/18 08:00 75 12/08/18 04:00 64 12/08/18 04:00 73 127/61 (83) 92 12/08/18 00:00 60 12/08/18 00:00 Nasal Cannula 3.0 Nasal Cannula 3.0 12/08/18 00:00 97.5 60 20 110/66 (81) 97 12/07/18 20:30 80 140/77 12/07/18 20:00 Nasal Cannula 3.0 Nasal Cannula 3.0 12/07/18 20:00 81 12/07/18 20:00 98.2 80 20 140/77 (98) 97 12/07/18 17:29 132/77 12/07/18 17:29 132/77 Intake and Output 12/07/18 12/08/18 19:00 07:00 Intake Total 680 ml 480 ml Output Total 1200 ml 700 ml Balance -520 ml -220 ml Intake Oral 320 ml 240 ml IV Total 360 ml 240 ml Output Urine Total 1200 ml 700 ml # Voids 4 # Bowel Movements 2 Laboratory Tests Test 12/07/18 23:33 12/08/18 04:43 Stool Occult Blood Negative (NEGATIVE) White Blood Count 5.9 K/UL (4.8-10.8) Red Blood Count 3.30 M/UL (4.70-6.10) L Hemoglobin 9.4 G/DL (14.2-18.0) L Hematocrit 27.9 % (42.0-52.0) L Mean Corpuscular Volume 85 FL (80-99) Mean Corpuscular Hemoglobin 28.4 PG (27.0-31.0) Mean Corpuscular Hemoglobin Concent 33.6 G/DL (32.0-36.0) Red Cell Distribution Width 11.8 % (11.6-14.8) Platelet Count 204 K/UL (150-450) Mean Platelet Volume 5.9 FL (6.5-10.1) L Neutrophils (%) (Auto) 69.4 % (45.0-75.0) Lymphocytes (%) (Auto) 14.6 % (20.0-45.0) L Monocytes (%) (Auto) 10.5 % (1.0-10.0) H Eosinophils (%) (Auto) 4.6 % (0.0-3.0) H Basophils (%) (Auto) 0.9 % (0.0-2.0) Sodium Level 129 MMOL/L (136-145) L Potassium Level 3.7 MMOL/L (3.5-5.1) Chloride Level 96 MMOL/L (98-107) L Carbon Dioxide Level 24 MMOL/L (21-32) Anion Gap 9 mmol/L (5-15) Blood Urea Nitrogen 35 mg/dL (7-18) H Creatinine 2.6 MG/DL (0.55-1.30) H Estimat Glomerular Filtration Rate 31.6 mL/min (>60) Glucose Level 101 MG/DL (74-106) Uric Acid 6.6 MG/DL (2.6-7.2) Calcium Level 8.0 MG/DL (8.5-10.1) L Phosphorus Level 4.9 MG/DL (2.5-4.9) Magnesium Level 1.8 MG/DL (1.8-2.4) Total Bilirubin 0.6 MG/DL (0.2-1.0) Aspartate Amino Transf (AST/SGOT) 40 U/L (15-37) H Alanine Aminotransferase (ALT/SGPT) 23 U/L (12-78) Alkaline Phosphatase 62 U/L (46-116) C-Reactive Protein, Quantitative 1.7 mg/dL (0.00-0.90) H Pro-B-Type Natriuretic Peptide 68634 pg/mL (0-125) H Total Protein 6.8 G/DL (6.4-8.2) Albumin 2.4 G/DL (3.4-5.0) L Globulin 4.4 g/dL Albumin/Globulin Ratio 0.5 (1.0-2.7) L Objective HEAD AND NECK: Mild JVD. LUNGS: Clear. CARDIOVASCULAR: Regular S1 and S2 with no gallop or murmur. ABDOMEN: Soft. EXTREMITIES: One plus pitting edema. Shreyas Palacio MD Dec 08, 2018 16:38
--- NOTE | 2018-12-08 19:49 | NUR ---
HAND-OFF: Report given to MAYCOL Groves. Plan of care endorsed. Patients' stable. .
--- NOTE | 2018-12-08 19:54 | NUR ---
NURSE NOTES: Recieved report from MAYCOL Massey. Patient is in bed, asleep. Breathing regular with no distress noted at this time. Bed is in lowest position, breaks engaged, call light is within reach. Patient's IV is intact, running fluids at prescribed rate. Will continue to monitor.
[2018-12-08] MEDS ORDERED: Tamsulosin 0.4mg cap ORAL SCH (21:00)
--- NOTE | 2018-12-08 22:30 | NUR ---
NURSE NOTES: patient found walking around in the ED when asked patient did he need some help patient states " I am leving the hospital just looking for the front door". encourage patient to come back up the floor to his room states " I am leaving" I asked patient would he signed form that he leaving hospital without medical advice he states I signed it down here but i will not go back up the room" Saline lock noted to have been pulled out. Noted patient to be dress and with walllet in hand .
--- NOTE | 2018-12-08 23:27 | NUR ---
NURSE NOTES: Called the doctor at 2245 and left a message that the patient left AMA.
--- NOTE | 2018-12-10 09:36 | Discharge Summary ---
Discharge Summary Discharge Summary _ DATE OF ADMISSION: 12/05/2018 DATE OF DISCHARGE:12/08/2018 Patient left AGAINST MEDICAL ADVICE REASON FOR ADMISSION: 53 years old male with past medical history of hypertension, diabetes mellitus type 2, congestive heart failure, coronary artery disease, presented to emergency department feeling short of breath and dyspnea. Patient reported that he ran out of his medication for the past 3 days. He denied chest pain. He denied any syncopal episode . He reported leg swelling , but no leg pain. Upon evaluation vital signs revealed elevated blood pressure, pulse oximetry was 95% on 2 L of oxygen via nasal cannula. Laboratory work-up revealed no leukocytosis , hemoglobin 11.1, hematocrit 32.4 with MCV of 84. Sodium 125, potassium 3.4 , BUN 17 creatinine 1.7. AST 44 ALT 26. Troponin - 0.039 , Pro BNP 42499. Albumin 2.2. Chest x-ray revealed interstitial edema with development of moderate bilateral airspace disease. EKG revealed sinus rhythm, no acute ischemic changes. Patient was subsequently admitted to telemetry floor for further management. CONSULTANTS: health careers instructor Dr. Bates pulmonary Dr. Carranza ID specialist Dr. Momin timber repairer Dr. Marlow [facility] COURSE: Patient admitted to telemetry floor. Hospital Medical Biller , sky diver and timber repairer closely followed. Serial troponin were negative. EKG revealed no acute ischemic changes. Patient was ruled out for acute myocardial infarction. Echocardiogram demonstrated global left ventricular hypokinesis with left ventricular ejection fraction estimated of 35%. Mild left ventricular hypertrophy. Mitral inflow indicated increased left atrial pressure suggestive of a restrictive pattern grade 3. Mild to moderate tricuspid regurgitation , mild to moderate mitral regurgitation. Right ventricular systolic pressure of 55 , consistent with moderate pulmonary hypertension. Lipid panel was stable. Per health careers instructor , patient need to have a cardiac catheterization to rule out coronary artery disease. Guideline directed medical therapy for congestive heart failure continued with beta-jojo, hydralazine and Isordil. Lasix was dosed per timber repairer due to acute renal failure. No KEILY or ARB given renal failure. Creatinine trended up to 2.7 . Per health careers instructor , at this time cardiac catheterization was too risky in view of the high creatinine. Hospital Medical Biller recommended consider placement of AICD and encouraged compliance with medication. Blood pressure was stabilized with multiple antihypertensive regimen. Supplemental oxygen titrated to keep pulse oximetry above 92%. Bronchodilator treatment provided. Patient was closely followed-up by sky diver. Follow-up chest x-ray was unchanged and showed bilateral diffuse interstitial and airspace infiltrates , probably pulmonary edema. Hyponatremia work-up initiated. Lasix was dosed as per timber repairer. Patient received 3% of normal saline. Sodium was at lowest 118 and on the day when he signed AGAINST MEDICAL ADVICE - 129. Patient refused Mendez catheter as recommended by timber repairer. Patient received a trial dose of metolazone. Renal ultrasound demonstrated posterior bladder wall thickening versus mass. Cystoscopy was recommended. Increased right renal echogenicity, probably indicative of medical renal disease. No hydronephrosis. Bilateral pleural effusion. Acute hyponatremia was likely partly due to prior hydrochlorothiazide use as well as partly dilutional due to CHF. Anemia work-up revealed low iron, ferritin 202. Low folate 7.5 Patient started on folic acid replacement and IV Venofer. Stool for occult blood was negative. Prior to signing AMA hemoglobin 9.4 hematocrit 27.9. Blood sugar was closely monitored and remained stable. Hemoglobin A1c 5.5. Infectious disease specialist followed. Patient had no evidence of infection. No leukocytosis, no fever Infectious disease specialist recommended to monitor patient off antibiotics. Patient decided to leave AGAINST MEDICAL ADVICE and was found next to the entrance door. The risks and consequences of signing AGAINST MEDICAL ADVICE were discussed with patient in detail. Patient verbalized understanding. He declined to go upstairs to sign leaving AGAINST MEDICAL ADVICE form and left. FINAL DIAGNOSES: Acute CHF exacerbation Cardiomyopathy with ejection fraction 35% Acute kidney injury on chronic kidney disease Pulmonary edema Severe hyponatremia Hypertensive heart disease with accelerated hypertension Diabetes mellitus Diabetic nephropathy. Anemia History of DVT Noncompliance I have been assigned to dictate discharge summary for this account. I was not involved in the patient's management. Lucia Roldan NP Dec 10, 2018 09:36
--- NOTE | 2018-12-10 13:25 | Cardiology Report ---
APPROVED REPORT EXAM: Two-dimensional and M-mode echocardiogram with Doppler and color Doppler. INDICATION Congestive Heart Failure M-Mode DIMENSIONS IVSd1.4 (0.7-1.1cm)Left Atrium (MM)4.8 (1.6-4.0cm) LVDd5.5 (3.5-5.6cm)Aortic Root3.6 (2.0-3.7cm) PWd1.1 (0.7-1.1cm)Aortic Cusp Exc.2.0 (1.5-2.0cm) LVDs4.3 (2.5-4.0cm) PWs1.5 cm Mild global left ventricular wall hypokinesia. Normal left ventricular chamber size. Left ventricular ejection fraction is estimated to be 45%. Mild left ventricular hypertrophy. Possible large pleural effusion. Moderate left atrial enlargement. Mild right atrial enlargement. Right ventricular chamber sizes is within normal limits. Mild focal aortic valve sclerosis with adequate cusp excursion. Mildly thickened mitral valve leaflets with normal excursion. Mitral annulus and aortic root calcification. Normal pulmonic valve structure. Normal tricuspid valve structure. IVC dilated at 2.4 cm without physiological collapse, suggestive of increased RA pressure. A color flow and spectral Doppler study was performed and revealed: Mild to moderate mitral regurgitation. Mitral inflow indicates increased left atrial pressure, suggestive restrictive pattern (Grade III). Mild to moderate tricuspid regurgitation. Tricuspid systolic velocities suggests peak right ventricular systolic pressure of 55 mmHg, consistent with moderate pulmonary hypertension. Mild pulmonic regurgitation present.
--- NOTE | 2018-12-10 13:37 | Cardiology Report ---
APPROVED REPORT EKG Measurement Heart [id number] Wandering pacemaker Left axis deviation Right bundle branch block Anteroseptal infarct, age undetermined T wave abnormality, consider lateral ischemia Abnormal ECG
--- NOTE | 2018-12-10 13:43 | Cardiology Report ---
APPROVED REPORT EKG Measurement Heart [id number] 184P [id number] Normal sinus rhythm Possible Anterior infarct, age undetermined Abnormal ECG
--- NOTE | 2018-12-11 10:10 | NUR ---
*-* INSURANCE *-* ALL AVAILABLE CLINICALS HAVE BEEN FAXED TO: [facility] NO CM ASSIGNED PH#[phone] FAX#[phone] REVIEWS/CLINICALS & [facility] NO CM YET PH#[phone] FAX#[phone] REVIEWS/CLINICALS CALLED [facility] S/W NORA AND SHE STATED SYSTEM SHOWS THAT CLINICALS HAVE BEEN RECEIVED BUT SHE IS UNABLE TO GIVE ME NCM NAME.. CALLED [facility] SPOKE WITH KANIKA AND HE STATED ALL CLINICALS RECEIVED AND AUTH AUTHORIZED.
--- NOTE | 2018-12-13 23:37 | Coder Physician Query ---
Clarification is required for compliance, coding accuracy, and to reflect severity of illness for this patient Dear Dr. Ania Hay Date: ____12/13/18 Director Of Retail Merchandising/CDS Name: __Verónica Lopez, [facility] Patient admitted with Acute CHF exacerbation. Patient had Cardiomyopathy with ejection fraction 35% and Hypertensive heart disease with accelerated hypertension. Lasix was dosed per outsole caser due to acute renal failure. BNP 12,885. Please Clarify: Acuity [] Acute [] Chronic [] Acute on Chronic Type [] Systolic [] Diastolic [] Systolic & Diastolic (Combined) [] Other: Present on Admission: [] Yes [] No [] Clinically Undetermined Physician signature Date Please also document in your Progress Notes and/or Discharge Summary and indicate if the condition was present on admission. KRISTIN
== END 2018-12-08 22:30 | disposition left against medical advice (07) | DRG 194 ==
LOC: EDBD 12:19 → EMR 13:30 → EDBEDREQ 14:38 → 2W 15:02 → EDBEDREQ 16:54 → 2W 17:31 → 2E 12-08 03:11
DX: I13.0 Hypertensive heart and chronic kidney disease with heart failure and stage 1 through stage 4 chronic kidney disease, or unspecified chronic kidney disease (principal); E11.22 Type 2 diabetes mellitus with diabetic chronic kidney disease; N18.9 Chronic kidney disease, unspecified; N17.9 Acute kidney failure, unspecified; Z79.84 Long term (current) use of oral hypoglycemic drugs; I50.21 Acute systolic (congestive) heart failure; Z88.8 Allergy status to other drugs, medicaments and biological substances; E87.1 Hypo-osmolality and hyponatremia; N39.0 Urinary tract infection, site not specified; D64.9 Anemia, unspecified; I42.9 Cardiomyopathy, unspecified; Z86.73 Personal history of transient ischemic attack (TIA), and cerebral infarction without residual deficits; E11.21 Type 2 diabetes mellitus with diabetic nephropathy; I45.2 Bifascicular block; E87.5 Hyperkalemia; Z86.718 Personal history of other venous thrombosis and embolism; Z91.19 Patient's noncompliance with other medical treatment and regimen; I25.10 Atherosclerotic heart disease of native coronary artery without angina pectoris; I36.1 Nonrheumatic tricuspid (valve) insufficiency; I34.0 Nonrheumatic mitral (valve) insufficiency; I27.20 Pulmonary hypertension, unspecified
CPT/HCPCS: 36415; 71045; 76770; 80048; 80053; 80061; 80307; 81001; 82140; 82270; 82378; 82550; 82607; 82728; 82746; 83036; 83540; 83550; 83615; 83735; 83880; 83930; 83935; 84100; 84439; 84443; 84481; 84484; 84550; 85007; 85025; 85044; 85060; 85610; 85651; 85730; 86140; 93005; 93306; 94640; 94664; 96372; 99291; J7620; J8499

== ENCOUNTER 2018-12-30 18:38 | Inpatient (IN) | payer MEDICAID ==
[~2018-12-30] VITALS: Ht 172.7 cm; Wt 72.6 kg
[~2018-12-30 18:38] MED LIST changes: +AMLODIPINE BES2.5 MG ORAL; +HYDROCHLOROTH12.5 M2 ORAL; +METFORMIN HCL500 M1 ORAL
--- NOTE | 2018-12-30 18:43 | NUR ---
ED Nurse Note: Pt BIBA from home due to resp distress. RA SAT 91%,patient was placed on NRB en route, maintained >95%. Patient aox4, placed on hospital gown, cont. youth nutritional monitor, and cont. pulse ox. Patient saturating 96 on RA at the moment. RT at bedside for breathing treatment as ordered. EKG done, shows ST with HR 104. Blood collected and sent down to lab. Will continue to monitor and carry out orders.
[2018-12-30] MEDS ORDERED: Ipratropium 0.02% Inh Soln 2.5ml UD HHN ONE (18:45)
[2018-12-30] MEDS ORDERED: Albuterol ud Inhalation HHN ONE (18:45)
[2018-12-30] MEDS ORDERED: Nitroglycerin 2% oint pkt TOPIC ONE (18:45)
--- NOTE | 2018-12-30 18:51 | Emergency Room Report ---
History of Present Illness General Chief Complaint: Dyspnea/Respdistress Source: Patient Present Illness [facility] Disclaimer: Please note that this report is being documented using DRAGON technology. This can lead to erroneous entry secondary to incorrect interpretation by the dictating instrument. HPI: 53-year-old male presents for evaluation of shortness of breath. He has a history of hypertension, hyperlipidemia, diabetes, CHF with reduced ejection fraction at 35% and CAD. Notes noncompliance with his Lasix medication. He is progressively more short of breath and looks lower extremity edema. Denies chest pain, syncope, abdominal pain, vomiting or diarrhea. Continues to smoke but denies a history of COPD and does not use inhalers or steroids. PMH: CHF, CAD, diabetes, hypertension, hyperlipidemia PSH: Reviewed in chart Allergies: [place] Social Hx: Current smoker Allergies: Coded Allergies: LITHIUM (Verified Allergy, Unknown, 07/23/13) Nursing Documentation-PMH Past Medical History: No History, Except For Hx Cardiac Problems: Yes - CHF Hx Hypertension: Yes Hx Diabetes: Yes Hx Cancer: No Hx Gastrointestinal Problems: No Hx Neurological Problems: No Hx Cerebrovascular Accident: Yes Review of Systems All Other Systems: negative except mentioned in HPI Physical Exam Vital Signs Date Time Temp Pulse Resp B/P (MAP) Pulse Ox O2 Delivery O2 Flow Rate FiO2 12/30/18 18:39 97 26 184/127 (146) 100 Non-Rebreather General: Awake and alert, moderate respiratory distress HEENT: NC/AT. EOMI. Cardiovascular: Borderline tachycardia. S1 and S2 normal. No murmur appreciated Resp: Tachypnea and moderately increased work of breathing. He is on 100% nonrebreather. Bilateral inspiratory and expiratory wheezes as well as bilateral crackles at the lung bases. No cough. Abdomen: Abdomen is soft, nondistended. Nontender Skin: Intact. No abrasions, laceration or rash over the exposed skin MSK: 3+ pitting edema in the lower extremities up to the knees bilaterally. The left calf is visibly enlarged as compared to the right. No significant tenderness. Neuro: Awake and alert. Mentating appropriately. Procedures Critical Care Time Critical Care Time Total critical care time: Approximately 31 minutes Due to a high probability of clinically significant, life threatening deterioration, the patient required the highest level of preparedness to intervene emergently and I personally spent this critical care time directly and personally managing the patient. This critical care time included obtaining a history, examining the patient, pulse oximetry, ordering and reviewing studies , ordering treatments, evaluating response to treatment and updating management plan as needed, frequent reassessment and discussion with other providers as well as arranging for ultimate disposition. This critical to care time was performed to assess and manage the high probability of life-threatening deterioration that could result in multiorgan failure. This critical care time is separate from the separately billable procedures and treating other patients. Medical Decision Making Diagnostic Impression: Primary Impression: Renal insufficiency Additional Impressions: Hyponatremia Congestive heart failure (CHF) Hypertensive heart disease ER Course 53-year-old male with a history of CHF and a current smoker presents for moderate respiratory distress and lower extremity edema. He is noncompliant with his Lasix medication. Differential includes but is not limited to CHF exacerbation, COPD, pneumonia, bronchitis, pneumothorax, ACS, PE, DVT, URI, GERD , esophageal spasm. Of these, CHF exacerbation appears to be the most likely. He will be started Nitropaste and given Lasix empirically. He will have chest x -ray, EKG, labs including cardiac enzymes, BN peptide and will also arrange for looks remedy duplex study to rule out DVT given the unilateral enlargement in his left calf which he states is new. He is hypertensive but saturating 100% on nonrebreather. Laboratory Tests Test 12/30/18 18:42 White Blood Count 8.0 K/UL (4.8-10.8) Red Blood Count 4.66 M/UL (4.70-6.10) L Hemoglobin 12.9 G/DL (14.2-18.0) L Hematocrit 38.3 % (42.0-52.0) L Mean Corpuscular Volume 82 FL (80-99) Mean Corpuscular Hemoglobin 27.7 PG (27.0-31.0) Mean Corpuscular Hemoglobin Concent 33.7 G/DL (32.0-36.0) Red Cell Distribution Width 10.9 % (11.6-14.8) L Platelet Count 564 K/UL (150-450) H Mean Platelet Volume 5.4 FL (6.5-10.1) L Neutrophils (%) (Auto) 71.2 % (45.0-75.0) Lymphocytes (%) (Auto) 15.7 % (20.0-45.0) L Monocytes (%) (Auto) 6.4 % (1.0-10.0) Eosinophils (%) (Auto) 3.6 % (0.0-3.0) H Basophils (%) (Auto) 3.0 % (0.0-2.0) H Sodium Level 126 MMOL/L (136-145) L Potassium Level 4.4 MMOL/L (3.5-5.1) Chloride Level 97 MMOL/L (98-107) L Carbon Dioxide Level 16 MMOL/L (21-32) L Anion Gap 14 mmol/L (5-15) Blood Urea Nitrogen 16 mg/dL (7-18) Creatinine 1.9 MG/DL (0.55-1.30) H Estimate Glomerular Filtration Rate 45.3 mL/min (>60) Glucose Level 111 MG/DL (74-106) H Calcium Level 8.4 MG/DL (8.5-10.1) L Total Bilirubin 0.6 MG/DL (0.2-1.0) Aspartate Amino Transferase (AST) 48 U/L (15-37) H Alanine Aminotransferase (ALT) 23 U/L (12-78) Alkaline Phosphatase 95 U/L (46-116) Troponin I 0.026 ng/mL (0.000-0.056) Pro-B-Type Natriuretic Peptide 88126 pg/mL (0-125) H Total Protein 8.7 G/DL (6.4-8.2) H Albumin 2.8 G/DL (3.4-5.0) L Globulin 5.9 g/dL Albumin/Globulin Ratio 0.5 (1.0-2.7) L EKG Diagnostic Results EKG Time: 18:47 Rate: tachycardiac Rhythm: NSR ST Segments: no acute changes Other Impression Sinus tachycardia, normal axis, normal intervals, nonspecific ST segment changes. Occasional PVC Rhythm Strip Diag. Results EP Interpretation: yes Rate: 100s Rhythm: NSR Chest X-Ray Diagnostic Results Chest X-Ray Diagnostic Results : Chest X-Ray Ordered: Yes # of Views/Limited/Complete: 1 View Indication: Shortness of Breath Interpretation: other - Bilateral interstitial edema Impression: Other - Bilateral interstitial edema consistent with CHF Electronically Signed by: Electronically signed by Dr. Nathanael Looney Reevaluation Time: 21:59 Last Vital Signs Date Time Temp Pulse Resp B/P (MAP) Pulse Ox O2 Delivery O2 Flow Rate FiO2 12/30/18 18:46 196/126 12/30/18 18:39 97 26 100 Non-Rebreather Reevaluation Impression No evidence of DVT on duplex ultrasound. Patient's BN peptide is significantly elevated consistent with acute CHF exacerbation. Renal function is at baseline. Troponin is negative. Patient had Nitropaste applied and was given 80 mg IV Lasix. Diuresis approximately 800 cc so far. Breathing improved. We will give him his home hypertensive medications for elevated blood pressures. Patient has mild hyponatremia like on previous admission. Stable for admission to medical floor Disposition: ADMITTED INPATIENT Condition: Serious Nathanael Looney MD Dec 30, 2018 18:51
[2018-12-30 18:53] VITALS: BP 196/126
--- NOTE | 2018-12-30 19:02 | NUR ---
ED Nurse Note: xray at bedside
--- NOTE | 2018-12-30 19:13 | NUR ---
HAND-OFF: Report given to MAYCOL Abel.
[2018-12-30 19:16] LABS: EOSINOPHILS % (AUTO) 3.6 % (0.0-3.0); HEMATOCRIT 38.3 % (42.0-52.0); HEMOGLOBIN 12.9 G/DL (14.2-18.0); LYMPHOCYTES % (AUTO) 15.7 % (20.0-45.0); MEAN CORPUSCULAR VOLUME 82 FL (80-99); MONOCYTES % (AUTO) 6.4 % (1.0-10.0); NEUTROPHILS % (AUTO) 71.2 % (45.0-75.0); PLATELET COUNT 564 K/UL (150-450); RED BLOOD COUNT 4.66 M/UL (4.70-6.10); RED CELL DISTRIBUTION WIDTH 10.9 % (11.6-14.8)
[2018-12-30 19:23] LABS: ANION GAP 14 mmol/L (5-15); BLOOD UREA NITROGEN 16 mg/dL (7-18); CALCIUM 8.4 MG/DL (8.5-10.1); CARBON DIOXIDE 16 MMOL/L (21-32); CHLORIDE 97 MMOL/L (98-107); CREATININE 1.9 MG/DL (0.55-1.30); POTASSIUM 4.4 MMOL/L (3.5-5.1); SODIUM 126 MMOL/L (136-145)
[2018-12-30 19:33] LABS: ALANINE AMINOTRANSFERASE 23 U/L (12-78); ALBUMIN 2.8 G/DL (3.4-5.0); ALBUMIN/GLOBULIN RATIO 0.5 (1.0-2.7); ALKALINE PHOSPHATASE 95 U/L (46-116); ASPARTATE AMINO TRANSFERASE 48 U/L (15-37); BILIRUBIN,TOTAL 0.6 MG/DL (0.2-1.0)
[2018-12-30 21:00] VITALS: BP 180/103
--- NOTE | 2018-12-30 21:00 | NUR ---
ED Nurse Note: PT resting in bed with eyes closed, non-labored breathing, no further orders at this time, awaiting bed upstairs, will continue to monitor
--- NOTE | 2018-12-30 21:41 | Diagnostic Imaging Report ---
Indication: Bilateral lower extremity pain for one week Technique: Grayscale and duplex images of the bilateral lower extremity veins Comparison: none Findings: Bilaterally, grayscale and duplex images demonstrate no evidence of intraluminal thrombus. Normal phasic Doppler waveforms, demonstrating normal augmentation response and no evidence of valvular insufficiency. Normal compressibility. Incidentally noted is diffuse edema of the subcutaneous fat Impression: Negative for evidence of lower extremity deep venous thrombosis Edema of the subcutaneous fat bilaterally is noted
--- NOTE | 2018-12-30 23:10 | NUR ---
TRANSFER TO FLOOR: Patient transferred to as ordered, per Dr Arriaga. Report given to MAYCOL Cui . Belongings and medications given to . Family and or S/O informed of transfer.
[2018-12-30 23:30] VITALS: BP 180/100
--- NOTE | 2018-12-30 23:30 | NUR ---
NURSE NOTES: Received report from MAYCOL Abel. Patient was transferred from ED to telemetry via gurney accompanied by 2 staff member, without any incident. Patient is awake, lying in semi daniels's; resting comfortably. A/Ox4. Able to make needs known. Denies pain at this time. No signs of distress noted. Checked IV site and flushed. No signs of erythema, bleeding or infiltration noted. Bed at lowest position, brakes on, siderailx2. Call light within reach. Will continue to monitor. Addendum: 12/31/18 at 0417 by Basilia Coon RN Placed on tele clau, ST on the monitor, 108 bpm. Addendum: 12/31/18 at 0554 by Basilia Coon RN Patient complained of . Labored breathing noted. RR=24. Offered oxygen @ 2LPM via NC. Comfort care provided. Will continue to monitor.
--- NOTE | 2018-12-30 23:50 | NUR ---
NURSE NOTES: Paged Dr. Hay for admitting orders. Awaiting for callback.
--- NOTE | 2018-12-31 00:40 | NUR ---
NURSE NOTES: Per Dr. Hay to enter bridging order by ED MD and consult Dr. Carranza in AM. Noted and carried out.
--- NOTE | 2018-12-31 03:24 | NUR ---
NURSE NOTES: Resting throughout the night. No significant change of condition noted. Will continue to monitor.
[2018-12-31 04:00] VITALS: BP 162/87
--- NOTE | 2018-12-31 04:30 | NUR ---
NURSE NOTES: Denies pain at this time. No complains of /SOB. Respiration even and unlabored. Vital signs taken which revealed T 98.0, DE 102, RR 20, BP 162/87, O2 sat 99%. Will continue to monitor.
--- NOTE | 2018-12-31 05:19 | NUR ---
NURSE NOTES: Paged Dr. Carranza for further orders, awaiting for callback.
--- NOTE | 2018-12-31 05:55 | NUR ---
NURSE NOTES: Paged Dr. Carranza for orders, awaiting for call back.
[2018-12-31] MEDS ORDERED: Miralax 17gm pkt ORAL PRN (07:15)
[2018-12-31] MEDS ORDERED: Albuterol/Ipratropium 3ml neb HHN PRN (07:15)
--- NOTE | 2018-12-31 07:20 | NUR ---
HAND-OFF: Report given to MAYCOL Milner. Plan of care endorsed. Patient is in stable condition. No signs of distress noted.
--- NOTE | 2018-12-31 07:22 | NUR ---
NURSE NOTES: Received report from MAYCOL Cui. Patient in bed resting, no active s/s cardiac, respiratory distress noticed at this time. Patient on 2L oxygen via NC at this time, denies pain at this time. AOx4, ST with HR 115. IV on left hand 20G, asymptomatic, patent, intact. Bed in lowest position, side rails upx3, call light within reach. Will continue to monitor.
[2018-12-31 08:00] VITALS: BP 158/109
[2018-12-31] MEDS: Heparin 5000 units/ml inj SUBQ SCH ×3 (08:23→21:36)
--- NOTE | 2018-12-31 10:00 | NUR ---
NURSE NOTES: Dr. Carranza made aware patient schedule for 2D echo, last 2D echo done on 12/06/18, resulted as 45%. Per MD, no need to repeat. Order noted, entered, carried out.
--- NOTE | 2018-12-31 10:57 | NUR ---
NURSE NOTES: Dr. Carranza at the nursing station made aware of Na 126 today. No new order given at this time. Will continue to monitor.
--- NOTE | 2018-12-31 10:59 | Consultation ---
History of Present Illness General Date patient seen: Dec 31, 2018 Chief Complaint: Dyspnea/Respdistress Present Illness HPI 53 year old male with hx of HTN, hypertensive heart disease, EF of 35% last admission in November 2018, noncompliance, DM presented to ER with CC of dyspnea for two days. His CXR showed pulmonary edema. He is admitted to [facility] for further treatment. Allergies: Coded Allergies: LITHIUM (Verified Allergy, Unknown, 07/23/13) Medication History Scheduled Amlodipine Besylate* (Amlodipine Besylate*), 2.5 MG ORAL DAILY, (Reported) Hydrochlorothiazide* (Hydrochlorothiazide*), 12.5 MG ORAL DAILY, (Reported) Metformin Hcl (Metformin Hcl Er), 500 MG ORAL BID, (Reported) Metformin Hcl* (Metformin Hcl*), 500 MG ORAL TWICE A DAY, (Reported) Miscellaneous Medications [hctz], (Reported) [metformin], (Reported) [metformin], (Reported) Patient History Healthcare decision maker Resuscitation status Full Code Advanced Directive on File Past Medical/Surgical History Past Medical/Surgical History: (1) Pulmonary edema (2) Hypertensive heart disease (3) Congestive heart failure (CHF) (4) Diabetes mellitus (5) Diabetic nephropathy Review of Systems All Other Systems: negative except mentioned in HPI Physical Exam General Appearance: WD/WN Lines, tubes and drains: peripheral HEENT: normocephalic, anicteric Neck: non-tender, normal alignment Respiratory/Chest: chest wall non-tender, rhonchi - bilaterally Cardiovascular/Chest: normal peripheral pulses, normal rate Abdomen: normal bowel sounds, non tender, no organomegaly Genitourinary/Rectal: normal genital exam Extremities: moderate edema Skin Exam: normal pigmentation Neurologic: wine manager II-XII grossly normal Last 24 Hour Vital Signs Date Time Temp Pulse Resp B/P (MAP) Pulse Ox O2 Delivery O2 Flow Rate FiO2 12/31/18 09:00 Nasal Cannula 2.0 12/31/18 08:17 102 158/109 12/31/18 08:00 103 12/31/18 08:00 98.1 102 20 158/109 (125) 95 12/31/18 04:00 98.0 102 20 162/87 (112) 99 12/31/18 04:00 115 12/31/18 00:05 Nasal Cannula 2.0 12/30/18 23:30 97.7 98 24 180/100 (126) 93 12/30/18 23:28 108 12/30/18 23:10 98.0 98 18 183/110 93 Room Air 12/30/18 21:57 89 183/110 12/30/18 21:00 98.0 98 18 180/103 93 Room Air 12/30/18 18:57 100 20 96 Room Air 102 22 92 12/30/18 18:53 97.8 101 26 196/126 96 Non-Rebreather 12/30/18 18:53 97 26 Non-Rebreather 12/30/18 18:46 196/126 12/30/18 18:39 97 26 184/127 (146) 100 Non-Rebreather Intake and Output 12/30/18 12/31/18 19:00 07:00 Output Total 2100 ml Balance -2100 ml Output Urine Total 2100 ml # Voids 3 # Bowel Movements 1 Laboratory Tests Test 12/30/18 18:42 12/31/18 09:30 White Blood Count 8.0 K/UL (4.8-10.8) Red Blood Count 4.66 M/UL (4.70-6.10) L Hemoglobin 12.9 G/DL (14.2-18.0) L Hematocrit 38.3 % (42.0-52.0) L Mean Corpuscular Volume 82 FL (80-99) Mean Corpuscular Hemoglobin 27.7 PG (27.0-31.0) Mean Corpuscular Hemoglobin Concent 33.7 G/DL (32.0-36.0) Red Cell Distribution Width 10.9 % (11.6-14.8) L Platelet Count 564 K/UL (150-450) H Mean Platelet Volume 5.4 FL (6.5-10.1) L Neutrophils (%) (Auto) 71.2 % (45.0-75.0) Lymphocytes (%) (Auto) 15.7 % (20.0-45.0) L Monocytes (%) (Auto) 6.4 % (1.0-10.0) Eosinophils (%) (Auto) 3.6 % (0.0-3.0) H Basophils (%) (Auto) 3.0 % (0.0-2.0) H Sodium Level 126 MMOL/L (136-145) L Potassium Level 4.4 MMOL/L (3.5-5.1) Chloride Level 97 MMOL/L (98-107) L Carbon Dioxide Level 16 MMOL/L (21-32) L Anion Gap 14 mmol/L (5-15) Blood Urea Nitrogen 16 mg/dL (7-18) Creatinine 1.9 MG/DL (0.55-1.30) H Estimat Glomerular Filtration Rate 45.3 mL/min (>60) Glucose Level 111 MG/DL (74-106) H Calcium Level 8.4 MG/DL (8.5-10.1) L Total Bilirubin 0.6 MG/DL (0.2-1.0) Aspartate Amino Transf (AST/SGOT) 48 U/L (15-37) H Alanine Aminotransferase (ALT/SGPT) 23 U/L (12-78) Alkaline Phosphatase 95 U/L (46-116) Troponin I 0.026 ng/mL (0.000-0.056) 0.026 ng/mL (0.000-0.056) Pro-B-Type Natriuretic Peptide 77528 pg/mL (0-125) H Total Protein 8.7 G/DL (6.4-8.2) H Albumin 2.8 G/DL (3.4-5.0) L Globulin 5.9 g/dL Albumin/Globulin Ratio 0.5 (1.0-2.7) L Height (Feet): 5 Height (Inches): 8.00 Weight (Pounds): 160 Medications Current Medications Medications (Trade) Dose Ordered Sig/Manuelito Route PRN Reason Start Time Stop Time Status Last Admin Dose Admin Acetaminophen (Tylenol) 650 mg Q4H PRN ORAL Fever 12/31/18 07:15 01/30/19 07:14 Albuterol/ Ipratropium (Albuterol/ Ipratropium) 3 ml Q4H PRN HHN Shortness of Breath 12/31/18 07:15 01/05/19 07:14 Amlodipine Besylate (Norvasc) 2.5 mg DAILY ORAL 12/31/18 09:00 01/30/19 08:59 12/31/18 08:17 Dextrose (Dextrose 50%) 25 ml Q30M PRN IV Hypoglycemia 12/31/18 07:15 01/30/19 07:14 Dextrose (Dextrose 50%) 50 ml Q30M PRN IV Hypoglycemia 12/31/18 07:15 01/30/19 07:14 Furosemide (Lasix) 40 mg EVERY 8 HOURS IV 12/31/18 14:00 01/30/19 13:59 Heparin Sodium (Porcine) (Heparin 5000 units/ml) 5,000 units EVERY 12 HOURS SUBQ 12/31/18 09:00 01/30/19 08:59 12/31/18 08:23 Insulin Aspart (NovoLOG) BEFORE MEALS AND HS SUBQ 12/31/18 11:30 01/30/19 11:29 Ondansetron HCl (Zofran) 4 mg Q6H PRN IVP Nausea & Vomiting 12/31/18 07:15 01/30/19 07:14 Polyethylene Glycol (Miralax) 17 gm DAILYPRN PRN ORAL Constipation 12/31/18 07:15 01/30/19 07:14 Temazepam (Restoril) 15 mg HSPRN PRN ORAL Insomnia 12/31/18 07:15 01/07/19 07:14 Assessment/Plan Problem List: (1) Pulmonary edema ICD Codes: J81.1 - Chronic pulmonary edema SNOMED: 49656601 (2) Congestive heart failure (CHF) ICD Codes: I50.9 - Heart failure, unspecified SNOMED: 38778938 (3) Hypertensive heart disease ICD Codes: I11.9 - Hypertensive heart disease without heart failure SNOMED: 54552787 (4) Hyponatremia ICD Codes: E87.1 - Hypo-osmolality and hyponatremia SNOMED: 12237751 (5) Renal insufficiency ICD Codes: N28.9 - Disorder of kidney and ureter, unspecified SNOMED: 247296526, 553799954 (6) Diabetic nephropathy ICD Codes: E11.21 - Type 2 diabetes mellitus with diabetic nephropathy SNOMED: 104214725 (7) Diabetes mellitus ICD Codes: E11.9 - Type 2 diabetes mellitus without complications SNOMED: 74733513 Assessment/Plan: respiratory treatment check electrolytes cxr and bnp in Giovani Morris MD Dec 31, 2018 10:59
--- NOTE | 2018-12-31 11:00 | NUR ---
NURSE NOTES: Dr. Carranza at the nursing station made aware of elevated blood pressure 150-160. No new order given at this time other than Lasix IV.
--- NOTE | 2018-12-31 11:09 | NUR ---
*-* NO INSURANCE INFORMATION IN THE BAR UNABLE TO SEND CLINICALS OR REVIEWS *-*
[2018-12-31] MEDS: NovoLOG Insulin Flexpen SUBQ SCH ×3 (11:30→21:00)
--- NOTE | 2018-12-31 11:38 | Diagnostic Imaging Report ---
Indication: Shortness of breath Technique: One view of the chest Comparison: 12/07/2018 Findings: The heart is enlarged. There are bilateral interstitial and airspace infiltrates versus edema. There may be small bilateral pleural effusions. Findings are similar to the prior study Impression: Cardiomegaly. Bilateral interstitial and airspace infiltrates versus edema, most likely on the basis of congestive heart failure. Bilateral pneumonia also possible Suspect small bilateral pleural effusions
[2018-12-31 12:00] VITALS: BP 160/102
--- NOTE | 2018-12-31 14:00 | History and Physical Report ---
DATE OF ADMISSION: 12/30/2018 DATE AND TIME SEEN: 12/31/2018 at 9 a.m. CONSULTANTS: 1. Giovani Carranza M.D. 2. Gabe Alarcon M.D. CHIEF COMPLAINT: Shortness of breath, CHF, hypertension, diabetes, and respiratory distress. BRIEF HISTORY: This is a 53-year-old male, who lives at home, one week of increasing shortness of breath and respiratory distress, came to [facility], diagnosed with the above, admitted to telemetry for further care. Currently, O2 NC, calm, slight short of breath. No complaint. REVIEW OF SYSTEMS: No chest pain. Slight short of breath. No nausea, vomiting, or diarrhea. PAST MEDICAL HISTORY: CHF, diabetes, hypertension, anemia, and renal insufficiency. PAST SURGICAL HISTORY: None. MEDICATIONS: Include furosemide, insulin, amlodipine, heparin, temazepam, Zofran, and albuterol. ALLERGIES: [place]. SOCIAL HISTORY: Positive smoking. No alcohol. No intravenous drug abuse. FAMILY HISTORY: Noncontributory. PHYSICAL EXAMINATION: GENERAL: Calm in bed, oriented x2, slight short of breath. VITAL SIGNS: Temperature 98 degrees, pulse 102, respirations 20, and blood pressure 158/109. CARDIOVASCULAR: No murmur. LUNGS: Poor air exchange. ABDOMEN: Bowel sounds distant. EXTREMITIES: No cyanosis, clubbing, or edema. LABORATORY AND DIAGNOSTIC DATA: Labs at this time show hemoglobin and hematocrit 12/38, platelets 564, otherwise CBC is normal. BMP show sodium 126, chloride 97, CO2 16, creatinine 1.9, glucose 111. BNP is 27,674. Albumin 2.8. ASSESSMENT: 1. Respiratory distress. 2. Shortness of breath. 3. CHF. 4. Diabetes. 5. Hypertension. 6. Anemia. 7. Renal insufficiency. PLAN: 1. O2 and pulmonary treatment. 2. Blood pressure and blood sugar control. 3. Dietary followup. 4. Nephrology followup. 5. We will add Nephrology evaluation. Can Hay D.O. DR: NISH/JOSELUIS JOB#: [id number] CC:
--- NOTE | 2018-12-31 14:35 | Consultation ---
Consult Note Consult Note asked to evaluate at the request of Dr Hay- Patient known to me from his previous admission interviewed examined ER: HPI: 53-year-old male presents for evaluation of shortness of breath. He has a history of hypertension, hyperlipidemia, diabetes, CHF with reduced ejection fraction at 35% and CAD. Notes noncompliance with his Lasix medication. He is progressively more short of breath and looks lower extremity edema. Denies chest pain, syncope, abdominal pain, vomiting or diarrhea. Continues to smoke but denies a history of COPD and does not use inhalers or steroids. PMH: CHF, CAD, diabetes, hypertension, hyperlipidemia Allergies: [place] Coded Allergies: LITHIUM (Verified Allergy, Unknown, 07/23/13) Past Medical History: No History, Except For Hx Cardiac Problems: Yes - CHF Hx Hypertension: Yes Hx Diabetes: Yes Hx Cerebrovascular Accident: Yes Assessment/Plan (1) Hyponatremia (2) Diabetic nephropathy / Renal failure (3) Congestive heart failure (CHF) / Cardiomyopathy (4) Hypertensive heart disease (5) Pulmonary edema (6) Anemia (7) h/o DVT 3% saline and Diuresis afterload reduction had RITU kidney previous admission had 2D echo previous admission monitor Na and renal parameters [id number] per orders Madan Marlow MD Dec 31, 2018 14:35
[2018-12-31] MEDS ORDERED: Carvedilol 12.5mg tab ORAL SCH (14:45)
[2018-12-31] MEDS: Tamsulosin 0.4mg cap ORAL SCH ×2 (15:29→18:00)
[2018-12-31 16:00] VITALS: BP 163/107
[2018-12-31] MEDS ORDERED: NaCl 3% 500ml 250 ML IV ONE (16:00)
--- NOTE | 2018-12-31 16:04 | NUR ---
P.T Note:P P.T evaluation completed and tx initiated. Please refer to P.T evaluation for current functional status.
[2018-12-31 16:59] LABS: APPEARANCE,URINE CLEAR; BILIRUBIN, URINE NEGATIVE (NEGATIVE); COLOR,URINE PALE YELLOW; GLUCOSE, URINE (UA) NEGATIVE (NEGATIVE); KETONES,URINE NEGATIVE (NEGATIVE); LEUKOCYTE ESTERASE ,URINE NEGATIVE (NEGATIVE); NITRITE,URINE NEGATIVE (NEGATIVE); PH,URINE 6 (4.5-8.0); PROTEIN,URINE 3+ (NEGATIVE); UROBILINOGEN,URINE NORMAL MG/DL (0.0-1.0)
[2018-12-31] MEDS: Docusate 100mg cap ORAL SCH (18:16)
--- NOTE | 2018-12-31 18:16 | NUR ---
CASE MANAGEMENT: REVIEW 53Y/MALE BIBA FROM HOME CC: RESP DISTRESS SI: CHF EXACERBATION T 97.8 HR 102 RR 26 BP 184/127 SAT 96% NON-REBREATHER NA 126 CHLOR 97 TROP 0.026 BNP 20596 IS: NITRO 1 INCH TOPICAL X1 ATROVENT HHN X1 ALBUTEROL HHN X1 LASIX IV X1 NORVASC PO X1 PATIENT ADMITTED TO TELEMETRY UNIT 12/30/2018 DCP: PATIENT IS FROM HOME
[2018-12-31] MEDS: HydrALAZINE 10mg Tab ORAL SCH ×2 (18:17→23:50)
--- NOTE | 2018-12-31 19:24 | NUR ---
NURSE NOTES: Received patient from MAYCOL Milner, in stable condition, AOx4, lying in bed, able to make needs known, denies pain at this time, IV site on L hand g20, asymptomatic, intact ,patent, bed low and locked, side rails upx2, call light within reach will continue to monitor and reassess
--- NOTE | 2018-12-31 19:37 | NUR ---
HAND-OFF: Report given to MAYCOL Crook.
[2018-12-31 20:00] VITALS: BP 157/91
[2018-12-31] MEDS: Carvedilol 12.5mg tab ORAL SCH (21:34)
[2018-12-31 23:54] VITALS: BP 156/100
[2019-01-01 04:00] VITALS: BP 162/104
[2019-01-01] MEDS: HydrALAZINE 10mg Tab ORAL SCH (05:27)
[2019-01-01 06:25] LABS: BASOPHILS % (AUTO) 1.1 % (0.0-2.0); EOSINOPHILS % (AUTO) 5.4 % (0.0-3.0); HEMOGLOBIN 10.2 G/DL (14.2-18.0); LYMPHOCYTES % (AUTO) 22.6 % (20.0-45.0); MEAN CORPUSCULAR VOLUME 81 FL (80-99); MONOCYTES % (AUTO) 8.9 % (1.0-10.0); PLATELET COUNT 501 K/UL (150-450); WHITE BLOOD COUNT 5.8 K/UL (4.8-10.8)
[2019-01-01] MEDS: NovoLOG Insulin Flexpen SUBQ SCH ×2 (06:30→11:30)
[2019-01-01 06:56] LABS: AMMONIA 24 umol/L (11-32)
[2019-01-01 07:04] LABS: % IRON SATURATION 28 % (15-50); IRON 70 ug/dL (50-175); TOTAL IRON BINDING CAPACITY 247 ug/dL (250-450)
[2019-01-01 07:10] LABS: CREATINE KINASE 318 U/L (26-308); GAMMA GLUTAMYL TRANSPEPTIDASE 60 U/L (5-85); PHOSPHORUS 4.5 MG/DL (2.5-4.9)
[2019-01-01 07:15] LABS: ALANINE AMINOTRANSFERASE 22 U/L (12-78); ALBUMIN 2.6 G/DL (3.4-5.0); ALBUMIN/GLOBULIN RATIO 0.5 (1.0-2.7); ALKALINE PHOSPHATASE 79 U/L (46-116); ANION GAP 14 mmol/L (5-15); ASPARTATE AMINO TRANSFERASE 38 U/L (15-37); BILIRUBIN,TOTAL 0.5 MG/DL (0.2-1.0); BLOOD UREA NITROGEN 18 mg/dL (7-18); CALCIUM 8.7 MG/DL (8.5-10.1); CARBON DIOXIDE 21 MMOL/L (21-32); CHLORIDE 102 MMOL/L (98-107); CHOLESTEROL 140 MG/DL (< 200); CREATININE 2.2 MG/DL (0.55-1.30); FERRITIN 408 NG/ML (8-388); HDL CHOLESTEROL 25 MG/DL (40-60); POTASSIUM 3.7 MMOL/L (3.5-5.1); SODIUM 136 MMOL/L (136-145); TRIGLYCERIDES 73 MG/DL (30-150)
--- NOTE | 2019-01-01 07:30 | NUR ---
NURSE NOTES: Received patient from Miguel Crook. Patient is awake sitting up in bed.Lasix gtt running @ 11ml/hr via left Forearm IV. Patient denies pain or discomfort at this time. fall/ safety precautions in place. call rogers within patients reached. will follow.
--- NOTE | 2019-01-01 07:40 | NUR ---
HAND-OFF: Report given to MAYCOL Smith patient in stable comndition, plan of care endorsed.
[2019-01-01 08:00] VITALS: BP 162/111
[2019-01-01] MEDS: Docusate 100mg cap ORAL SCH (08:22)
[2019-01-01] MEDS: Carvedilol 12.5mg tab ORAL SCH (08:22)
[2019-01-01] MEDS: Tamsulosin 0.4mg cap ORAL SCH (08:23)
[2019-01-01] MEDS: Heparin 5000 units/ml inj SUBQ SCH (08:26)
[2019-01-01] MEDS ORDERED: Liothyronine 5mcg tab ORAL SCH (09:00)
--- NOTE | 2019-01-01 09:03 | NUR ---
RADIOLOGY DEPT., CHEST X-RAY DONE.-P.DYE
--- NOTE | 2019-01-01 10:11 | NUR ---
*-* INSURANCE *-* ALL CLINICALS AND REVIEWS HAVE BEEN FAXED TO: [employer] Ref#[id number] No [facility]#[phone] fax#[phone]
--- NOTE | 2019-01-01 11:03 | Pulmonology Progress Note ---
Assessment/Plan Problems: (1) Pulmonary edema (2) Congestive heart failure (CHF) (3) Hypertensive heart disease (4) Hyponatremia (5) Renal insufficiency (6) Diabetic nephropathy (7) Diabetes mellitus Assessment/Plan diuresing well check electrolytes cardiology and renal are following pt wants to go home Subjective ROS Limited/Unobtainable: No Constitutional: Reports: no symptoms HEENT: Repors: no symptoms Allergies: Coded Allergies: LITHIUM (Verified Allergy, Unknown, 07/23/13) Objective Last 24 Hour Vital Signs Date Time Temp Pulse Resp B/P (MAP) Pulse Ox O2 Delivery O2 Flow Rate FiO2 01/01/19 08:23 92 162/111 01/01/19 08:22 92 162/111 01/01/19 08:00 91 01/01/19 08:00 98.2 92 20 162/111 (128) 100 01/01/19 05:27 160/100 01/01/19 04:00 85 01/01/19 04:00 97.9 87 19 162/104 (123) 99 01/01/19 00:00 86 12/31/18 23:54 98.2 96 19 156/100 (118) 97 12/31/18 23:50 156/100 12/31/18 21:34 95 157/91 12/31/18 21:00 Nasal Cannula 2.0 12/31/18 20:00 87 12/31/18 20:00 97.9 95 20 157/91 (113) 97 12/31/18 18:17 163/107 12/31/18 16:02 97 Non-Rebreather 2.0 28 12/31/18 16:00 98.6 100 20 163/107 (125) 97 12/31/18 16:00 99 12/31/18 15:29 100 160/107 12/31/18 12:00 98.1 93 20 160/102 (121) 98 12/31/18 12:00 89 Intake and Output 12/31/18 01/01/19 19:00 07:00 Intake Total 740 ml 300 ml Output Total 1600 ml 1200 ml Balance -860 ml -900 ml Intake Oral 740 ml 300 ml Output Urine Total 1600 ml 1200 ml # Bowel Movements 1 General Appearance: WD/WN HEENT: normocephalic, atraumatic Respiratory/Chest: chest wall non-tender, lungs clear, chest wall tender Cardiovascular: normal peripheral pulses Abdomen: normal bowel sounds, soft, non tender Extremities: no cyanosis 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, normal mood/affect Lymphatic: no neck adenopathy Laboratory Tests 12/31/18 16:55: Urine Color Pale yellow, Urine Appearance Clear, Urine pH 6, Urine Specific [place] 1.010, Urine Protein 3+H, Urine Glucose (UA) Negative, Urine Ketones Negative, Urine Blood 3+H, Urine Nitrite Negative, Urine Bilirubin Negative, Urine Urobilinogen Normal, Urine Leukocyte Esterase Negative, Urine RBC 15-20H, Urine WBC 0, Urine Squamous Epithelial Cells Occasional, Urine Bacteria Few, Urine Opiates Screen Negative, Urine Barbiturates Screen Negative, Phencyclidine (PCP) Screen Negative, Urine Amphetamines Screen Negative, Urine Benzodiazepines Screen Negative, Urine Cocaine Screen Negative, Urine Marijuana (THC) Screen Negative 01/01/19 05:25: White Blood Count 5.8, Red Blood Count 3.70L, Hemoglobin 10.2L, Hematocrit 30.0L , Mean Corpuscular Volume 81, Mean Corpuscular Hemoglobin 27.7, Mean Corpuscular Hemoglobin Concent 34.2, Red Cell Distribution Width 11.0L, Platelet Count 501H, Mean Platelet Volume 5.0L, Neutrophils (%) (Auto) 62.0, Lymphocytes (%) (Auto) 22.6, Monocytes (%) (Auto) 8.9, Eosinophils (%) (Auto) 5.4H, Basophils (%) (Auto) 1.1, Sodium Level 136, Potassium Level 3.7, Chloride Level 102, Carbon Dioxide Level 21, Anion Gap 14, Blood Urea Nitrogen 18, Creatinine 2.2H, Estimat Glomerular Filtration Rate 38.3, Glucose Level 88, Hemoglobin A1c 5.6, Osmolality 277L, Uric Acid 4.9, Calcium Level 8.7, Phosphorus Level 4.5, Magnesium Level 1.5L, Iron Level 70, Total Iron Binding Capacity 247L, Percent Iron Saturation 28, Unsaturated Iron Binding 177, Ferritin 408H, Total Bilirubin 0.5, Gamma Glutamyl Transpeptidase 60, Aspartate Amino Transf (AST/SGOT) 38H, Alanine Aminotransferase (ALT/SGPT) 22, Alkaline Phosphatase 79, Ammonia 24, Total Creatine Kinase 318H, Troponin I 0.022, Pro-B- Type Natriuretic Peptide > 74477T, Total Protein 7.9, Albumin 2.6L, Globulin 5.3 , Albumin/Globulin Ratio 0.5L, Triglycerides Level 73, Cholesterol Level 140, LDL Cholesterol 102H, HDL Cholesterol 25L, Cholesterol/HDL Ratio 5.6H, Vitamin B12 Level 474, Folate 15.3, Thyroid Stimulating Hormone (TSH) 2.186, Free Thyroxine 1.26, Free Triiodothyronine 2.0L Current Medications Medications (Trade) Dose Ordered Sig/Manuelito Route PRN Reason Start Time Stop Time Status Last Admin Dose Admin Acetaminophen (Tylenol) 650 mg Q4H PRN ORAL Fever 12/31/18 07:15 01/30/19 07:14 Albuterol/ Ipratropium (Albuterol/ Ipratropium) 3 ml Q4H PRN HHN Shortness of Breath 12/31/18 07:15 01/05/19 07:14 Amlodipine Besylate (Norvasc) 2.5 mg DAILY ORAL 12/31/18 09:00 01/30/19 08:59 01/01/19 08:23 Carvedilol (Coreg) 12.5 mg EVERY 12 HOURS ORAL 12/31/18 21:00 01/30/19 20:59 01/01/19 08:22 Clonidine HCl (Catapres Tab) 0.1 mg Q4H PRN ORAL bp over 165 syst 12/31/18 15:00 01/30/19 14:59 Dextrose (Dextrose 50%) 25 ml Q30M PRN IV Hypoglycemia 12/31/18 07:15 01/30/19 07:14 Dextrose (Dextrose 50%) 50 ml Q30M PRN IV Hypoglycemia 12/31/18 07:15 01/30/19 07:14 Docusate Sodium (Colace) 100 mg TWICE A DAY ORAL 12/31/18 18:00 01/30/19 17:59 01/01/19 08:22 Folic Acid (Folate) 1 mg DAILY ORAL 01/01/19 09:00 01/31/19 08:59 01/01/19 08:22 Furosemide 100 mg/ Dextrose 110 ml @ 11 mls/hr Q10H IV 01/01/19 10:00 01/31/19 09:59 01/01/19 09:23 Heparin Sodium (Porcine) (Heparin 5000 units/ml) 5,000 units EVERY 12 HOURS SUBQ 12/31/18 09:00 01/30/19 08:59 12/31/18 08:23 Hydralazine HCl (Apresoline) 10 mg Q6HR ORAL 12/31/18 18:00 01/30/19 17:59 01/01/19 05:27 Insulin Aspart (NovoLOG) BEFORE MEALS AND HS SUBQ 12/31/18 11:30 01/30/19 11:29 Liothyronine Sodium (Cytomel) 5 mcg DAILY ORAL 01/01/19 09:00 01/31/19 08:59 01/01/19 08:22 Magnesium Sulfate 100 ml @ 100 mls/hr Q1H IVPB 01/01/19 10:00 01/01/19 12:59 01/01/19 10:37 Ondansetron HCl (Zofran) 4 mg Q6H PRN IVP Nausea & Vomiting 12/31/18 07:15 01/30/19 07:14 Pantoprazole (Protonix) 40 mg DAILY ORAL 01/01/19 09:00 01/31/19 08:59 01/01/19 08:23 Polyethylene Glycol (Miralax) 17 gm DAILYPRN PRN ORAL Constipation 12/31/18 07:15 01/30/19 07:14 Tamsulosin HCl (Flomax) 0.4 mg BID ORAL 12/31/18 14:45 01/30/19 14:44 01/01/19 08:23 Temazepam (Restoril) 15 mg HSPRN PRN ORAL Insomnia 12/31/18 07:15 01/07/19 07:14 Giovani Carranza MD Jan 01, 2019 11:03
--- NOTE | 2019-01-01 11:10 | Cardiology Progress Note ---
Assessment/Plan Assessment/Plan increase hydralazine add , Isordil increase norvasc agree with coreg but may be start at a loer does na and fluid restriction thank you [phone] Objective Last 24 Hour Vital Signs Date Time Temp Pulse Resp B/P (MAP) Pulse Ox O2 Delivery O2 Flow Rate FiO2 01/01/19 08:23 92 162/111 01/01/19 08:22 92 162/111 01/01/19 08:00 91 01/01/19 08:00 98.2 92 20 162/111 (128) 100 01/01/19 05:27 160/100 01/01/19 04:00 85 01/01/19 04:00 97.9 87 19 162/104 (123) 99 01/01/19 00:00 86 12/31/18 23:54 98.2 96 19 156/100 (118) 97 12/31/18 23:50 156/100 12/31/18 21:34 95 157/91 12/31/18 21:00 Nasal Cannula 2.0 12/31/18 20:00 87 12/31/18 20:00 97.9 95 20 157/91 (113) 97 12/31/18 18:17 163/107 12/31/18 16:02 97 Non-Rebreather 2.0 28 12/31/18 16:00 98.6 100 20 163/107 (125) 97 12/31/18 16:00 99 12/31/18 15:29 100 160/107 12/31/18 12:00 98.1 93 20 160/102 (121) 98 12/31/18 12:00 89 Intake and Output 12/31/18 01/01/19 19:00 07:00 Intake Total 740 ml 300 ml Output Total 1600 ml 1200 ml Balance -860 ml -900 ml Intake Oral 740 ml 300 ml Output Urine Total 1600 ml 1200 ml # Bowel Movements 1 Laboratory Tests Test 12/31/18 16:55 01/01/19 05:25 Urine Color Pale yellow Urine Appearance Clear Urine pH 6 (4.5-8.0) Urine Specific [place] 1.010 (1.005-1.035) Urine Protein 3+ (NEGATIVE) H Urine Glucose (UA) Negative (NEGATIVE) Urine Ketones Negative (NEGATIVE) Urine Blood 3+ (NEGATIVE) H Urine Nitrite Negative (NEGATIVE) Urine Bilirubin Negative (NEGATIVE) Urine Urobilinogen Normal MG/DL (0.0-1.0) Urine Leukocyte Esterase Negative (NEGATIVE) Urine RBC 15-20 /HPF (0 - 0) H Urine WBC 0 /HPF (0 - 0) Urine Squamous Epithelial Cells Occasional /LPF Urine Bacteria Few /HPF (NONE) Urine Opiates Screen Negative (NEGATIVE) Urine Barbiturates Screen Negative (NEGATIVE) Phencyclidine (PCP) Screen Negative (NEGATIVE) Urine Amphetamines Screen Negative (NEGATIVE) Urine Benzodiazepines Screen Negative (NEGATIVE) Urine Cocaine Screen Negative (NEGATIVE) Urine Marijuana (THC) Screen Negative (NEGATIVE) White Blood Count 5.8 K/UL (4.8-10.8) Red Blood Count 3.70 M/UL (4.70-6.10) L Hemoglobin 10.2 G/DL (14.2-18.0) L Hematocrit 30.0 % (42.0-52.0) L Mean Corpuscular Volume 81 FL (80-99) Mean Corpuscular Hemoglobin 27.7 PG (27.0-31.0) Mean Corpuscular Hemoglobin Concent 34.2 G/DL (32.0-36.0) Red Cell Distribution Width 11.0 % (11.6-14.8) L Platelet Count 501 K/UL (150-450) H Mean Platelet Volume 5.0 FL (6.5-10.1) L Neutrophils (%) (Auto) 62.0 % (45.0-75.0) Lymphocytes (%) (Auto) 22.6 % (20.0-45.0) Monocytes (%) (Auto) 8.9 % (1.0-10.0) Eosinophils (%) (Auto) 5.4 % (0.0-3.0) H Basophils (%) (Auto) 1.1 % (0.0-2.0) Sodium Level 136 MMOL/L (136-145) Potassium Level 3.7 MMOL/L (3.5-5.1) Chloride Level 102 MMOL/L (98-107) Carbon Dioxide Level 21 MMOL/L (21-32) Anion Gap 14 mmol/L (5-15) Blood Urea Nitrogen 18 mg/dL (7-18) Creatinine 2.2 MG/DL (0.55-1.30) H Estimat Glomerular Filtration Rate 38.3 mL/min (>60) Glucose Level 88 MG/DL (74-106) Hemoglobin A1c 5.6 % (4.3-6.0) Osmolality 277 mOsm/kg (297-317) L Uric Acid 4.9 MG/DL (2.6-7.2) Calcium Level 8.7 MG/DL (8.5-10.1) Phosphorus Level 4.5 MG/DL (2.5-4.9) Magnesium Level 1.5 MG/DL (1.8-2.4) L Iron Level 70 ug/dL (50-175) Total Iron Binding Capacity 247 ug/dL (250-450) L Percent Iron Saturation 28 % (15-50) Unsaturated Iron Binding 177 ug/dL (112-346) Ferritin 408 NG/ML (8-388) H Total Bilirubin 0.5 MG/DL (0.2-1.0) Gamma Glutamyl Transpeptidase 60 U/L (5-85) Aspartate Amino Transf (AST/SGOT) 38 U/L (15-37) H Alanine Aminotransferase (ALT/SGPT) 22 U/L (12-78) Alkaline Phosphatase 79 U/L (46-116) Ammonia 24 umol/L (11-32) Total Creatine Kinase 318 U/L (26-308) H Troponin I 0.022 ng/mL (0.000-0.056) Pro-B-Type Natriuretic Peptide > 20996 pg/mL (0-125) H Total Protein 7.9 G/DL (6.4-8.2) Albumin 2.6 G/DL (3.4-5.0) L Globulin 5.3 g/dL Albumin/Globulin Ratio 0.5 (1.0-2.7) L Triglycerides Level 73 MG/DL (30-150) Cholesterol Level 140 MG/DL (< 200) LDL Cholesterol 102 mg/dL (<100) H HDL Cholesterol 25 MG/DL (40-60) L Cholesterol/HDL Ratio 5.6 (3.3-4.4) H Vitamin B12 Level 474 PG/ML (193-986) Folate 15.3 NG/ML (8.6-58.9) Thyroid Stimulating Hormone (TSH) 2.186 uiU/mL (0.358-3.740) Free Thyroxine 1.26 NG/DL (0.76-1.46) Free Triiodothyronine 2.0 pg/mL (2.3-4.2) L Gabe Alarcon MD Jan 01, 2019 11:10
[2019-01-01] MEDS ORDERED: COREG12.5 MG ORAL (11:11)
[2019-01-01] MEDS ORDERED: FUROSEMIDE40 MG ORAL (11:11)
--- NOTE | 2019-01-01 11:13 | Diagnostic Imaging Report ---
Indication: Dyspnea Technique: One view of the chest Comparison: 12/30/2018 Findings: The heart is enlarged. There previously demonstrated interstitial and airspace edema has improved, with some residual disease still present. There are probably trace bilateral pleural effusions Impression: Improved although slightly persistent bilateral interstitial and airspace edema, since prior study of 2 days earlier
--- NOTE | 2019-01-01 11:30 | NUR ---
NURSE NOTES: received discharge order from today. aware patient magnesium level 1.5 and current;y gettomg IV magnesium. ok to discharge patient after IV magnesium given ton patient will follow.
[2019-01-01 12:00] VITALS: BP 150/82
[2019-01-01] MEDS ORDERED: Imdur 30mg tab ORAL SCH (12:00)
--- NOTE | 2019-01-01 12:02 | Nephrology Progress Note ---
Assessment/Plan Problem List: (1) Diabetic nephropathy (2) Hypertensive heart disease (3) Hyponatremia (4) Anemia (5) Congestive heart failure (CHF) Assessment: cardiomyopathy Assessment (1) Hyponatremia (2) Diabetic nephropathy / Renal failure (3) Congestive heart failure (CHF) / Cardiomyopathy (4) Hypertensive heart disease (5) Pulmonary edema (6) Anemia (7) h/o DVT Plan 3% saline and Diuresis as needed afterload reduction had RITU kidney previous admission had 2D echo previous admission monitor Na and renal parameters [id number]-[id number] per orders Subjective ROS Limited/Unobtainable: No Constitutional: Reports: malaise, weakness Objective Objective Last 24 Hour Vital Signs Date Time Temp Pulse Resp B/P (MAP) Pulse Ox O2 Delivery O2 Flow Rate FiO2 01/01/19 08:23 92 162/111 01/01/19 08:22 92 162/111 01/01/19 08:00 91 01/01/19 08:00 98.2 92 20 162/111 (128) 100 01/01/19 05:27 160/100 01/01/19 04:00 85 01/01/19 04:00 97.9 87 19 162/104 (123) 99 01/01/19 00:00 86 12/31/18 23:54 98.2 96 19 156/100 (118) 97 12/31/18 23:50 156/100 12/31/18 21:34 95 157/91 12/31/18 21:00 Nasal Cannula 2.0 12/31/18 20:00 87 12/31/18 20:00 97.9 95 20 157/91 (113) 97 12/31/18 18:17 163/107 12/31/18 16:02 97 Non-Rebreather 2.0 28 12/31/18 16:00 98.6 100 20 163/107 (125) 97 12/31/18 16:00 99 12/31/18 15:29 100 160/107 12/31/18 12:00 98.1 93 20 160/102 (121) 98 12/31/18 12:00 89 Intake and Output 12/31/18 01/01/19 19:00 07:00 Intake Total 740 ml 300 ml Output Total 1600 ml 1200 ml Balance -860 ml -900 ml Intake Oral 740 ml 300 ml Output Urine Total 1600 ml 1200 ml # Bowel Movements 1 Laboratory Tests 12/31/18 16:55: Urine Color Pale yellow, Urine Appearance Clear, Urine pH 6, Urine Specific [place] 1.010, Urine Protein 3+H, Urine Glucose (UA) Negative, Urine Ketones Negative, Urine Blood 3+H, Urine Nitrite Negative, Urine Bilirubin Negative, Urine Urobilinogen Normal, Urine Leukocyte Esterase Negative, Urine RBC 15-20H, Urine WBC 0, Urine Squamous Epithelial Cells Occasional, Urine Bacteria Few, Urine Opiates Screen Negative, Urine Barbiturates Screen Negative, Phencyclidine (PCP) Screen Negative, Urine Amphetamines Screen Negative, Urine Benzodiazepines Screen Negative, Urine Cocaine Screen Negative, Urine Marijuana (THC) Screen Negative 01/01/19 05:25: White Blood Count 5.8, Red Blood Count 3.70L, Hemoglobin 10.2L, Hematocrit 30.0L , Mean Corpuscular Volume 81, Mean Corpuscular Hemoglobin 27.7, Mean Corpuscular Hemoglobin Concent 34.2, Red Cell Distribution Width 11.0L, Platelet Count 501H, Mean Platelet Volume 5.0L, Neutrophils (%) (Auto) 62.0, Lymphocytes (%) (Auto) 22.6, Monocytes (%) (Auto) 8.9, Eosinophils (%) (Auto) 5.4H, Basophils (%) (Auto) 1.1, Sodium Level 136, Potassium Level 3.7, Chloride Level 102, Carbon Dioxide Level 21, Anion Gap 14, Blood Urea Nitrogen 18, Creatinine 2.2H, Estimat Glomerular Filtration Rate 38.3, Glucose Level 88, Hemoglobin A1c 5.6, Osmolality 277L, Uric Acid 4.9, Calcium Level 8.7, Phosphorus Level 4.5, Magnesium Level 1.5L, Iron Level 70, Total Iron Binding Capacity 247L, Percent Iron Saturation 28, Unsaturated Iron Binding 177, Ferritin 408H, Total Bilirubin 0.5, Gamma Glutamyl Transpeptidase 60, Aspartate Amino Transf (AST/SGOT) 38H, Alanine Aminotransferase (ALT/SGPT) 22, Alkaline Phosphatase 79, Ammonia 24, Total Creatine Kinase 318H, Troponin I 0.022, Pro-B- Type Natriuretic Peptide > 34125M, Total Protein 7.9, Albumin 2.6L, Globulin 5.3 , Albumin/Globulin Ratio 0.5L, Triglycerides Level 73, Cholesterol Level 140, LDL Cholesterol 102H, HDL Cholesterol 25L, Cholesterol/HDL Ratio 5.6H, Vitamin B12 Level 474, Folate 15.3, Thyroid Stimulating Hormone (TSH) 2.186, Free Thyroxine 1.26, Free Triiodothyronine 2.0L Height (Feet): 5 Height (Inches): 8.00 Weight (Pounds): 160 General Appearance: no apparent distress Cardiovascular: tachycardia Respiratory/Chest: decreased breath sounds Abdomen: distended Madan Marlow MD Jan 01, 2019 12:02
[2019-01-01] MEDS ORDERED: HydrALAZINE 25mg tab ORAL SCH ×2 (13:00→14:00)
[2019-01-01 13:27] VITALS: BP 150/82
--- NOTE | 2019-01-01 14:27 | General Progress Note ---
Assessment/Plan Problem List: (1) Renal insufficiency ICD Codes: N28.9 - Disorder of kidney and ureter, unspecified SNOMED: 678027542, 950247852 (2) Anemia ICD Codes: D64.9 - Anemia, unspecified SNOMED: 306981791 (3) Hypertensive heart disease ICD Codes: I11.9 - Hypertensive heart disease without heart failure SNOMED: 06049614 (4) Congestive heart failure (CHF) ICD Codes: I50.9 - Heart failure, unspecified SNOMED: 20730209 (5) Diabetes mellitus ICD Codes: E11.9 - Type 2 diabetes mellitus without complications SNOMED: 14176525 Status: unchanged Assessment/Plan: o2 pulm tx pt diet cbc bmp am Subjective Constitutional: Reports: weakness Respiratory: Reports: shortness of breath Allergies: Coded Allergies: LITHIUM (Verified Allergy, Unknown, 07/23/13) All Systems: reviewed and negative except above Subjective o2nc sleepy in bed Objective Last 24 Hour Vital Signs Date Time Temp Pulse Resp B/P (MAP) Pulse Ox O2 Delivery O2 Flow Rate FiO2 01/01/19 13:27 150/82 01/01/19 13:26 150/82 01/01/19 12:00 98.6 84 20 150/82 (104) 100 01/01/19 09:00 Nasal Cannula 2.0 01/01/19 08:23 92 162/111 01/01/19 08:22 92 162/111 01/01/19 08:00 91 01/01/19 08:00 98.2 92 20 162/111 (128) 100 01/01/19 05:27 160/100 01/01/19 04:00 85 01/01/19 04:00 97.9 87 19 162/104 (123) 99 01/01/19 00:00 86 12/31/18 23:54 98.2 96 19 156/100 (118) 97 12/31/18 23:50 156/100 12/31/18 21:34 95 157/91 12/31/18 21:00 Nasal Cannula 2.0 12/31/18 20:00 87 12/31/18 20:00 97.9 95 20 157/91 (113) 97 12/31/18 18:17 163/107 12/31/18 16:02 97 Non-Rebreather 2.0 28 12/31/18 16:00 98.6 100 20 163/107 (125) 97 12/31/18 16:00 99 12/31/18 15:29 100 160/107 Intake and Output 12/31/18 01/01/19 19:00 07:00 Intake Total 740 ml 300 ml Output Total 1600 ml 1200 ml Balance -860 ml -900 ml Intake Oral 740 ml 300 ml Output Urine Total 1600 ml 1200 ml # Bowel Movements 1 Laboratory Tests 12/31/18 16:55: Urine Color Pale yellow, Urine Appearance Clear, Urine pH 6, Urine Specific [place] 1.010, Urine Protein 3+H, Urine Glucose (UA) Negative, Urine Ketones Negative, Urine Blood 3+H, Urine Nitrite Negative, Urine Bilirubin Negative, Urine Urobilinogen Normal, Urine Leukocyte Esterase Negative, Urine RBC 15-20H, Urine WBC 0, Urine Squamous Epithelial Cells Occasional, Urine Bacteria Few, Urine Opiates Screen Negative, Urine Barbiturates Screen Negative, Phencyclidine (PCP) Screen Negative, Urine Amphetamines Screen Negative, Urine Benzodiazepines Screen Negative, Urine Cocaine Screen Negative, Urine Marijuana (THC) Screen Negative 01/01/19 05:25: White Blood Count 5.8, Red Blood Count 3.70L, Hemoglobin 10.2L, Hematocrit 30.0L , Mean Corpuscular Volume 81, Mean Corpuscular Hemoglobin 27.7, Mean Corpuscular Hemoglobin Concent 34.2, Red Cell Distribution Width 11.0L, Platelet Count 501H, Mean Platelet Volume 5.0L, Neutrophils (%) (Auto) 62.0, Lymphocytes (%) (Auto) 22.6, Monocytes (%) (Auto) 8.9, Eosinophils (%) (Auto) 5.4H, Basophils (%) (Auto) 1.1, Sodium Level 136, Potassium Level 3.7, Chloride Level 102, Carbon Dioxide Level 21, Anion Gap 14, Blood Urea Nitrogen 18, Creatinine 2.2H, Estimat Glomerular Filtration Rate 38.3, Glucose Level 88, Hemoglobin A1c 5.6, Osmolality 277L, Uric Acid 4.9, Calcium Level 8.7, Phosphorus Level 4.5, Magnesium Level 1.5L, Iron Level 70, Total Iron Binding Capacity 247L, Percent Iron Saturation 28, Unsaturated Iron Binding 177, Ferritin 408H, Total Bilirubin 0.5, Gamma Glutamyl Transpeptidase 60, Aspartate Amino Transf (AST/SGOT) 38H, Alanine Aminotransferase (ALT/SGPT) 22, Alkaline Phosphatase 79, Ammonia 24, Total Creatine Kinase 318H, Troponin I 0.022, Pro-B- Type Natriuretic Peptide > 29112S, Total Protein 7.9, Albumin 2.6L, Globulin 5.3 , Albumin/Globulin Ratio 0.5L, Triglycerides Level 73, Cholesterol Level 140, LDL Cholesterol 102H, HDL Cholesterol 25L, Cholesterol/HDL Ratio 5.6H, Vitamin B12 Level 474, Folate 15.3, Thyroid Stimulating Hormone (TSH) 2.186, Free Thyroxine 1.26, Free Triiodothyronine 2.0L Height (Feet): 5 Height (Inches): 8.00 Weight (Pounds): 160 General Appearance: lethargic EENT: normal ENT inspection Neck: normal alignment Cardiovascular: normal peripheral pulses, normal rate, regular rhythm Respiratory/Chest: chest wall non-tender, lungs clear, normal breath sounds Abdomen: normal bowel sounds, non tender, soft Extremities: normal inspection Edema: no edema noted Arm (L), no edema noted Arm (R), no edema noted Leg (L), no edema noted Leg (R), no edema noted Pedal (L), no edema noted Pedal (R), no edema noted Generalized Neurologic: motor weakness Skin: normal pigmentation, warm/dry Can Hay DO Jan 01, 2019 14:27
--- NOTE | 2019-01-01 16:09 | NUR ---
NURSE NOTES: Patient discharge to home per 's order. patient is AAAOx4. VSS. ambulated off the floor with steady gait. transportation arranged via [employer] at 1550. Heart monitor,IV and ID band removed from patient. Discharge instructions and medications discussed to patient. verbalizes understanding.
[2019-01-01] MEDS ORDERED: Carvedilol 12.5mg tab ORAL SCH ×2 (21:00)
--- NOTE | 2019-01-02 03:15 | Consultation ---
DATE OF CONSULTATION: 01/01/2019 CARDIOLOGY CONSULTATION CONSULTING PHYSICIAN: Gabe Alarcon M.D. REFERRING PHYSICIANS: 1. Can Hay D.O. 2. Giovani Carranza M.D. REASON FOR REFERRAL: Heart failure. HISTORY OF PRESENT ILLNESS: This is a middle-aged gentleman with history of congestive heart failure who presents to the hospital because of shortness of breath. The patient apparently just recently hospitalized and discharged here. He went home on hydrochlorothiazide and returns because of recurrent shortness of breath, shortness of breath with at rest and exertion. He is not able to lie down because of shortness of breath and has 2 pillow orthopnea. He has no dizziness or lightheadedness and no heart pounding or palpitation. No real pain with activity, he is just not able to do much he says at home. He has had this congestive failure for number of years. He has been hospitalized at many different places including [facility], [facility], and other hospitals as well as here. PAST MEDICAL HISTORY: Positive for diabetes mellitus and hypertension. He thinks he may have had a heart attack before, but he is not sure if he may have the stroke before. No cancer. He has history of hepatitis B. He has chronic renal insufficiency. No ulcers and he has been told about some kind of liver problems as well. No blood clots. No bleeding disorder or prostate problems. MEDICATIONS: His medications prior to admission was Norvasc and hydrochlorothiazide and he has been started on Coreg during this hospitalization as well. He is receiving hydralazine 10 mg q.6 hours. Because of his renal insufficiency, he is not able to take KEILY inhibitors or ARB's. ALLERGIES: He is allergic to lithium. SOCIAL HISTORY: He smokes. He rolls his own cigarettes 3 or 4 per day. He states he drinks alcoholic beverages whenever he has money and he used to use crack cocaine, but he has not done so in a number of years, maybe 20 years or so. REVIEW OF SYSTEMS: GASTROINTESTINAL: Positive for constipation and black stools. GENITOURINARY: Negative. PULMONARY: Positive for wheezing. CONSTITUTIONAL: Negative. NEUROLOGIC: Negative. PHYSICAL EXAMINATION: GENERAL: Shows to be middle-aged gentleman, in no respiratory distress. VITAL SIGNS: The patient's blood pressure is 162/104 to 111, heart rate of 92, and temperature 98.1. HEENT: Unremarkable. NECK: Supple. No jugular venous distention. LUNGS: Appear to have some crackles at the bases. CARDIAC: Regular rate and rhythm. No heaves or thrills noted. ABDOMEN: Soft and obese. Positive bowel sounds. EXTREMITIES: A 1+ edema in the lower extremities. LABORATORY DATA: His laboratories white count of 5.8, hemoglobin 10.2, and a platelet count of 501,000. Sodium 136, potassium 3.7, chloride 102, bicarb 21, BUN of 18, creatinine 2.2, and a glucose of 88. In direct comparison, his creatinine has been as low as 1.7 in November and as high as 2.7 in November as well. His A1c of 5.6. His magnesium is 1.5, phosphorus of 4.5, and his CPK of 318. Troponins on two separate occasions both are negative. ProBNP is greater than 35,000. Total cholesterol 140, LDL of 120, and HDL of 25. B12 was 474. TSH of 2.16. Tox screen was negative. At this time, his urine shows 15 to 20 rbc's and no wbc's. Stool for occult blood last time was negative. EKG is currently unremarkable. Echocardiogram at this time has been interpreted as showing ejection fraction of 45% on December 07, 2018. He has [id number] mitral regurgitation, tricuspid regurgitation, PA pressure of 55%, global hypokinesis, and large pleural effusion is noted. IVC and mitral inflow restrictive pattern grade 3. Venous duplex study of the lower extremities was performed that showed negative for deep venous thrombosis and a chest x-ray was interpreted by the radiologist small effusion. ASSESSMENT: 1. Chronic left ventricular systolic dysfunction. 2. Combined systolic and diastolic heart failure. 3. Chronic renal insufficiency. 4. Diabetes mellitus. 5. Hypertension, poorly controlled. 6. Electrolyte abnormalities. 7. Anemia. PLAN: This patient was seen in cardiac consultation. The patient's hydralazine should be increased and he should be started on some nonsteroidal as well and Norvasc should be continued. Diuretic should be switched over to oral Lasix probably and his blood pressure needs to be more tightly controlled as well. fluid restriction discussed with the patient and because of insufficient invasive treatment, myocardial perfusion imaging, not clear if he has ever had that done since he has been hospitalized at several different places. we have checked the [facility] and there is no records of his admission at [facility]. Gabe Alarcon M.D. DR: CARLOS JOB#: [id number] CC:
--- NOTE | 2019-01-02 08:28 | Cardiology Report ---
APPROVED REPORT EKG Measurement Heart [id number] Normal sinus rhythm Possible Left atrial enlargement Cannot rule out Anterior infarct, age undetermined Abnormal ECG
--- NOTE | 2019-01-02 09:47 | Discharge Summary ---
Discharge Summary Discharge Summary _ DATE OF ADMISSION: 12/30/2018 DATE OF DISCHARGE: 01/01/2019 DISCHARGED BY: Dr Hay REASON FOR ADMISSION: 53 years old male with past medical history of congestive heart failure, coronary artery disease, diabetes mellitus, hypertension, hyperlipidemia, presented with complaint of shortness of breath. The last ejection fraction 45%. Patient was noncompliant with Lasix. Patient reported being progressively more short of breath along with lower extremity edema. He denied chest pain. He denied any syncopal episode. No abdominal pain vomiting or diarrhea. Patient continued to smoke but denies history of COPD patient was not on an inhaler or steroids. Upon evaluation blood pressure was elevated 184/127 patient required 100% nonrebreathing mask to achieve appropriate pulse oximetry. Laboratory work-up revealed no leukocytosis hemoglobin 12.9 hematocrit 38.3. Platelet count 564. Sodium 126 potassium 4.4. BUN 16, creatinine one-point glucose 111. AST 48 ALT 23. Troponin 0 0.026. proBNP 18602. Albumin 2.8 EKG reveals sinus tachycardia no acute ischemic changes occasional PVC. Chest x -ray revealed cardiomegaly. Bilateral interstitial and airspace infiltrates versus edema most likely on the basis of congestive heart failure. Bilateral pneumonia was also possible. Suspected small bilateral pleural effusion. Venous duplex bilateral lower extremity revealed no evidence of acute DVT. Patient subsequently admitted for further management CONSULTANTS: aquatics specialist Dr. Alarcon pulmonary Dr. Carranza defensive line coach Dr. Marlow [facility] COURSE: Patient admitted to telemetry floor. Spray Machine Tender , defensive line coach and janitor and cleaner closely followed. Patient started on diuresis with close monitoring of volumes and cardiorenal parameters. Guideline directed medical therapy for congestive heart failure provided as per aquatics specialist with beta-jojo, hydralazine, isosorbide and diuretics. No KEILY/ ARB given renal failure. Blood pressure was managed with multiply antihypertensive medications, including calcium channel jojo , hydralazine , beta-jojo, diuretic and isosorbide. Blood pressure improved . Sodium and fluid restriction instituted. Last echocardiogram in November 2018revealed ejection fraction of 45% with mild left ventricular hypertrophy. Mitral inflow indicated increased left atrial pressure grade 3 suggestive restrictive pattern. Mild to moderate mitral and tricuspid regurgitation. Right ventricular systolic pressure of 55 consistent with moderate pulmonary hypertension. Spray Machine Tender closely followed. Patient started on diuresis. Supplemental oxygen provided and titrated to keep pulse oximetry above 92%. Pulmonary toilet with bronchodilator provided. Patient was counseled on smoking cessation. Patient declined nicotine patch. Cardiopulmonary Technician followed. Hyponatremia work-up initiated. Patient received 3% saline solution and diuresis. Prior to discharge sodium 136 Ultrasound of kidney was done on previous admission along with 2D echo. TSH within normal limits. Lipid panel stable . DVT prophylaxis provided. Hemoglobin and hematocrit were closely monitored and remained at baseline. Bowel regimen instituted. Patient clinically stabilized and was ready for discharge home. Encourage compliance with medication regimen. FINAL DIAGNOSES: Chronic left ventricular systolic dysfunction Combined systolic and diastolic heart failure Cardiomyopathy/ ejection fraction 45% Pulmonary edema Chronic renal insufficiency Diabetes mellitus Diabetic nephropathy Hypertension poorly controlled with initial hypertensive urgency Hypertensive heart disease Electrolyte abnormality Anemia DISCHARGE MEDICATIONS: See Medication Reconciliation list. DISCHARGE INSTRUCTIONS: Patient was discharged home. Follow up with primary care provider in one week. I have been assigned to dictate discharge summary for this account. I was not involved in the patient's management. Lucia Roldan NP Jan 02, 2019 09:47
== END 2019-01-01 15:55 | disposition home or self-care (01) | DRG 199 ==
LOC: EDBD 18:38 → EMR 18:50 → 2E 21:50 → EDBEDREQ 22:29 → EDBEDREQSVC 22:29 → EDBEDREQ 22:43
DX: I16.0 Hypertensive urgency (principal); I13.0 Hypertensive heart and chronic kidney disease with heart failure and stage 1 through stage 4 chronic kidney disease, or unspecified chronic kidney disease; N18.9 Chronic kidney disease, unspecified; E87.1 Hypo-osmolality and hyponatremia; I50.42 Chronic combined systolic (congestive) and diastolic (congestive) heart failure; Z79.4 Long term (current) use of insulin; Z88.8 Allergy status to other drugs, medicaments and biological substances; I25.10 Atherosclerotic heart disease of native coronary artery without angina pectoris; I42.9 Cardiomyopathy, unspecified; E11.22 Type 2 diabetes mellitus with diabetic chronic kidney disease; E87.8 Other disorders of electrolyte and fluid balance, not elsewhere classified; D64.9 Anemia, unspecified; Z86.718 Personal history of other venous thrombosis and embolism; Z86.19 Personal history of other infectious and parasitic diseases; F17.200 Nicotine dependence, unspecified, uncomplicated; F14.11 Cocaine abuse, in remission; I27.20 Pulmonary hypertension, unspecified
CPT/HCPCS: 36415; 71045; 80053; 80061; 80307; 81001; 82140; 82550; 82607; 82728; 82746; 82962; 82977; 83036; 83540; 83550; 83735; 83880; 83930; 84100; 84439; 84443; 84481; 84484; 84550; 85025; 86140; 93005; 93970; 94640; 96374; 99285

== ENCOUNTER 2019-04-16 18:17 | Inpatient (IN) | payer MEDICAID ==
[~2019-04-16] VITALS: Ht 175.3 cm; Wt 77.1 kg
[~2019-04-16 18:17] MED LIST changes: +COREG12.5 MG ORAL; +FUROSEMIDE40 MG ORAL
[2019-04-16] MEDS ORDERED: POTASSIUM99 M3 PO (18:19)
[2019-04-16 18:23] VITALS: BP 161/111
--- NOTE | 2019-04-16 18:23 | NUR ---
ED Nurse Note: Pt brought in by ambulance from home due to respiratory distress x 1 week. Pt ran out of his lasix medication x 2 weeks. Noted SOB at rest, distention of abdomen and BLE pitting edema. pt states his abdomen ''feels tight''. AAO x4, follows commands.
--- NOTE | 2019-04-16 18:39 | NUR ---
ED Nurse Note: Collected blood specimen then sent. ophthalmic technician sylvia at the bed side for CXR.
[2019-04-16 18:52] LABS: BASOPHILS % (AUTO) 1.6 % (0.0-2.0); EOSINOPHILS % (AUTO) 1.7 % (0.0-3.0); HEMATOCRIT 39.8 % (42.0-52.0); HEMOGLOBIN 12.6 G/DL (14.2-18.0); LYMPHOCYTES % (AUTO) 22.4 % (20.0-45.0); MEAN CORPUSCULAR VOLUME 87 FL (80-99); MONOCYTES % (AUTO) 3.9 % (1.0-10.0); NEUTROPHILS % (AUTO) 70.5 % (45.0-75.0); PLATELET COUNT 335 K/UL (150-450); RED CELL DISTRIBUTION WIDTH 12.6 % (11.6-14.8)
[2019-04-16 19:11] LABS: ANION GAP 12 mmol/L (5-15); BLOOD UREA NITROGEN 19 mg/dL (7-18); CALCIUM 8.8 MG/DL (8.5-10.1); CARBON DIOXIDE 20 MMOL/L (21-32); CHLORIDE 99 MMOL/L (98-107); CREATININE 2.4 MG/DL (0.55-1.30); POTASSIUM 3.8 MMOL/L (3.5-5.1); SODIUM 131 MMOL/L (136-145)
--- NOTE | 2019-04-16 19:11 | NUR ---
HAND-OFF: Report given to Page SEVERINO.
[2019-04-16 19:22] LABS: ALANINE AMINOTRANSFERASE 39 U/L (12-78); ALBUMIN 2.3 G/DL (3.4-5.0); ALBUMIN/GLOBULIN RATIO 0.4 (1.0-2.7); ALKALINE PHOSPHATASE 98 U/L (46-116); ASPARTATE AMINO TRANSFERASE 64 U/L (15-37); BILIRUBIN,TOTAL 0.4 MG/DL (0.2-1.0)
--- NOTE | 2019-04-16 20:04 | Emergency Room Report ---
History of Present Illness General Chief Complaint: Dyspnea/Respdistress Source: Patient, Medical Record Present Illness HPI 53-year-old male presents ED duration. Brought in by EMS from home. Complaining of shortness of breath and leg swelling x1 week. History of CHF. States that he ran out of Lasix. States he was trying to get an appointment with his PMD but was unable to do so. Denies chest pain. Denies cough. Denies fevers or chills. No other aggravating relieving factors. Denies any other associated symptoms Allergies: Coded Allergies: LITHIUM (Verified Allergy, Unknown, 07/23/13) Patient History Past Medical History: DM, HTN, CHF Social History: Denies: smoking, alcohol use, drug use Immunizations: UTD Reviewed Nursing Documentation: PMH: Agreed; PSxH: Agreed Nursing Documentation-PMH Past Medical History: No History, Except For Hx Cardiac Problems: Yes - CHF Hx Hypertension: Yes Hx Diabetes: Yes Hx Cancer: No Hx Gastrointestinal Problems: No Hx Neurological Problems: No Hx Cerebrovascular Accident: Yes Review of Systems All Other Systems: negative except mentioned in HPI Physical Exam Vital Signs Date Time Temp Pulse Resp B/P (MAP) Pulse Ox O2 Delivery O2 Flow Rate FiO2 04/16/19 18:15 97.9 102 18 169/115 (133) 95 Room Air Sp02 EP Interpretation: reviewed, normal General Appearance: alert, GCS 15, non-toxic, mild distress Head: normocephalic, atraumatic Eyes: bilateral eye normal inspection, bilateral eye PERRL ENT: hearing grossly normal, normal pharynx, no angioedema, normal voice Neck: full range of motion, supple/symm/no masses Respiratory: chest non-tender, crackles, speaking full sentences Cardiovascular #1: regular rate, rhythm, no edema Cardiovascular #2: 2+ carotid (R), 2+ carotid (L), 2+ radial (R), 2+ radial (L) , 2+ dorsalis pedis (R), 2+ dorsalis pedis (L) Gastrointestinal: normal bowel sounds, non tender, soft, non-distended, no guarding, no rebound Rectal: deferred Genitourinary: normal inspection, no CVA tenderness Musculoskeletal: back normal, normal range of motion, gait/station normal, non- tender, swelling - 1+ pitting edema Neurologic: alert, motor strength/tone normal, oriented x3, sensory intact, responsive, speech normal Psychiatric: judgement/insight normal, memory normal, mood/affect normal, no suicidal/homicidal ideation Reflexes: 3+ bicep (R), 3+ bicep (L), 3+ tricep (R), 3+ tricep (L), 3+ knee (R) , 3+ knee (L) Skin: no rash Lymphatic: no adenopathy Procedures Critical Care Time Critical Care Time i. I feel this is a highly complex case requiring extensive working including EKG/Rhythm strip, Xray/CT/US, Blood/urine lab work, repeat exams while in ED, and administration of strong opiates/narcotics for pain control, admission to hospital or close patient follow up. Total time: 45min bedside evaluation and treatment excludes procedures (EKG). Reason for critical care: respiratory distress, CHF Possible complications: hypotension, hypertension, AK, shock, arrhythmias, metabolic acidosis, end organ damage, respiratory failure. Interventions: labs, ekg, chest x-ray, Lasix, aspirin, cardiac monitoring Course: Patient complaining of shortness of breath. Somewhat in distress. Leg swelling. Chest x-ray shows cardiomegaly and interstitial congestion. EKGnormal sinus rhythm no acute ischemic changes interpreted by me. Labs show elevated BUN/creatinine. Troponin 0.08. BNP elevated. Given aspirin. Given Lasix. Observed on friction welding machine operator. Respiratory status improved Consultations: nursing staff, EMS, family Performed by: Dr Mchugh Tolerated well condition = serious j. because of unstable vital signs this patient had a condition that could potentially threaten life or limb. I feel this is a critical patient who required my full attention while patient was considered critical. Total Critical Care Time excluding procedures was greater than 35 minutes Medical Decision Making Diagnostic Impression: Primary Impression: Congestive heart failure (CHF) Qualified Codes: I50.9 - Heart failure, unspecified Additional Impressions: Respiratory distress Pulmonary edema Qualified Codes: J81.0 - Acute pulmonary edema ER Course Hospital Course 53-year-old male presents ED complaining of shortness of breath, leg swelling x2 weeks Differential diagnoses include: AK/unstable angina, contusion, muscle strain, PTX, rib fracture Clinical course Patient placed on stretcher. on friction welding machine operator. After initial history and physical I ordered labs, EKG, chest x-ray, labs reviewed- no leukocytosis, hemoglobin/hematocrit stable, creatinine elevated, troponins 0.08, BNP elevated EKG - NSR no acute ischemic changes interpreted by me Chest x-ray cardiomegaly, left-sided effusion ASA given. Lasix given. Observed on friction welding machine operator with respiratory status improved. Case discussed with Dr. Hay and he agreed to accept the patient to his service for further care and support I. I feel this is a highly complex case requiring extensive working including EKG/Rhythm strip, Xray/CT/US, Blood/urine lab work, repeat exams while in ED, and administration of strong opiates/narcotics for pain control, admission to hospital or close patient follow up. Diagnosis - CHF exacerbation, respiratory distress, pulmonary edema admitted to telemetry in serious condition Labs Test 04/16/19 18:35 White Blood Count 6.0 K/UL (4.8-10.8) Red Blood Count 4.60 M/UL (4.70-6.10) Hemoglobin 12.6 G/DL (14.2-18.0) Hematocrit 39.8 % (42.0-52.0) Mean Corpuscular Volume 87 FL (80-99) Mean Corpuscular Hemoglobin 27.5 PG (27.0-31.0) Mean Corpuscular Hemoglobin Concent 31.7 G/DL (32.0-36.0) Red Cell Distribution Width 12.6 % (11.6-14.8) Platelet Count 335 K/UL (150-450) Mean Platelet Volume 7.5 FL (6.5-10.1) Neutrophils (%) (Auto) 70.5 % (45.0-75.0) Lymphocytes (%) (Auto) 22.4 % (20.0-45.0) Monocytes (%) (Auto) 3.9 % (1.0-10.0) Eosinophils (%) (Auto) 1.7 % (0.0-3.0) Basophils (%) (Auto) 1.6 % (0.0-2.0) Sodium Level 131 MMOL/L (136-145) Potassium Level 3.8 MMOL/L (3.5-5.1) Chloride Level 99 MMOL/L (98-107) Carbon Dioxide Level 20 MMOL/L (21-32) Anion Gap 12 mmol/L (5-15) Blood Urea Nitrogen 19 mg/dL (7-18) Creatinine 2.4 MG/DL (0.55-1.30) Estimat Glomerular Filtration Rate 34.7 mL/min (>60) Glucose Level 105 MG/DL (74-106) Calcium Level 8.8 MG/DL (8.5-10.1) Total Bilirubin 0.4 MG/DL (0.2-1.0) Aspartate Amino Transf (AST/SGOT) 64 U/L (15-37) Alanine Aminotransferase (ALT/SGPT) 39 U/L (12-78) Alkaline Phosphatase 98 U/L (46-116) Troponin I 0.080 ng/mL (0.000-0.056) Pro-B-Type Natriuretic Peptide 57747 pg/mL (0-125) Total Protein 7.6 G/DL (6.4-8.2) Albumin 2.3 G/DL (3.4-5.0) Globulin 5.3 g/dL Albumin/Globulin Ratio 0.4 (1.0-2.7) EKG Diagnostic Results Rate: normal Rhythm: NSR ST Segments: no acute changes ASA given to the pt in ED: Yes Rhythm Strip Diag. Results EP Interpretation: yes Rhythm: NSR, no PVC's, no ectopy Chest X-Ray Diagnostic Results Chest X-Ray Diagnostic Results : Chest X-Ray Ordered: Yes # of Views/Limited/Complete: 1 View Indication: Shortness of Breath EP Interpretation: Yes Interpretation: no pneumothorax, other - cardiomegaly. interstitial congestion. effusion. CHF Impression: Other - pleural effusion/CHF Electronically Signed by: Electronically signed by Christian Mchugh MD Last Vital Signs Date Time Temp Pulse Resp B/P (MAP) Pulse Ox O2 Delivery O2 Flow Rate FiO2 04/16/19 18:23 97.9 90 16 161/111 98 Room Air Status: improved Disposition: ADMITTED INPATIENT Condition: Serious Referrals: NON PHYSICIAN (PCP) Christian Mchugh MD Apr 16, 2019 20:04
--- NOTE | 2019-04-16 21:00 | NUR ---
ED Nurse Note: Pt given a sandwhich and juice, pt now resting in bed with eyes closed, non-labored breathing. Will continued to monitor
[2019-04-16] MEDS ORDERED: Morphine Sulfate 4mg/ml Inj (IV USE ONLY) IVP PRN (22:15)
--- NOTE | 2019-04-16 23:30 | NUR ---
TRANSFER TO FLOOR: Patient transferred to as ordered, per Dr Allen. Report given to MAYCOL Fried . Belongings and medications given to . Family and or S/O informed of transfer.
--- NOTE | 2019-04-17 00:20 | NUR ---
I received the patient from ED from Page SEVERINO. I clarified with ED Admitting that the patient's primary physician is Dr Hay and not Dr Allen. They verified that dr Hay is the admitting physician. I reviewed the patient home medications with the patient. i am awaiting callback from Dr Hay at this time.
[2019-04-17 04:00] VITALS: BP 144/90
--- NOTE | 2019-04-17 05:41 | NUR ---
I paged Dr Hay Regarding patient's elevated blood pressure at this time 162/103 HR 80 for prn bp medication. awaiting callback at this time.
[2019-04-17 05:42] VITALS: BP 162/103
--- NOTE | 2019-04-17 06:40 | NUR ---
I have called to ED - Dr Mims to attempt to get Bridging order for prn BP med for pt. Dr Mims is no longer on duty at this time. Still awaiting Dr Hay to call back - patient is asymptomatic. Stable. Resting in bed. no distress but BP is still elevated on patient. Will endorse to day nurse to await his orders for this patient. I have also notified my Charge nurse Gabriela Wiley of the matter. She is aware.
[2019-04-17] MEDS: HydrALAZINE 25mg tab ORAL SCH ×3 (07:31→17:40)
--- NOTE | 2019-04-17 07:44 | NUR ---
I have endorsed the patient and admission orders to Mariela RN. Patient stable. no distress. Eating breakfast in bed. Awaiting admitting orders from Dr. Hay at this point to find out the plan. I also endorsed to Mariela the elevated BP which she can recheck later. We did bedside report and I said goodbye and thank you to the patient.
--- NOTE | 2019-04-17 07:45 | NUR ---
NURSE NOTES: Received report from Leny/MAYCOL, Patient is awake and alert, siting up on bed, eating breakfast. On room air, No acute distress/SOB noted. Breathing unlabored and even. Able to make needs known, Jenn pain at this time. IV on Right hand Patent, no bleeding or infiltration noted. Bed in low position and locked, bed alarm engaged, Side rails up x3. call light within reach, Encouraged to use call light when needed. Will continue plan of care.
[2019-04-17 08:55] VITALS: BP 159/102
--- NOTE | 2019-04-17 10:08 | NUR ---
*-* NO INSURANCE INFORMATION IN THE BAR UNABLE TO SEND CLINICALS OR REVIEWS *-*
[2019-04-17 12:00] VITALS: BP 149/107
--- NOTE | 2019-04-17 12:31 | NUR ---
CASE MANAGEMENT:REVIEW 53 YR OLD MALE BIBA FROM HOME CC: SOB. ABDOMINAL DISTENTION. BLE PITTING EDEMA SI: CHF. RESPIRATORY DISTRESS. PULMONARY EDEMA 97.8 102 18 169/115 95% ON RA H/H-12.6/39.8 NA-131 BUN+19 CR+2.4 TROPONIN(+)0.080 IS: IV LASIX IV HYDRALAZINE ASA PO ASA PO CHEST XRAY : TO TELEMETRY
--- NOTE | 2019-04-17 13:20 | NUR ---
*-* INSURANCE *-* ALL CLINICALS AND REVIEWS HAVE BEEN FAXED TO: MARELY Sanchez; [phone] F: [phone] Addendum: 04/17/19 at 1515 by SABINA RAMIREZ LVN LVN [facility] T:[phone] SPOKE WITH OLIVIA REF# [id number]
--- NOTE | 2019-04-17 14:30 | Consultation ---
DATE OF CONSULTATION: 04/17/2019 PULMONARY CONSULTATION CONSULTING PHYSICIAN: Tyrese eHrman M.D. HISTORY OF PRESENT ILLNESS: This is a 53-year-old male who came to the hospital with shortness of breath. He also reported neck swelling. The patient reports a history of congestive heart failure and states that he his home medications. He denied chest pain, any cough or phlegm. No fevers. PAST MEDICAL HISTORY: Diabetes mellitus, hypertension, CHF. ALLERGIES: [place]. HOME MEDICATIONS: Reviewed and reconciled in the chart. SURGERIES: None reported. PHYSICAL EXAMINATION: GENERAL: Reveals a 53-year-old male. HEENT: Unremarkable. LUNGS: Decreased breath sounds bilaterally with normal heart sounds. ABDOMEN: Soft. EXTREMITIES: There is 2+ edema. VITAL SIGNS: Blood pressure is 169/110, respirations are 18, heart rate 102, afebrile, O2 saturation 95% on room air. LABORATORY TESTING: Shows hemoglobin 12.6, otherwise normal CBC. Creatinine 2.4. Troponin 0.08. X-ray chest is compatible with pulmonary edema. This is a small left effusion as well. IMPRESSION: 1. Pulmonary edema. 2. CHF. 3. Hypertension. 4. Diabetes mellitus. DISCUSSION: Continue medications. The patient needs increased diuresis. Blood pressure control. We will follow carefully. Tyrese Herman M.D. DR: GOLDIE JOB#: [id number] CC:
--- NOTE | 2019-04-17 14:38 | Cardiac Electrophysiology PN ---
Subjective Subjective CHF with EF <35% more than 6 months Will get Auth for ICD implant [id number] Objective Last 24 Hour Vital Signs Date Time Temp Pulse Resp B/P (MAP) Pulse Ox O2 Delivery O2 Flow Rate FiO2 04/17/19 12:06 149/107 04/17/19 12:00 94 04/17/19 12:00 98.2 97 20 149/107 (121) 97 04/17/19 09:00 Room Air 04/17/19 08:55 98.1 99 20 159/102 (121) 96 04/17/19 08:00 95 04/17/19 07:31 162/103 04/17/19 05:42 80 18 162/103 (122) 95 04/17/19 04:00 97.9 94 20 144/90 (108) 98 04/17/19 04:00 89 04/17/19 01:39 Room Air 04/16/19 23:30 97.9 90 16 159/103 98 Room Air 04/16/19 21:22 159/103 04/16/19 18:23 97.9 90 16 161/111 98 Room Air 04/16/19 18:23 90 16 Room Air 04/16/19 18:15 97.9 102 18 169/115 (133) 95 Room Air Intake and Output 04/16/19 04/17/19 19:00 07:00 # Voids 2 Laboratory Tests Test 04/16/19 18:35 White Blood Count 6.0 K/UL (4.8-10.8) Red Blood Count 4.60 M/UL (4.70-6.10) L Hemoglobin 12.6 G/DL (14.2-18.0) L Hematocrit 39.8 % (42.0-52.0) L Mean Corpuscular Volume 87 FL (80-99) Mean Corpuscular Hemoglobin 27.5 PG (27.0-31.0) Mean Corpuscular Hemoglobin Concent 31.7 G/DL (32.0-36.0) L Red Cell Distribution Width 12.6 % (11.6-14.8) Platelet Count 335 K/UL (150-450) Mean Platelet Volume 7.5 FL (6.5-10.1) Neutrophils (%) (Auto) 70.5 % (45.0-75.0) Lymphocytes (%) (Auto) 22.4 % (20.0-45.0) Monocytes (%) (Auto) 3.9 % (1.0-10.0) Eosinophils (%) (Auto) 1.7 % (0.0-3.0) Basophils (%) (Auto) 1.6 % (0.0-2.0) Sodium Level 131 MMOL/L (136-145) L Potassium Level 3.8 MMOL/L (3.5-5.1) Chloride Level 99 MMOL/L (98-107) Carbon Dioxide Level 20 MMOL/L (21-32) L Anion Gap 12 mmol/L (5-15) Blood Urea Nitrogen 19 mg/dL (7-18) H Creatinine 2.4 MG/DL (0.55-1.30) H Estimat Glomerular Filtration Rate 34.7 mL/min (>60) Glucose Level 105 MG/DL (74-106) Calcium Level 8.8 MG/DL (8.5-10.1) Total Bilirubin 0.4 MG/DL (0.2-1.0) Aspartate Amino Transf (AST/SGOT) 64 U/L (15-37) H Alanine Aminotransferase (ALT/SGPT) 39 U/L (12-78) Alkaline Phosphatase 98 U/L (46-116) Troponin I 0.080 ng/mL (0.000-0.056) Pro-B-Type Natriuretic Peptide 08292 pg/mL (0-125) H Total Protein 7.6 G/DL (6.4-8.2) Albumin 2.3 G/DL (3.4-5.0) L Globulin 5.3 g/dL Albumin/Globulin Ratio 0.4 (1.0-2.7) L Shreyas Palacio MD Apr 17, 2019 14:38
--- NOTE | 2019-04-17 14:57 | NUR ---
*-* DISCHARGE PLANNING *-* PATIENT HAS BEEN REFERRED TO: [facility] P: [phone] F: [phone]
--- NOTE | 2019-04-17 15:08 | NUR ---
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
--- NOTE | 2019-04-17 15:30 | Consultation ---
DATE OF CONSULTATION: 04/17/2019 CONSULTING PHYSICIAN: Lyndon Shaw M.D. REFERRING PHYSICIAN: Can Hay D.O. REASON FOR CONSULTATION: 1. Hyponatremia. 2. CKD, stage 4. 3. Acute kidney injury. HISTORY OF PRESENT ILLNESS: The patient is a 53-year-old gentleman who was admitted through the emergency room overnight for evaluation and care with some shortness of breath and leg swelling. He does have a history of CHF. He states that he ran out of his Lasix at home. Currently, creatinine 2.4, sodium 131. PAST MEDICAL HISTORY: 1. CKD, stage 4. 2. Diabetes. 3. Hypertension. 4. CHF. PAST SURGICAL HISTORY: Noncontributory. ALLERGIES: [place]. SOCIAL HISTORY: No tobacco, alcohol, or illicit drug use. FAMILY HISTORY: Positive for hypertension and diabetes. REVIEW OF SYSTEMS: NEUROLOGIC: The patient denies headache, change in vision, syncope, or presyncopal episode. CARDIOVASCULAR: No current chest pain, palpitations, or angina. PULMONARY: No difficulty breathing, productive cough, or sputum. GASTROINTESTINAL/GENITOURINARY: No change in urinary or bowel habits. No nausea, vomiting, or diarrhea. ENDOCRINOLOGY: No night sweats, fevers, or chills. MUSCULOSKELETAL: The patient feeling weak, tired, and fatigued. PHYSICAL EXAMINATION: VITAL SIGNS: Blood pressure 159/102, respiratory 20, pulse 99, temperature 98.1, and 96% oxygen saturation on room air. GENERAL: The patient is awake, alert, not in distress. HEENT: Extraocular muscles intact. No lymphadenopathy noted. CARDIOVASCULAR: S1, S2. No rubs or gallops. PULMONARY: Mild upper rhonchi with fair air movement. ABDOMEN: Nondistended and nontender. EXTREMITIES: Trace edema bilaterally ASSESSMENT AND PLAN: 1. Acute kidney injury on chronic kidney disease, stage IV. Creatinine is currently within baseline range. At this time, avoiding nephrotoxins. We will defer on further renal investigations. 2. CHF. Continue IV Lasix for the time being. We will defer to Cardiology. 3. Hypertension. We will adjust antihypertensive medications and add Coreg. 4. Hyponatremia. Sodium 131. We will place on p.o. fluid restriction. Avoid thiazide diuretics. Lyndon Shaw MD DR: LUIS JOB#: [id number] CC:
--- NOTE | 2019-04-17 15:30 | History and Physical Report ---
DATE OF ADMISSION: 04/16/2019 DATE AND TIME SEEN: 04/17/2019 at 8 a.m. CONSULTANTS: 1. Tyrese Herman M.D. 2. Shreyas Palacio M.D. CHIEF COMPLAINT: CHF and shortness of breath. BRIEF HISTORY: The patient is a 53-year-old male, who lives at home with history of CHF. Apparently, he had been short of breath for about a week, getting worse. He ran out of medications about two weeks ago with inability to fill them, came to [place], diagnosed with above, CHF exacerbation and shortness of breath, admitted to telemetry for further care. Currently, calm in bed, slight short of breath. No complaint. REVIEW OF SYSTEMS: No chest pain. Slight short of breath. No nausea, vomiting, or diarrhea. PAST MEDICAL HISTORY: CHF, diabetes, and hypertension. PAST SURGICAL HISTORY: None. ALLERGIES: [place]. MEDICATIONS: Include furosemide, morphine sulfate, Zofran, Tylenol, hydralazine, and aspirin. SOCIAL HISTORY: Positive smoking. No alcohol. No intravenous drug abuse. FAMILY HISTORY: Noncontributory. PHYSICAL EXAMINATION: GENERAL: Calm in bed, oriented x3, in no acute distress. VITAL SIGNS: Temperature 97 degrees, pulse 80, respirations 18, and blood pressure 162/103. CARDIOVASCULAR: No murmurs. LUNGS: Poor air exchange. ABDOMEN: Bowel sounds distant. EXTREMITIES: No cyanosis, clubbing, or edema. NEUROLOGIC: The patient moves all extremities, slightly weak. LABORATORY AND DIAGNOSTIC DATA: Labs at this time show hemoglobin and hematocrit 12.6/39, otherwise CBC is normal. Sodium 131, CO2 20, BUN and creatinine is 19/2.4, renal insufficiency. Troponin 0.08. BNP is 23,343. Albumin 2.3. ASSESSMENT: 1. Shortness of breath. 2. Congestive heart failure exacerbation. 3. Renal insufficiency. 4. Diabetes. 5. Hypertension. 6. Anemia. 7. Malnutrition. PLAN: 1. O2 and pulmonary treatment. 2. Blood pressure and blood sugar control. 3. Dietary followup. 4. Nephrology evaluation. 5. CBC and BMP in the morning. Can Hay D.O. DR: KATHERYN JOB#: [id number] CC:
--- NOTE | 2019-04-17 15:34 | NUR ---
LAB ASSOCIATE NOTE SW received a notification for social group worker concern. SW met w/ pt and assessed his needs/concern. Pt presents as A&O4x and cooperative. Pt resides alone at [address] [address], [place] [address]. Pt is single, never and has no children. PT does not have any family members in contact. No emergency contact provided. Pt receives SSI appx$800/mo. PT uses tobacco and denies substance abuse. Pt denies hx of mental illness/SI/HI. Pt is ambulatory w/o DMEs and independent w/ ADLs. Pt reports he wants to change his PCP and also shares the concern of his transportation to medical appointments. Pt states he can go to his PCP by himself but he has been unable to go to the women nurse's office referred by his PCP. SW explored several options of transportation w/ pt. However, pt states he is not able to afford public transportation. SW encouraged pt to discuss the possibility of maximizing his SSI income w/ Social Security Administration. ROLAND also encouraged pt to contact [facility] [phone], [facility] [phone] and [facility] [phone] to explore transportation options. Pt verbalized understanding. Pt did not share further concern/needs. SW to F/U as needed. Signed: 04/17/19 at 1541 by ANTELMO WATKINS <Co-Signature Required>
[2019-04-17 16:00] VITALS: BP 148/103
--- NOTE | 2019-04-17 16:29 | Diagnostic Imaging Report ---
Indication: Dyspnea Comparison: 01/01/2019 A single view chest radiograph was obtained. Findings: The heart is enlarged. Increased pulmonary vascularity demonstrated with some airspace disease at the left lung base and a possible pleural effusion on the left. IMPRESSION: Slightly worsening pulmonary vascular congestion. Left pleural effusion suspected
--- NOTE | 2019-04-17 17:30 | Consultation ---
DATE OF CONSULTATION: 04/17/2019 CARDIOLOGY CONSULTATION CONSULTING PHYSICIAN: Shreyas Palacio M.D. REFERRING PHYSICIAN: Can Hay D.O. REASON FOR CONSULTATION: Exacerbation of congestive heart failure. HISTORY OF PRESENT ILLNESS: The patient is a 53-year-old gentleman that I am quite familiar from previous admission in November 2018. The patient has history of severe cardiomyopathy, EF of around 30%, history of hypertension, diabetes, chronic kidney disease who was brought in by paramedics from home for increased shortness of breath and lower extremity edema. The patient apparently ran out of [place] and was trying to get appointment of primary care physician, but he could not. The patient however was admitted and a Cardiology consultation was obtained for further evaluation and management. REVIEW OF SYSTEMS: Negative other than what was mentioned in the history of present illness. PAST MEDICAL HISTORY: As mentioned above. FAMILY HISTORY: Noncontributory. SOCIAL HISTORY: He denies smoking or drinking alcohol. He denies using drugs ever. PHYSICAL EXAMINATION: VITAL SIGNS: Show blood pressure of 149/107, pulse is 97, respirations 18, temperature 98.2. HEAD AND NECK: Positive JVD. LUNGS: Decreased breath sounds. CARDIOVASCULAR: Regular S1 and S2 with no gallop or murmur. ABDOMEN: Soft. EXTREMITIES: 1+ pitting edema. LABORATORY DATA: Sodium 131, potassium 3.8, BUN of 19, creatinine 2.4, glucose of 105. Troponin is 0.080. BNP 22,343. White count is 6, hemoglobin 12.2, hematocrit 39.8, and platelet count 335. ASSESSMENT AND PLAN: 1. Severe dilated cardiomyopathy. The patient has no prior myocardial infarction. His EKG also is not suggest any prior myocardial infarction. The patient has already been on medical therapy for 3 months. The patient would need prophylactic defibrillator implantation in view of high risk of sudden cardiac . We will try to get authorization for that. In the meantime, treat the patient with Lasix 40 mg IV b.i.d., hydralazine 25 mg b.i.d., and Isordil 20 mg b.i.d. Avoid KEILY inhibitor in view of the patient's renal failure. In view of QRS duration of only 94 milliseconds, the patient would not benefit from cardiac resynchronization therapy. 2. Hypertension. Continue Lasix, hydralazine, and Isordil. I will add Coreg to his medical regimen as well in view of his cardiomyopathy. 3. Renal failure. Creatinine of 2.4. 4. Troponin leak due to heart failure as well as renal failure. Repeat troponin as well. 5. Hyponatremia. Keep the patient on diuretic at this time. Thank you very much for allowing me to participate in the care of this patient. Please do not hesitate to contact me for any questions regarding my evaluation. Shreyas Palacio M.D. DR: DARRON JOB#: [id number] CC:
--- NOTE | 2019-04-17 19:30 | NUR ---
Received pt. from nurse Mariela RN. Patient resting on bed.Denies any discomfort at this time. Made aware of his plan of care and will continue to monitor pt. Bed at its lowest and locked.
--- NOTE | 2019-04-17 19:34 | NUR ---
HAND-OFF: Report given to Navneet/RN, Patient is in stable condition. Endorsed plan of care.
[2019-04-17 20:00] VITALS: BP 161/98
[2019-04-17] MEDS ORDERED: METFORMIN HCL500 M1 ORAL (20:18)
[2019-04-17] MEDS ORDERED: AMLODIPINE BESY10 MG ORAL (20:18)
[2019-04-17] MEDS ORDERED: HYDROCHLOROTHIA25 MG ORAL (20:18)
[2019-04-17] MEDS ORDERED: POTASSIUM CHLO20 ME3 PO (20:18)
[2019-04-17] MEDS: Heparin 5000 units/ml inj SUBQ SCH (21:07)
--- NOTE | 2019-04-17 23:00 | NUR ---
HAND-OFF: Report given to nurse Kenyatta SEVERINO.Endorsed for follow up of care. NAD noted..
[2019-04-18] VITALS (7 sets, daily range): BP systolic 144–161; BP diastolic 90–101
[2019-04-18 04:44] LABS: BASOPHILS % (AUTO) 0.5 % (0.0-2.0); HEMATOCRIT 33.4 % (42.0-52.0); LYMPHOCYTES % (AUTO) 23.7 % (20.0-45.0); MEAN CORPUSCULAR VOLUME 85 FL (80-99); MONOCYTES % (AUTO) 10.8 % (1.0-10.0); NEUTROPHILS % (AUTO) 62.9 % (45.0-75.0); PLATELET COUNT 320 K/UL (150-450); RED BLOOD COUNT 3.91 M/UL (4.70-6.10); WHITE BLOOD COUNT 5.6 K/UL (4.8-10.8)
[2019-04-18 05:05] LABS: ANION GAP 8 mmol/L (5-15); BLOOD UREA NITROGEN 24 mg/dL (7-18); CALCIUM 7.9 MG/DL (8.5-10.1); CARBON DIOXIDE 23 MMOL/L (21-32); CHLORIDE 106 MMOL/L (98-107); CHOLESTEROL 147 MG/DL (< 200); HDL CHOLESTEROL 46 MG/DL (40-60); POTASSIUM 3.3 MMOL/L (3.5-5.1); SODIUM 137 MMOL/L (136-145); TRIGLYCERIDES 56 MG/DL (30-150)
--- NOTE | 2019-04-18 05:24 | NUR ---
NURSE NOTES: Called and left a message with Dr. Hay regarding patient's troponin level. Awaiting call back.
--- NOTE | 2019-04-18 07:13 | NUR ---
HAND-OFF: Report given to MAYCOL Sierra. Patient stable. Endorsed critical lab values.
--- NOTE | 2019-04-18 07:20 | NUR ---
NURSE NOTES: Received report from Kenyatta/RN, Patient is awake and alert, siting up on bed, eating breakfast. On room air, No acute distress/SOB noted. Breathing unlabored and even. Able to make needs known, Jenn pain at this time. IV on Right hand Patent, no bleeding or infiltration noted. Bed in low position and locked, bed alarm engaged, Side rails up x3. call light within reach, Encouraged to use call light when needed. Will continue plan of care.
[2019-04-18] MEDS: HydrALAZINE 25mg tab ORAL SCH ×2 (08:35→17:40)
--- NOTE | 2019-04-18 08:42 | General Progress Note ---
Assessment/Plan Problem List: (1) Malnutrition ICD Codes: E46 - Unspecified protein-calorie malnutrition SNOMED: 62928903 (2) Elevated troponin ICD Codes: R79.89 - Other specified abnormal findings of blood chemistry SNOMED: 087355317, 835440223, 040511913 (3) Renal insufficiency ICD Codes: N28.9 - Disorder of kidney and ureter, unspecified SNOMED: 154235970, 244512441 (4) Anemia ICD Codes: D64.9 - Anemia, unspecified SNOMED: 876409309 (5) Respiratory distress ICD Codes: R06.03 - Acute respiratory distress SNOMED: 603681186 (6) Hypertensive heart disease ICD Codes: I11.9 - Hypertensive heart disease without heart failure SNOMED: 86692478 (7) Congestive heart failure (CHF) ICD Codes: I50.9 - Heart failure, unspecified SNOMED: 75576688 Qualifiers: Qualified Codes: I50.9 - Heart failure, unspecified (8) Diabetes mellitus ICD Codes: E11.9 - Type 2 diabetes mellitus without complications SNOMED: 81270884 Status: stable, progressing Assessment/Plan: o2 pulm tx cardio pul neph f/u cbc bmp am dc plan if clear Subjective Constitutional: Reports: weakness Allergies: Coded Allergies: LITHIUM (Verified Allergy, Unknown, 07/23/13) All Systems: reviewed and negative except above Subjective feeling better Objective Last 24 Hour Vital Signs Date Time Temp Pulse Resp B/P (MAP) Pulse Ox O2 Delivery O2 Flow Rate FiO2 04/18/19 08:00 98.4 92 19 157/100 (119) 96 04/18/19 04:00 98.0 99 18 148/90 (109) 97 04/18/19 04:00 90 04/18/19 00:00 97 04/18/19 00:00 98.8 98 19 159/100 (119) 96 04/17/19 21:05 102 161/98 04/17/19 21:00 Room Air 04/17/19 20:00 98.4 102 20 161/98 (119) 96 04/17/19 20:00 101 04/17/19 17:40 148/103 04/17/19 17:40 148/103 04/17/19 16:00 96 04/17/19 16:00 98.1 103 19 148/103 (118) 96 04/17/19 12:06 149/107 04/17/19 12:00 94 04/17/19 12:00 98.2 97 20 149/107 (121) 97 04/17/19 09:00 Room Air 04/17/19 08:55 98.1 99 20 159/102 (121) 96 Intake and Output 04/17/19 04/18/19 19:00 07:00 Intake Total 840 ml Output Total 400 ml Balance 440 ml Intake Oral 840 ml Output Urine Total 400 ml # Voids 1 2 # Bowel Movements 1 2 Laboratory Tests 04/17/19 18:50: Troponin I 0.082H 04/18/19 03:00: Troponin I 0.086H, White Blood Count 5.6, Red Blood Count 3.91L, Hemoglobin 11.0L, Hematocrit 33.4L, Mean Corpuscular Volume 85, Mean Corpuscular Hemoglobin 28.1, Mean Corpuscular Hemoglobin Concent 32.9, Red Cell Distribution Width 12.0, Platelet Count 320, Mean Platelet Volume 6.1L, Neutrophils (%) (Auto) 62.9, Lymphocytes (%) (Auto) 23.7, Monocytes (%) (Auto) 10.8H, Eosinophils (%) (Auto) 2.0, Basophils (%) (Auto) 0.5, Sodium Level 137, Potassium Level 3.3L, Chloride Level 106, Carbon Dioxide Level 23, Anion Gap 8, Blood Urea Nitrogen 24H, Creatinine 3.0H, Estimat Glomerular Filtration Rate 26.8, Glucose Level 158H, Calcium Level 7.9L, Pro-B-Type Natriuretic Peptide 49340J, Triglycerides Level 56, Cholesterol Level 147, LDL Cholesterol 91, HDL Cholesterol 46, Cholesterol/HDL Ratio 3.2L Height (Feet): 5 Height (Inches): 9.00 Weight (Pounds): 170 General Appearance: alert EENT: normal ENT inspection Neck: normal alignment Cardiovascular: normal peripheral pulses, normal rate, regular rhythm Respiratory/Chest: chest wall non-tender, lungs clear, normal breath sounds Abdomen: normal bowel sounds, non tender, soft Extremities: normal inspection Edema: no edema noted Arm (L), no edema noted Arm (R), no edema noted Leg (L), no edema noted Leg (R), no edema noted Pedal (L), no edema noted Pedal (R), no edema noted Generalized Neurologic: responsive, motor weakness Skin: normal pigmentation, warm/dry Can Hay DO Apr 18, 2019 08:42
[2019-04-18] MEDS: Heparin 5000 units/ml inj SUBQ SCH ×2 (08:45→20:14)
--- NOTE | 2019-04-18 09:19 | NUR ---
*-* INSURANCE *-* ALL CLINICALS AND REVIEWS HAVE BEEN FAXED TO: [facility] [place] P; [phone] F: [phone] [facility] CASE MGMT GROUP T:[phone] SPOKE WITH OLIVIA REF# [id number] Addendum: 04/19/19 at 1236 by ROGELIO KC CM F: [phone] ncm: teagan
--- NOTE | 2019-04-18 10:00 | Nephrology Progress Note ---
Assessment/Plan Status: stable, progressing Assessment/Plan: A/P 1. AMY on CKD 4 Creatinine worsened today. Will hold diuretics 2. CHF. Resting well. Will hold diuretics as Cr up to 3 3. Hypertension. We will adjust antihypertensive medications and add Coreg. 4. Hyponatremia. Resolved. Na up to 137. We will place on p.o. fluid restriction. Avoid thiazide diuretics. Subjective Date patient seen: Apr 18, 2019 Time patient seen: 09:58 ROS Limited/Unobtainable: No Allergies: Coded Allergies: LITHIUM (Verified Allergy, Unknown, 07/23/13) Subjective Patient resting comfortably in no distress Objective Last 24 Hour Vital Signs Date Time Temp Pulse Resp B/P (MAP) Pulse Ox O2 Delivery O2 Flow Rate FiO2 04/18/19 08:36 92 157/100 04/18/19 08:35 157/100 04/18/19 08:35 157/100 04/18/19 08:00 98.4 92 19 157/100 (119) 96 04/18/19 04:00 98.0 99 18 148/90 (109) 97 04/18/19 04:00 90 04/18/19 00:00 97 04/18/19 00:00 98.8 98 19 159/100 (119) 96 04/17/19 21:05 102 161/98 04/17/19 21:00 Room Air 04/17/19 20:00 98.4 102 20 161/98 (119) 96 04/17/19 20:00 101 04/17/19 17:40 148/103 04/17/19 17:40 148/103 04/17/19 16:00 96 04/17/19 16:00 98.1 103 19 148/103 (118) 96 04/17/19 12:06 149/107 04/17/19 12:00 94 04/17/19 12:00 98.2 97 20 149/107 (121) 97 Intake and Output 04/17/19 04/18/19 19:00 07:00 Intake Total 840 ml Output Total 400 ml Balance 440 ml Intake Oral 840 ml Output Urine Total 400 ml # Voids 1 2 # Bowel Movements 1 2 Laboratory Tests 04/17/19 18:50: Troponin I 0.082H 04/18/19 03:00: Troponin I 0.086H, White Blood Count 5.6, Red Blood Count 3.91L, Hemoglobin 11.0L, Hematocrit 33.4L, Mean Corpuscular Volume 85, Mean Corpuscular Hemoglobin 28.1, Mean Corpuscular Hemoglobin Concent 32.9, Red Cell Distribution Width 12.0, Platelet Count 320, Mean Platelet Volume 6.1L, Neutrophils (%) (Auto) 62.9, Lymphocytes (%) (Auto) 23.7, Monocytes (%) (Auto) 10.8H, Eosinophils (%) (Auto) 2.0, Basophils (%) (Auto) 0.5, Sodium Level 137, Potassium Level 3.3L, Chloride Level 106, Carbon Dioxide Level 23, Anion Gap 8, Blood Urea Nitrogen 24H, Creatinine 3.0H, Estimat Glomerular Filtration Rate 26.8, Glucose Level 158H, Calcium Level 7.9L, Pro-B-Type Natriuretic Peptide 30937I, Triglycerides Level 56, Cholesterol Level 147, LDL Cholesterol 91, HDL Cholesterol 46, Cholesterol/HDL Ratio 3.2L Height (Feet): 5 Height (Inches): 9.00 Weight (Pounds): 170 General Appearance: no apparent distress EENT: normal ENT inspection Neck: normal alignment Cardiovascular: normal rate, regular rhythm Respiratory/Chest: normal breath sounds Abdomen: non tender, soft Edema: no edema noted Arm (L), no edema noted Arm (R), no edema noted Leg (L), no edema noted Leg (R), no edema noted Pedal (L), no edema noted Pedal (R), no edema noted Generalized Lyndon Shaw MD Apr 18, 2019 10:00
--- NOTE | 2019-04-18 10:26 | Cardiac Electrophysiology PN ---
Assessment/Plan Assessment/Plan 1. Severe dilated cardiomyopathy. The patient has no prior myocardial infarction. His EKG also is not suggest any prior myocardial infarction. The patient has already been on medical therapy for 3 months. The patient would need prophylactic defibrillator implantation in view of high risk of sudden cardiac . Obtained authorization from insurance. Will schedule before discharge Continue Lasix 40 mg IV b.i.d., hydralazine 25 mg b.i.d., and Isordil 20 mg b.i.d. Avoid KEILY inhibitor in view of the patient's renal failure. In view of QRS duration of only 94 milliseconds, the patient would not benefit from cardiac resynchronization therapy. 2. Hypertension. Continue Lasix, hydralazine, and Isordil. I will add Coreg to his medical regimen as well in view of his cardiomyopathy. 3. Renal failure. Creatinine of 2.4. 4. Troponin leak due to heart failure as well as renal failure. Repeat troponin as well. 5. Hyponatremia. Keep the patient on diuretic at this time. Subjective Subjective CHF with EF <35% more than 6 months. No CP. SOB better Got Auth for ICD implant Objective Last 24 Hour Vital Signs Date Time Temp Pulse Resp B/P (MAP) Pulse Ox O2 Delivery O2 Flow Rate FiO2 04/18/19 08:36 92 157/100 04/18/19 08:35 157/100 04/18/19 08:35 157/100 04/18/19 08:00 98.4 92 19 157/100 (119) 96 04/18/19 04:00 98.0 99 18 148/90 (109) 97 04/18/19 04:00 90 04/18/19 00:00 97 04/18/19 00:00 98.8 98 19 159/100 (119) 96 04/17/19 21:05 102 161/98 04/17/19 21:00 Room Air 04/17/19 20:00 98.4 102 20 161/98 (119) 96 04/17/19 20:00 101 04/17/19 17:40 148/103 04/17/19 17:40 148/103 04/17/19 16:00 96 04/17/19 16:00 98.1 103 19 148/103 (118) 96 04/17/19 12:06 149/107 04/17/19 12:00 94 04/17/19 12:00 98.2 97 20 149/107 (121) 97 Intake and Output 04/17/19 04/18/19 19:00 07:00 Intake Total 840 ml Output Total 400 ml Balance 440 ml Intake Oral 840 ml Output Urine Total 400 ml # Voids 1 2 # Bowel Movements 1 2 Laboratory Tests Test 04/17/19 18:50 04/18/19 03:00 Troponin I 0.082 ng/mL (0.000-0.056) 0.086 ng/mL (0.000-0.056) White Blood Count 5.6 K/UL (4.8-10.8) Red Blood Count 3.91 M/UL (4.70-6.10) L Hemoglobin 11.0 G/DL (14.2-18.0) L Hematocrit 33.4 % (42.0-52.0) L Mean Corpuscular Volume 85 FL (80-99) Mean Corpuscular Hemoglobin 28.1 PG (27.0-31.0) Mean Corpuscular Hemoglobin Concent 32.9 G/DL (32.0-36.0) Red Cell Distribution Width 12.0 % (11.6-14.8) Platelet Count 320 K/UL (150-450) Mean Platelet Volume 6.1 FL (6.5-10.1) L Neutrophils (%) (Auto) 62.9 % (45.0-75.0) Lymphocytes (%) (Auto) 23.7 % (20.0-45.0) Monocytes (%) (Auto) 10.8 % (1.0-10.0) H Eosinophils (%) (Auto) 2.0 % (0.0-3.0) Basophils (%) (Auto) 0.5 % (0.0-2.0) Sodium Level 137 MMOL/L (136-145) Potassium Level 3.3 MMOL/L (3.5-5.1) L Chloride Level 106 MMOL/L (98-107) Carbon Dioxide Level 23 MMOL/L (21-32) Anion Gap 8 mmol/L (5-15) Blood Urea Nitrogen 24 mg/dL (7-18) H Creatinine 3.0 MG/DL (0.55-1.30) H Estimat Glomerular Filtration Rate 26.8 mL/min (>60) Glucose Level 158 MG/DL (74-106) H Calcium Level 7.9 MG/DL (8.5-10.1) L Pro-B-Type Natriuretic Peptide 73366 pg/mL (0-125) H Triglycerides Level 56 MG/DL (30-150) Cholesterol Level 147 MG/DL (< 200) LDL Cholesterol 91 mg/dL (<100) HDL Cholesterol 46 MG/DL (40-60) Cholesterol/HDL Ratio 3.2 (3.3-4.4) L Objective HEAD AND NECK: Positive JVD. LUNGS: Decreased breath sounds. CARDIOVASCULAR: Regular S1 and S2 with no gallop or murmur. ABDOMEN: Soft. EXTREMITIES: 1+ pitting edema. Shreyas Palacio MD Apr 18, 2019 10:26
--- NOTE | 2019-04-18 10:50 | Pulmonology Progress Note ---
Assessment/Plan Assessment/Plan IMPRESSION: 1. Pulmonary edema. 2. CHF. 3. Hypertension. 4. Diabetes mellitus. DISCUSSION: Continue medications. The patient needs increased diuresis. Blood pressure control. I will follow carefully. AICD per cardiology Tyrese Herman M.D. Subjective Interval Events: Feeling better Constitutional: Reports: no symptoms HEENT: Repors: no symptoms Respiratory: Reports: no symptoms Cardiovascular: Reports: no symptoms Allergies: Coded Allergies: LITHIUM (Verified Allergy, Unknown, 07/23/13) Objective Last 24 Hour Vital Signs Date Time Temp Pulse Resp B/P (MAP) Pulse Ox O2 Delivery O2 Flow Rate FiO2 04/18/19 08:36 92 157/100 04/18/19 08:35 157/100 04/18/19 08:35 157/100 04/18/19 08:00 98.4 92 19 157/100 (119) 96 04/18/19 04:00 98.0 99 18 148/90 (109) 97 04/18/19 04:00 90 04/18/19 00:00 97 04/18/19 00:00 98.8 98 19 159/100 (119) 96 04/17/19 21:05 102 161/98 04/17/19 21:00 Room Air 04/17/19 20:00 98.4 102 20 161/98 (119) 96 04/17/19 20:00 101 04/17/19 17:40 148/103 04/17/19 17:40 148/103 04/17/19 16:00 96 04/17/19 16:00 98.1 103 19 148/103 (118) 96 04/17/19 12:06 149/107 04/17/19 12:00 94 04/17/19 12:00 98.2 97 20 149/107 (121) 97 Intake and Output 04/17/19 04/18/19 19:00 07:00 Intake Total 840 ml Output Total 400 ml Balance 440 ml Intake Oral 840 ml Output Urine Total 400 ml # Voids 1 2 # Bowel Movements 1 2 General Appearance: no acute distress HEENT: normocephalic Respiratory/Chest: chest wall non-tender Cardiovascular: normal peripheral pulses Abdomen: normal bowel sounds Laboratory Tests 04/17/19 18:50: Troponin I 0.082H 04/18/19 03:00: Troponin I 0.086H, White Blood Count 5.6, Red Blood Count 3.91L, Hemoglobin 11.0L, Hematocrit 33.4L, Mean Corpuscular Volume 85, Mean Corpuscular Hemoglobin 28.1, Mean Corpuscular Hemoglobin Concent 32.9, Red Cell Distribution Width 12.0, Platelet Count 320, Mean Platelet Volume 6.1L, Neutrophils (%) (Auto) 62.9, Lymphocytes (%) (Auto) 23.7, Monocytes (%) (Auto) 10.8H, Eosinophils (%) (Auto) 2.0, Basophils (%) (Auto) 0.5, Sodium Level 137, Potassium Level 3.3L, Chloride Level 106, Carbon Dioxide Level 23, Anion Gap 8, Blood Urea Nitrogen 24H, Creatinine 3.0H, Estimat Glomerular Filtration Rate 26.8, Glucose Level 158H, Calcium Level 7.9L, Pro-B-Type Natriuretic Peptide [id number], Triglycerides Level 56, Cholesterol Level 147, LDL Cholesterol 91, HDL Cholesterol 46, Cholesterol/HDL Ratio 3.2L Current Medications Medications (Trade) Dose Ordered Sig/Manuelito Route PRN Reason Start Time Stop Time Status Last Admin Dose Admin Acetaminophen (Tylenol) 650 mg Q6HR PRN ORAL TEMP>100.5 04/16/19 22:15 Carvedilol (Coreg) 3.125 mg EVERY 12 HOURS ORAL 04/17/19 21:00 05/17/19 20:59 04/18/19 08:36 Clonidine HCl (Catapres Tab) 0.1 mg Q2H PRN ORAL For High Blood Pressure 04/17/19 14:00 05/17/19 13:59 Heparin Sodium (Porcine) (Heparin 5000 units/ml) 5,000 units EVERY 12 HOURS SUBQ 04/17/19 21:00 05/17/19 20:59 04/18/19 08:45 Hydralazine HCl (Apresoline) 25 mg BID ORAL 04/17/19 18:00 05/17/19 06:59 04/18/19 08:35 Isosorbide Dinitrate (Isordil) 20 mg BID ORAL 04/17/19 18:00 05/17/19 17:59 04/18/19 08:35 Morphine Sulfate (Morphine Sulfate) 4 mg Q4HR PRN IVP Moderate Pain (Pain Scale 4-6) 04/16/19 22:15 Ondansetron HCl (Zofran) 4 mg Q4HR PRN IVP Nausea & Vomiting 04/16/19 22:15 Tyrese Herman MD Apr 18, 2019 10:50
--- NOTE | 2019-04-18 14:49 | Anethesia Preoperative Eval ---
Anesthesia Pre-op PMH/ROS General Date of Evaluation: Apr 18, 2019 Time of Evaluation: 14:01 Anesthesiologist: Louise ASA Score: ASA 4 Mallampati Score Class I : Soft palate, uvula, fauces, pillars visible Class II: Soft palate, uvula, fauces visible Class III: Soft palate, base of uvula visible Class IV: Only hard plate visible Mallampati Classification: Class II Surgeon: Pia Diagnosis: CHF Surgical Procedure: ICD Anesthesia History: none Family History: no anesthesia problems Allergies: Coded Allergies: LITHIUM (Verified Allergy, Unknown, 07/23/13) Medications: see eMAR Patient NPO?: Yes Past Medical History Cardiovascular: Reports: HTN, other - CHF Neurologic/Psychiatric: Reports: CVA Endocrine: Reports: DM Anesthesia Pre-op Phys. Exam Physician Exam Last Vital Signs Date Time Temp Pulse Resp B/P (MAP) Pulse Ox O2 Delivery O2 Flow Rate FiO2 04/18/19 12:00 98.0 90 19 144/91 (108) 97 04/18/19 09:00 Room Air Constitutional: NAD Neurologic: CN 2-12 intact Cardiovascular: RRR Respiratory: CTA Gastrointestinal: S/NT/ND Airway Exam Mallampati Score: Class II MO: full ROM: limited Teeth: missing, intact Anesthesia Pre-op A/P Labs Hematology Test 04/18/19 03:00 White Blood Count 5.6 K/UL (4.8-10.8) Red Blood Count 3.91 M/UL (4.70-6.10) L Hemoglobin 11.0 G/DL (14.2-18.0) L Hematocrit 33.4 % (42.0-52.0) L Mean Corpuscular Volume 85 FL (80-99) Mean Corpuscular Hemoglobin 28.1 PG (27.0-31.0) Mean Corpuscular Hemoglobin Concent 32.9 G/DL (32.0-36.0) Red Cell Distribution Width 12.0 % (11.6-14.8) Platelet Count 320 K/UL (150-450) Mean Platelet Volume 6.1 FL (6.5-10.1) L Neutrophils (%) (Auto) 62.9 % (45.0-75.0) Lymphocytes (%) (Auto) 23.7 % (20.0-45.0) Monocytes (%) (Auto) 10.8 % (1.0-10.0) H Eosinophils (%) (Auto) 2.0 % (0.0-3.0) Basophils (%) (Auto) 0.5 % (0.0-2.0) Chemistry Test 04/17/19 18:50 04/18/19 03:00 Troponin I 0.082 ng/mL (0.000-0.056) 0.086 ng/mL (0.000-0.056) Sodium Level 137 MMOL/L (136-145) Potassium Level 3.3 MMOL/L (3.5-5.1) L Chloride Level 106 MMOL/L (98-107) Carbon Dioxide Level 23 MMOL/L (21-32) Anion Gap 8 mmol/L (5-15) Blood Urea Nitrogen 24 mg/dL (7-18) H Creatinine 3.0 MG/DL (0.55-1.30) H Estimat Glomerular Filtration Rate 26.8 mL/min (>60) Glucose Level 158 MG/DL (74-106) H Calcium Level 7.9 MG/DL (8.5-10.1) L Pro-B-Type Natriuretic Peptide 38460 pg/mL (0-125) H Triglycerides Level 56 MG/DL (30-150) Cholesterol Level 147 MG/DL (< 200) LDL Cholesterol 91 mg/dL (<100) HDL Cholesterol 46 MG/DL (40-60) Cholesterol/HDL Ratio 3.2 (3.3-4.4) L Studies Pre-op Studies: echo - EF<35% Risk Assessment & Plan Assessment: ASA 4 Plan: GA Status Change Before Surgery: No Pre-Antibiotics Drug: Oleg Urbina MD Apr 18, 2019 14:49
--- NOTE | 2019-04-18 14:52 | NUR ---
*-* INSURANCE *-* [facility] REF# [id number] F: [phone]
--- NOTE | 2019-04-18 15:55 | NUR ---
CASE MANAGEMENT:REVIEW 04/18/19 SI: SEVERE DILATED CARDIOMYOPATHY. EF<35% HIGH RISK OF SUDDEN 98.0 90 19 144/91 97% ON RA H/H-11.0/33.4 K-3.3 BUN+24 CR+3.0 TROPONIN(+) 0.086 IS: HEPARIN SQ Q12 COREG PO Q12 HYDRALAZINE PO BID ISORDIL PO BID : TELEMETRY STATUS DCP: FROM HOME PLAN: CONSENT FOR ICD IMPLANTATION
--- NOTE | 2019-04-18 17:12 | NUR ---
NURSE NOTES: Patient is resting, No sign of distress. Consent signed for tomorrow.
--- NOTE | 2019-04-18 19:05 | NUR ---
HAND-OFF: Report given to Noemí/RN, Patient lying semi-daniels's resting comfortably. Endorsed plan of care.
--- NOTE | 2019-04-18 19:50 | NUR ---
NURSE NOTES: Received pt from MAYCOL Faria. Pt awake, alert, and talkative. Bed in lowest position. Call light within reach. Will continue to monitor.
[2019-04-19] VITALS (13 sets, daily range): BP systolic 138–163; BP diastolic 93–112
[2019-04-19 06:43] LABS: BASOPHILS % (AUTO) 0.8 % (0.0-2.0); EOSINOPHILS % (AUTO) 2.3 % (0.0-3.0); HEMATOCRIT 33.9 % (42.0-52.0); HEMOGLOBIN 11.3 G/DL (14.2-18.0); LYMPHOCYTES % (AUTO) 24.7 % (20.0-45.0); MEAN CORPUSCULAR VOLUME 86 FL (80-99); MONOCYTES % (AUTO) 8.1 % (1.0-10.0); NEUTROPHILS % (AUTO) 64.2 % (45.0-75.0); PLATELET COUNT 334 K/UL (150-450); RED BLOOD COUNT 3.95 M/UL (4.70-6.10)
--- NOTE | 2019-04-19 06:46 | Cardiac Electrophysiology PN ---
Assessment/Plan Assessment/Plan 1. Severe nonischemic dilated cardiomyopathy. The patient has no prior myocardial infarction. His EKG also is not suggest any prior myocardial infarction. The patient has already been on medical therapy for more than 3 months. NPO for prophylactic defibrillator implantation in view of high risk of sudden cardiac . Obtained authorization from insurance. Continue Lasix 40 mg IV b.i.d., hydralazine 25 mg b.i.d., and Isordil 20 mg b.i.d. Avoid KEILY inhibitor in view of the patient's renal failure. In view of QRS duration of only 94 milliseconds, the patient would not benefit from cardiac resynchronization therapy. 2. Hypertension. Continue Lasix, hydralazine, Isordil and Coreg 3. Renal failure. Creatinine of 2.4. 4. Troponin leak due to heart failure as well as renal failure. 5. Hyponatremia. Keep the patient on diuretic at this time. Subjective Subjective CHF with EF <35% more than 6 months. No CP. SOB better NPO for ICD implant today Objective Last 24 Hour Vital Signs Date Time Temp Pulse Resp B/P (MAP) Pulse Ox O2 Delivery O2 Flow Rate FiO2 04/19/19 04:00 95 04/19/19 04:00 97.9 95 19 156/104 (121) 97 04/19/19 00:00 99.1 96 19 152/93 (112) 92 04/19/19 00:00 99 04/18/19 22:46 96 148/93 (111) 96 04/18/19 21:00 Room Air 04/18/19 20:26 103 161/101 04/18/19 20:00 99.5 103 19 161/101 (121) 94 04/18/19 20:00 101 04/18/19 17:40 155/92 04/18/19 17:40 155/92 04/18/19 16:00 9 04/18/19 16:00 99.3 92 19 155/92 (113) 97 04/18/19 12:00 98.0 90 19 144/91 (108) 97 04/18/19 12:00 87 04/18/19 09:00 Room Air 04/18/19 08:36 92 157/100 04/18/19 08:35 157/100 04/18/19 08:35 157/100 04/18/19 08:00 98.4 92 19 157/100 (119) 96 04/18/19 08:00 99 Intake and Output 04/18/19 04/19/19 19:00 07:00 Intake Total 500 ml Output Total 1200 ml 800 ml Balance -700 ml -800 ml Intake Oral 500 ml Output Urine Total 1200 ml 800 ml # Voids 3 4 # Bowel Movements 1 1 Laboratory Tests Test 04/19/19 05:10 White Blood Count Pending Red Blood Count Pending Hemoglobin Pending Hematocrit Pending Mean Corpuscular Volume Pending Mean Corpuscular Hemoglobin Pending Mean Corpuscular Hemoglobin Concent Pending Red Cell Distribution Width Pending Platelet Count Pending Mean Platelet Volume Pending Neutrophils (%) (Auto) Pending Lymphocytes (%) (Auto) Pending Monocytes (%) (Auto) Pending Eosinophils (%) (Auto) Pending Basophils (%) (Auto) Pending Sodium Level Pending Potassium Level Pending Chloride Level Pending Carbon Dioxide Level Pending Blood Urea Nitrogen Pending Creatinine Pending Estimat Glomerular Filtration Rate Pending Glucose Level Pending Calcium Level Pending Objective HEAD AND NECK: Positive JVD. LUNGS: Decreased breath sounds. CARDIOVASCULAR: Regular S1 and S2 with no gallop or murmur. ABDOMEN: Soft. EXTREMITIES: 1+ pitting edema. Shreyas Palacio MD Apr 19, 2019 06:46
--- NOTE | 2019-04-19 06:48 | Pre-Procedure Note/Attestation ---
Pre-Procedure Note/Attestation Complete Prior to Procedure Planned Procedure: left Procedure Narrative: ICD implant Indications for Procedure Pre-Operative Diagnosis: Severe cardiomyopathy. Attestation I attest that I discussed the nature of the procedure; its benefits; risks and complications; and alternatives (and the risks and benefits of such alternatives ), prior to the procedure, with the patient (or the patient's legal title insurance sales representative). I attest that, if there was a reasonable possibility of needing a blood transfusion, the patient (or the patient's legal title insurance sales representative) was given the [facility] standardized written summary, pursuant to the Giorgio Ladi Blood Safety Act ([place] Health and Safety Code # 1645, as amended). I attest that I re-evaluated the patient just prior to the surgery and that there has been no change in the patient's H&P, except as documented below: Shreyas Palacio MD Apr 19, 2019 06:48
[2019-04-19] MEDS ORDERED: Isovue-M 300 15ml INJ ONE (07:10)
[2019-04-19] MEDS ORDERED: Propofol 200mg/20ml IV ONE (07:10)
[2019-04-19] MEDS ORDERED: Lidocaine 1% Plain 30 ml INJ ONE (07:10)
[2019-04-19] MEDS ORDERED: fentaNYL 100 mcg/2 mL IV ONE (07:10)
[2019-04-19] MEDS ORDERED: Midazolam 2mg/2ml Inj ONE (07:11)
[2019-04-19] MEDS ORDERED: ePHEDrine 50mg/ml Inj ONE (07:11)
[2019-04-19] MEDS ORDERED: Lidocaine 1% MPF 10mg/ml 5ml ONE (07:11)
[2019-04-19] MEDS ORDERED: Phenylephrine 10mg/ml Vial ONE (07:11)
[2019-04-19 07:20] LABS: ANION GAP 12 mmol/L (5-15); BLOOD UREA NITROGEN 29 mg/dL (7-18); CALCIUM 8.3 MG/DL (8.5-10.1); CARBON DIOXIDE 20 MMOL/L (21-32); CHLORIDE 107 MMOL/L (98-107); POTASSIUM 3.7 MMOL/L (3.5-5.1); SODIUM 139 MMOL/L (136-145)
[2019-04-19] MEDS ORDERED: Sterile Water Irrig 2000ml IRRIG ONE (07:30)
[2019-04-19] MEDS ORDERED: NS 275ml ONE (07:30)
[2019-04-19] MEDS ORDERED: Sterile Water Irrig 1000ml IRRIG ONE (07:30)
[2019-04-19] MEDS ORDERED: NS Irrig 1000ml ONE (07:30)
[2019-04-19] MEDS ORDERED: Ketamine 500mg/10ml vial ONE (07:39)
--- NOTE | 2019-04-19 07:44 | NUR ---
HAND-OFF: Report given to MAYCOL Charles. Pt went down to OR. Pt stable.
--- NOTE | 2019-04-19 07:56 | NUR ---
NURSE NOTES: pt isn't in the unit, he is OR for ICD placement, waiting to come back.
--- NOTE | 2019-04-19 07:56 | Brief Operative Note ---
Immediate Post Operative Note Operative Note Pre-op Diagnosis: Severe cardiomyopathy. Post-op Diagnosis: same as pre-op Specimen: none Complications: none Condition: stable Fluids: none Estimated Blood Loss: minimal Drains: none Implant(s) used?: Yes Shreyas Palacio MD Apr 19, 2019 07:56
--- NOTE | 2019-04-19 08:06 | CDS Physician Query ---
Clarification is required for compliance, coding accuracy, and to reflect severity of illness for this patient Dear Dr. Palacio, Date: 04.19.19 CDS: Italo hall "Heart Failure / CHF" documented in progress note. CHF with EF of 35% is documented in progress note with Lasix IV bid. Please Clarify: Acuity [ ] Acute [ ] Chronic [ ] Acute on Chronic Type [ ] Systolic [ ] Diastolic [ ] Systolic & Diastolic (Combined) [ ] Other: Present on Admission: [] Yes [] No [] Clinically Undetermined Physician signature Date Please also document in your Progress Notes and/or Discharge Summary and indicate if the condition was present on admission. MTDD
--- NOTE | 2019-04-19 08:48 | Immediate Post-Op Evaluation ---
Immediate Post-Op Evalulation Immediate Post-Op Evalulation Procedure: AICD insertion Date of Evaluation: Apr 19, 2019 Time of Evaluation: 08:47 IV Fluids: 0.9 NS 100 ml Estimated Blood Loss: 5 Blood Pressure Systolic: 147 Blood Pressure Diastolic: 105 Pulse Rate: 85 Respiratory Rate: 12 O2 Sat by Pulse Oximetry: 100 Temperature (Fahrenheit): 98.1 Pain Score (1-10): 0 Nausea: No Vomiting: No Complications none Patient Status: awake, reacts, patent Hydration Status: adequate Drug: Cefazolin 2000 mg IV Given Within 1 Hr of Incision: Yes Time Given: 07:45 Denisa Jean CRNA Apr 19, 2019 08:48
[2019-04-19] MEDS ORDERED: Hydromorphone 0.5mg/0.5ml inj IVP PRN (09:00)
--- NOTE | 2019-04-19 09:07 | NUR ---
RADIOLOGY DEPT., CHEST X-RAY POST PACEMAKER PLCMT PERFORMED BY ORVILLE HURLEY.JERO
--- NOTE | 2019-04-19 09:43 | General Progress Note ---
Assessment/Plan Problem List: (1) UTI (urinary tract infection) ICD Codes: N39.0 - Urinary tract infection, site not specified SNOMED: 02949617 (2) Respiratory distress ICD Codes: R06.03 - Acute respiratory distress SNOMED: 488958051 (3) Anemia ICD Codes: D64.9 - Anemia, unspecified SNOMED: 814804029 (4) Renal insufficiency ICD Codes: N28.9 - Disorder of kidney and ureter, unspecified SNOMED: 100343824, 339598507 (5) Malnutrition ICD Codes: E46 - Unspecified protein-calorie malnutrition SNOMED: 03295680 (6) Pulmonary edema ICD Codes: J81.1 - Chronic pulmonary edema SNOMED: 16619477 Qualifiers: Qualified Codes: J81.0 - Acute pulmonary edema (7) Hypertensive heart disease ICD Codes: I11.9 - Hypertensive heart disease without heart failure SNOMED: 97475638 (8) Congestive heart failure (CHF) ICD Codes: I50.9 - Heart failure, unspecified SNOMED: 91054405 Qualifiers: Qualified Codes: I50.9 - Heart failure, unspecified (9) Diabetes mellitus ICD Codes: E11.9 - Type 2 diabetes mellitus without complications SNOMED: 68653261 (10) Diabetic nephropathy ICD Codes: E11.21 - Type 2 diabetes mellitus with diabetic nephropathy SNOMED: 074412158 Status: stable, progressing Assessment/Plan: resp insuff chf anemia dm htn no sob reviewed chart and lab covering for dr giselle burnette Subjective ROS Limited/Unobtainable: Yes Allergies: Coded Allergies: LITHIUM (Verified Allergy, Unknown, 07/23/13) Objective Last 24 Hour Vital Signs Date Time Temp Pulse Resp B/P (MAP) Pulse Ox O2 Delivery O2 Flow Rate FiO2 04/19/19 09:15 97.8 87 18 138/99 100 Nasal Cannula 3 04/19/19 09:00 85 15 148/103 100 Nasal Cannula 3 04/19/19 08:50 83 16 144/102 100 Simple Mask 6 04/19/19 08:48 85 12 100 04/19/19 07:45 82 12 148/101 100 Simple Mask 6 04/19/19 07:42 95 04/19/19 07:39 98.1 83 13 147/105 100 Simple Mask 6 04/19/19 04:00 95 04/19/19 04:00 97.9 95 19 156/104 (121) 97 04/19/19 00:00 99.1 96 19 152/93 (112) 92 04/19/19 00:00 99 04/18/19 22:46 96 148/93 (111) 96 04/18/19 21:00 Room Air 04/18/19 20:26 103 161/101 04/18/19 20:00 99.5 103 19 161/101 (121) 94 04/18/19 20:00 101 04/18/19 17:40 155/92 04/18/19 17:40 155/92 04/18/19 16:00 9 04/18/19 16:00 99.3 92 19 155/92 (113) 97 04/18/19 12:00 98.0 90 19 144/91 (108) 97 04/18/19 12:00 87 Intake and Output 04/18/19 04/19/19 19:00 07:00 Intake Total 500 ml Output Total 1200 ml 800 ml Balance -700 ml -800 ml Intake Oral 500 ml Output Urine Total 1200 ml 800 ml # Voids 3 4 # Bowel Movements 1 1 Laboratory Tests 04/19/19 05:10: White Blood Count 6.0, Red Blood Count 3.95L, Hemoglobin 11.3L, Hematocrit 33.9L , Mean Corpuscular Volume 86, Mean Corpuscular Hemoglobin 28.6, Mean Corpuscular Hemoglobin Concent 33.3, Red Cell Distribution Width 12.0, Platelet Count 334, Mean Platelet Volume 6.1L, Neutrophils (%) (Auto) 64.2, Lymphocytes ( %) (Auto) 24.7, Monocytes (%) (Auto) 8.1, Eosinophils (%) (Auto) 2.3, Basophils (%) (Auto) 0.8, Sodium Level 139, Potassium Level 3.7, Chloride Level 107, Carbon Dioxide Level 20L, Anion Gap 12, Blood Urea Nitrogen 29H, Creatinine 3.0H , Estimat Glomerular Filtration Rate 26.8, Glucose Level 108H, Calcium Level 8.3L Height (Feet): 5 Height (Inches): 9.00 Weight (Pounds): 170 Melida Recinos MD Apr 19, 2019 09:43
[2019-04-19] MEDS: HydrALAZINE 25mg tab ORAL SCH ×2 (09:51→17:15)
[2019-04-19] MEDS: Heparin 5000 units/ml inj SUBQ SCH ×2 (09:52→20:25)
--- NOTE | 2019-04-19 10:13 | Nephrology Progress Note ---
Assessment/Plan Status: stable, progressing Assessment/Plan: A/P 1. AMY on CKD 4 - Cr plateaued at 3. Hold off diuretics if possible 2. CHF. Resting well. - holding diurectics a sCr up to 3 3. Hypertension. stable 4. Hyponatremia. Resolved. Subjective Date patient seen: Apr 19, 2019 Time patient seen: 10:11 ROS Limited/Unobtainable: No Allergies: Coded Allergies: LITHIUM (Verified Allergy, Unknown, 07/23/13) Subjective Patient resting and slowly improving Objective Last 24 Hour Vital Signs Date Time Temp Pulse Resp B/P (MAP) Pulse Ox O2 Delivery O2 Flow Rate FiO2 04/19/19 09:52 163/112 04/19/19 09:51 90 163/112 04/19/19 09:51 163/112 04/19/19 09:49 98.6 90 20 163/112 (129) 98 04/19/19 09:15 97.8 87 18 138/99 100 Nasal Cannula 3 04/19/19 09:00 85 15 148/103 100 Nasal Cannula 3 04/19/19 08:50 83 16 144/102 100 Simple Mask 6 04/19/19 08:48 85 12 100 04/19/19 07:45 82 12 148/101 100 Simple Mask 6 04/19/19 07:42 95 04/19/19 07:39 98.1 83 13 147/105 100 Simple Mask 6 04/19/19 04:00 95 04/19/19 04:00 97.9 95 19 156/104 (121) 97 04/19/19 00:00 99.1 96 19 152/93 (112) 92 04/19/19 00:00 99 04/18/19 22:46 96 148/93 (111) 96 04/18/19 21:00 Room Air 04/18/19 20:26 103 161/101 04/18/19 20:00 99.5 103 19 161/101 (121) 94 04/18/19 20:00 101 04/18/19 17:40 155/92 04/18/19 17:40 155/92 04/18/19 16:00 9 04/18/19 16:00 99.3 92 19 155/92 (113) 97 04/18/19 12:00 98.0 90 19 144/91 (108) 97 04/18/19 12:00 87 Intake and Output 04/18/19 04/19/19 19:00 07:00 Intake Total 500 ml Output Total 1200 ml 800 ml Balance -700 ml -800 ml Intake Oral 500 ml Output Urine Total 1200 ml 800 ml # Voids 3 4 # Bowel Movements 1 1 Laboratory Tests 04/19/19 05:10: White Blood Count 6.0, Red Blood Count 3.95L, Hemoglobin 11.3L, Hematocrit 33.9L , Mean Corpuscular Volume 86, Mean Corpuscular Hemoglobin 28.6, Mean Corpuscular Hemoglobin Concent 33.3, Red Cell Distribution Width 12.0, Platelet Count 334, Mean Platelet Volume 6.1L, Neutrophils (%) (Auto) 64.2, Lymphocytes ( %) (Auto) 24.7, Monocytes (%) (Auto) 8.1, Eosinophils (%) (Auto) 2.3, Basophils (%) (Auto) 0.8, Sodium Level 139, Potassium Level 3.7, Chloride Level 107, Carbon Dioxide Level 20L, Anion Gap 12, Blood Urea Nitrogen 29H, Creatinine 3.0H , Estimat Glomerular Filtration Rate 26.8, Glucose Level 108H, Calcium Level 8.3L Height (Feet): 5 Height (Inches): 9.00 Weight (Pounds): 170 General Appearance: no apparent distress EENT: normal ENT inspection Neck: normal alignment Cardiovascular: normal rate, regular rhythm Respiratory/Chest: rhonchi - bilaterally Abdomen: non tender, soft Edema: no edema noted Arm (L), no edema noted Arm (R), no edema noted Leg (L), no edema noted Leg (R), no edema noted Pedal (L), no edema noted Pedal (R), no edema noted Generalized Lyndon Shaw MD Apr 19, 2019 10:13
--- NOTE | 2019-04-19 10:14 | NUR ---
NURSE NOTES: Received pt from DENNYS MCGINNIS RN at 0940. Pt is awake and alert, pt has NC 2LMP. pt has intact iv access RH 18G is running well. Pt is on continues heart monitoring. pt has ICD on L chest, Dermabond is intact. pt has L arm sling. pt consumed breakfast as order and tolerated well, no N/V noted. no complain of pain at this moment. ECG done and the result sent to Dr RITTER waiting to call back. all needs attended, bed is locked and is in the lowest position, call light within easy reach. will continue to monitor.
--- NOTE | 2019-04-19 10:19 | NUR ---
CASE MANAGEMENT:REVIEW 04/19/19 SI: SEVERE DILATED CARDIOMYOPATHY. EF<35% HIGH RISK OF SUDDEN 98.6 90 20 163/112 98% ON 3L/NC H/H-11.3/33.9 BUN+29 CR+3.0 IS: TO SURGERY: AICD PLACEMENT IV ANCEF Q8HRS HEPARIN SQ Q12 COREG PO Q12 HYDRALAZINE PO BID ISORDIL PO BID : TELEMETRY STATUS DCP: FROM HOME
--- NOTE | 2019-04-19 10:30 | Diagnostic Imaging Report ---
Indication: Status post ICD placement Technique: One view of the chest Comparison: 04/16/2019 Findings: Interim placement left chest AICD, lead tip in the expected region of the right ventricular apex. No pneumothorax. There is persistent pleural fluid on the left. There is persistent bilateral interstitial edema. The heart remains enlarged. Impression: Status post left chest AICD placement. No radiographically evident complication Other stable findings as described
--- NOTE | 2019-04-19 10:32 | Diagnostic Imaging Report ---
INDICATION: Pain, intraoperative TECHNIQUE: Intraoperative imaging Fluoroscopy time: 66.5 seconds Total dose: 0.04084 mGym2 Total number of images: One COMPARISON: None FINDINGS: Intraoperative images demonstrate placement of an AICD IMPRESSION: Intraoperative imaging, as described
--- NOTE | 2019-04-19 11:30 | NUR ---
NURSE NOTES: Dr DOMINGUEZ called back and no new order to RN. Will continue to monitor.
--- NOTE | 2019-04-19 12:21 | NUR ---
*-* INSURANCE *-* ALL CLINICALS AND REVIEWS HAVE BEEN FAXED TO: [facility] P; [phone] F: [phone] [facility] T:[phone] SPOKE WITH OLIVIA REF# [id number] Addendum: 04/19/19 at 1410 by ROGELIO KC [employer] f: [phone]
[2019-04-19] MEDS ORDERED: Tylenol #3 tab (300mg/30mg) ORAL PRN (13:00)
--- NOTE | 2019-04-19 13:32 | Pulmonology Progress Note ---
Assessment/Plan Assessment/Plan IMPRESSION: 1. Pulmonary edema. 2. CHF. 3. Hypertension. 4. Diabetes mellitus. DISCUSSION: Continue medications. The patient needs increased diuresis. Blood pressure control. I will follow carefully. AICD per cardiology Tyrese Herman M.D. Subjective Interval Events: none new reported Constitutional: Reports: no symptoms HEENT: Repors: no symptoms Respiratory: Reports: shortness of breath, dyspnea on exertion Cardiovascular: Reports: no symptoms Gastrointestinal/Abdominal: Reports: no symptoms Genitourinary: Reports: no symptoms Allergies: Coded Allergies: LITHIUM (Verified Allergy, Unknown, 07/23/13) Objective Last 24 Hour Vital Signs Date Time Temp Pulse Resp B/P (MAP) Pulse Ox O2 Delivery O2 Flow Rate FiO2 04/19/19 12:00 98.2 85 20 155/94 (114) 100 04/19/19 11:41 85 04/19/19 09:52 163/112 04/19/19 09:51 90 163/112 04/19/19 09:51 163/112 04/19/19 09:49 98.6 90 20 163/112 (129) 98 04/19/19 09:40 Nasal Cannula 2.0 04/19/19 09:15 97.8 87 18 138/99 100 Nasal Cannula 3 04/19/19 09:00 85 15 148/103 100 Nasal Cannula 3 04/19/19 08:50 83 16 144/102 100 Simple Mask 6 04/19/19 08:48 85 12 100 04/19/19 07:45 82 12 148/101 100 Simple Mask 6 04/19/19 07:42 95 04/19/19 07:39 98.1 83 13 147/105 100 Simple Mask 6 04/19/19 04:00 95 04/19/19 04:00 97.9 95 19 156/104 (121) 97 04/19/19 00:00 99.1 96 19 152/93 (112) 92 04/19/19 00:00 99 04/18/19 22:46 96 148/93 (111) 96 04/18/19 21:00 Room Air 04/18/19 20:26 103 161/101 04/18/19 20:00 99.5 103 19 161/101 (121) 94 04/18/19 20:00 101 04/18/19 17:40 155/92 04/18/19 17:40 155/92 04/18/19 16:00 9 04/18/19 16:00 99.3 92 19 155/92 (113) 97 Intake and Output 04/18/19 04/19/19 19:00 07:00 Intake Total 500 ml Output Total 1200 ml 800 ml Balance -700 ml -800 ml Intake Oral 500 ml Output Urine Total 1200 ml 800 ml # Voids 3 4 # Bowel Movements 1 1 General Appearance: no acute distress HEENT: normocephalic Respiratory/Chest: chest wall non-tender, decreased breath sounds Cardiovascular: normal peripheral pulses Abdomen: normal bowel sounds Laboratory Tests 04/19/19 05:10: White Blood Count 6.0, Red Blood Count 3.95L, Hemoglobin 11.3L, Hematocrit 33.9L , Mean Corpuscular Volume 86, Mean Corpuscular Hemoglobin 28.6, Mean Corpuscular Hemoglobin Concent 33.3, Red Cell Distribution Width 12.0, Platelet Count 334, Mean Platelet Volume 6.1L, Neutrophils (%) (Auto) 64.2, Lymphocytes ( %) (Auto) 24.7, Monocytes (%) (Auto) 8.1, Eosinophils (%) (Auto) 2.3, Basophils (%) (Auto) 0.8, Sodium Level 139, Potassium Level 3.7, Chloride Level 107, Carbon Dioxide Level 20L, Anion Gap 12, Blood Urea Nitrogen 29H, Creatinine 3.0H , Estimat Glomerular Filtration Rate 26.8, Glucose Level 108H, Calcium Level 8.3L Current Medications Medications (Trade) Dose Ordered Sig/Manuelito Route PRN Reason Start Time Stop Time Status Last Admin Dose Admin Acetaminophen (Tylenol) 650 mg Q6H PRN ORAL FHMP 04/19/19 08:00 05/19/19 07:59 04/19/19 13:24 Acetaminophen/ Codeine Phosphate (Tylenol #3) 1 tab Q4H PRN ORAL Moderate Pain (Pain Scale 4-6) 04/19/19 13:00 04/26/19 12:59 Carvedilol (Coreg) 3.125 mg EVERY 12 HOURS ORAL 04/17/19 21:00 05/17/19 20:59 04/19/19 09:51 Cefazolin Sodium 500 mg/Dextrose 55 ml @ 110 mls/hr Q8H IV 04/19/19 19:30 04/26/19 19:29 Clonidine HCl (Catapres Tab) 0.1 mg Q2H PRN ORAL For High Blood Pressure 04/17/19 14:00 05/17/19 13:59 Heparin Sodium (Porcine) (Heparin 5000 units/ml) 5,000 units EVERY 12 HOURS SUBQ 04/17/19 21:00 05/17/19 20:59 04/18/19 08:45 Hydralazine HCl (Apresoline) 25 mg BID ORAL 04/17/19 18:00 05/17/19 06:59 04/19/19 09:51 Isosorbide Dinitrate (Isordil) 20 mg BID ORAL 04/17/19 18:00 05/17/19 17:59 04/19/19 09:52 Morphine Sulfate (Morphine Sulfate) 2 mg Q1H PRN IVP Severe Pain (Pain Scale 7-10) 04/19/19 13:00 04/26/19 12:59 Ondansetron HCl (Zofran) 4 mg Q6H PRN IVP Nausea & Vomiting 04/19/19 13:00 05/19/19 12:59 Tyrese Herman MD Apr 19, 2019 13:32
--- NOTE | 2019-04-19 14:42 | NUR ---
RD ASSESSMENT & RECOMMENDATIONS SEE CARE ACTIVITY FOR COMPLETE ASSESSMENT DAILY ESTIMATED NEEDS: Needs based on cardiac, DM, CKD/ 78kg abw 25-30 kcals/kg 7231-6251 total kcals 0.8-1.0 g protein/kg 62-78 g total protein 20-22 mL/kg 7519-1803 total fluid mLs NUTRITION DIAGNOSIS: Altered nutrition related lab values R/T CHF, HTN, CKD, DM as evidenced by elev BNP (12174), elev creat (3.0), elev BGs (108, 158), elev BPs (156/104, 161/101) CURRENT DIET:REGULAR PO DIET RECOMMENDATIONS: LOW NA, CCHO MED ADDITIONAL RECOMMENDATIONS: * Daily standing wt for monitoring: CHF dx * A1C for eval of BG control: h/o DM * Monitor BGs, need for hypoglycemics
[2019-04-19] MEDS: Morphine Sulfate 2mg/ml Inj(IV/IM USE ONLY) IVP PRN (14:55)
[2019-04-19] MEDS ORDERED: ceFAZolin sod 1 GM in D5W 55 ML IVP SCH (15:30)
--- NOTE | 2019-04-19 16:30 | Operative Note - Dictated ---
DATE OF OPERATION: 04/19/2019 NOTE: "POOR AUDIO QUALITY" SINGLE-CHAMBER DEFIBRILLATOR IMPLANTATION SURGEON: Shreyas Palacio M.D. INDICATION FOR PROCEDURE: Severe nonischemic cardiomyopathy, EF of less than 30% for more than three months despite optimized medical therapy. Prophylactic defibrillator was recommended to prevent sudden cardiac . PROCEDURE PERFORMED: 1. Single-chamber defibrillator implantation. 2. Fluoroscopic supervision and interpretation. 3. ICD program during initial implant. OPERATIVE REPORT: The patient was brought into the operating room in fasting state and after informed consent was obtained. The patient was prepped and draped in usual fashion. Conscious sedation was provided by the anesthesiologist. After prep and drape and under sterile condition, after 20 mL lidocaine was given, after time-out was performed, and the patient received IV antibiotic, an incision was made along the left deltopectoral groove. Sharp and blunt dissection was made to the level of pectoralis fascia. The cephalic vein was isolated and cutdown was performed. The right ventricular lead was then placed through this access and was placed in the right ventricular apex with excellent sensing and pacing parameters. The lead was affixed to underlying pectoralis fascia. The pocket was made close to the venous access site and was irrigated with antibiotic solution. The lead was then connected to defibrillator and left in the pocket. The pocket was then closed in three layers using 2-0 Vicryl and Dermabond. The patient suffered no immediate complications from the procedure and was transferred to recovery room in stable condition. FINDINGS: The new defibrillator is from [employer] is a Dynagen Mini ICD VR, model #D020, serial #[id number]. The right ventricular lead is from [employer] is Concepcion 4-Front, model #0673, serial #[id number]. The R-wave is 8.7 millivolts, threshold is 0.4 volts at 0.4 milliseconds, impedance of 260 ohms, and shock impedance of 35 ohms. IMPRESSION: 1. Successful single-chamber defibrillator implantation. 2. ICD was programmed to VVI, lower rate of 40 with VF 30 with ventricular tachycardia more than 190 beats per minute with antitachycardia pacing and then 41 joules x6, ventricular fibrillation was programmed with heart rates of 120 beats per minute with antitachycardia pacing during charging at 41-joule shocks x8. 3. No immediate complications from the procedure. Shreyas Palacio M.D. DR: MANISH JOB#: [id number] CC:
--- NOTE | 2019-04-19 19:20 | NUR ---
HAND-OFF: Report given to CHESTER SEVERINO. Pt is sleeping and stable.
[2019-04-19] MEDS ORDERED: ceFAZolin 1gm in D5W 55ml IVPB SCH (19:30)
--- NOTE | 2019-04-19 19:30 | NUR ---
NURSE NOTES: Received patient from Latasha SEVERINO. Patient in bed, on 2L NC, no signs of respiratory distress. Bed in low position, locked, call light within reach. Right hand 22iv intact, patent. Patient refused to have sling on left arm. Instructed patient to limit movement on left side due to surgery today. Dressing on left upper chest intact, dry, no bleeding. Patient had an ICD placed today.
[2019-04-19] MEDS: ceFAZolin 500mg in D5W 55ml IV SCH (19:51)
--- NOTE | 2019-04-19 21:55 | NUR ---
NURSE NOTES: Notified Dr. Palacio regarding patient's episode of sinus tachycardia 150/min for 4.5 seconds. No orders from Dr. Palacio.
[2019-04-20] VITALS: BP 152/98
[2019-04-20] MEDS: ceFAZolin 500mg in D5W 55ml IV SCH ×2 (03:09→12:45)
[2019-04-20 05:00] VITALS: BP 157/105
--- NOTE | 2019-04-20 05:30 | NUR ---
NURSE NOTES: Patient BP elevated, c/o SOB and left chest pain 8/10, O2sat >90%. Administered morphine ivp.
[2019-04-20] MEDS: Morphine Sulfate 2mg/ml Inj(IV/IM USE ONLY) IVP PRN ×2 (05:33→09:48)
[2019-04-20 06:25] VITALS: BP 158/103
--- NOTE | 2019-04-20 06:27 | NUR ---
NURSE NOTES: Patient states his breathing is better, more relaxed. BP still elevated but not high enough to give prn bp meds.
--- NOTE | 2019-04-20 07:20 | NUR ---
NURSE NOTES: Received report from Yves SEVERINO. Pt in bed awake and oriented. No c/o pain. IV site in right hand 18G SL patent and asymptomatic. Bed in lowest position and locked. Side railx2 up for safety. Surgical site in left upper chest clean and no signs of infection noted. Will continue to plan of care.
[2019-04-20 08:00] VITALS: BP 156/104
[2019-04-20] MEDS: HydrALAZINE 25mg tab ORAL SCH ×2 (09:48→18:10)
[2019-04-20] MEDS: Heparin 5000 units/ml inj SUBQ SCH (09:49)
[2019-04-20 12:00] VITALS: BP 158/104
--- NOTE | 2019-04-20 12:40 | Nephrology Progress Note ---
Assessment/Plan Status: stable, progressing Assessment/Plan: A/P 1. AMY on CKD 4 - Cr plateaued at 3. Hold off diuretics - AM labs pending. OK for DC from renal if Cr <3 2. CHF. Resting well. - holding diurectics as Cr up to 3. AM labs pending 3. Hypertension. stable 4. Hyponatremia. Resolved. Subjective Date patient seen: Apr 20, 2019 Time patient seen: 12:39 ROS Limited/Unobtainable: No Allergies: Coded Allergies: LITHIUM (Verified Allergy, Unknown, 07/23/13) Subjective Patient feels good wanting to go home Objective Last 24 Hour Vital Signs Date Time Temp Pulse Resp B/P (MAP) Pulse Ox O2 Delivery O2 Flow Rate FiO2 04/20/19 12:00 99.5 93 20 158/104 (122) 95 04/20/19 09:48 156/104 04/20/19 09:46 156/104 04/20/19 09:46 96 156/104 04/20/19 09:00 Nasal Cannula 2.0 04/20/19 08:00 99.5 96 20 156/104 (121) 95 04/20/19 08:00 101 04/20/19 06:25 20 158/103 (121) 04/20/19 06:03 99.1 04/20/19 05:00 99.1 94 24 157/105 (122) 93 04/20/19 04:00 90 04/20/19 00:00 93 04/20/19 00:00 97.7 93 16 152/98 (116) 98 04/19/19 21:00 Nasal Cannula 2.0 04/19/19 21:00 93 04/19/19 20:22 92 152/98 04/19/19 20:17 92 152/98 (116) 04/19/19 20:00 97.9 18 97 04/19/19 17:16 140/96 04/19/19 17:15 140/96 04/19/19 16:00 97.8 63 19 140/96 (111) 100 04/19/19 15:59 90 Intake and Output 04/19/19 04/20/19 19:00 07:00 Intake Total 125 ml 250 ml Output Total 10 ml 2150 ml Balance 115 ml -1900 ml Intake Oral 140 ml IV Total 125 ml 110 ml Output Urine Total 2150 ml Estimated Blood Loss 10 ml # Voids 7 # Bowel Movements 1 1 Height (Feet): 5 Height (Inches): 9.00 Weight (Pounds): 170 General Appearance: no apparent distress EENT: normal ENT inspection Neck: normal alignment Cardiovascular: normal rate Respiratory/Chest: lungs clear, normal breath sounds Abdomen: non tender, soft Edema: no edema noted Arm (L), no edema noted Arm (R), no edema noted Leg (L), no edema noted Leg (R), no edema noted Pedal (L), no edema noted Pedal (R), no edema noted Generalized Lyndon Shaw MD Apr 20, 2019 12:40
--- NOTE | 2019-04-20 13:25 | Cardiac Electrophysiology PN ---
Assessment/Plan Assessment/Plan 1. Severe nonischemic dilated cardiomyopathy. His EKG also is not suggest any prior myocardial infarction. The patient has already been on medical therapy for more than 3 months. S/P prophylactic VVI [employer] defibrillator implantation 04/19/19. Interrogated and showed Nl Fx CXR No Ptx Continue Lasix 40 mg po daily, hydralazine 25 mg b.i.d., and Isordil 20 mg b.i.d. Avoid KEILY inhibitor in view of the patient's renal failure. 2. Hypertension. Continue Lasix, hydralazine, Isordil and Coreg 3. Renal failure. Creatinine of 2.4. 4. Troponin leak due to heart failure as well as renal failure. 5. Hyponatremia. Keep the patient on diuretic at this time. OK to DC Subjective Subjective CHF with EF <35% more than 6 months. No CP. SOB better S/P [employer] ICD implant yesterday. Interrogated and showed Nl Fx Objective Last 24 Hour Vital Signs Date Time Temp Pulse Resp B/P (MAP) Pulse Ox O2 Delivery O2 Flow Rate FiO2 04/20/19 12:00 99.5 93 20 158/104 (122) 95 04/20/19 09:48 156/104 04/20/19 09:46 156/104 04/20/19 09:46 96 156/104 04/20/19 09:00 Nasal Cannula 2.0 04/20/19 08:00 99.5 96 20 156/104 (121) 95 04/20/19 08:00 101 04/20/19 06:25 20 158/103 (121) 04/20/19 06:03 99.1 04/20/19 05:00 99.1 94 24 157/105 (122) 93 04/20/19 04:00 90 04/20/19 00:00 93 04/20/19 00:00 97.7 93 16 152/98 (116) 98 04/19/19 21:00 Nasal Cannula 2.0 04/19/19 21:00 93 04/19/19 20:22 92 152/98 04/19/19 20:17 92 152/98 (116) 04/19/19 20:00 97.9 18 97 04/19/19 17:16 140/96 04/19/19 17:15 140/96 04/19/19 16:00 97.8 63 19 140/96 (111) 100 04/19/19 15:59 90 Intake and Output 04/19/19 04/20/19 19:00 07:00 Intake Total 125 ml 250 ml Output Total 10 ml 2150 ml Balance 115 ml -1900 ml Intake Oral 140 ml IV Total 125 ml 110 ml Output Urine Total 2150 ml Estimated Blood Loss 10 ml # Voids 7 # Bowel Movements 1 1 Objective HEAD AND NECK: Positive JVD. LUNGS: Decreased breath sounds. CARDIOVASCULAR: Regular S1 and S2 with no gallop or murmur. ICD leftsubclavian no hematoma ABDOMEN: Soft. EXTREMITIES: 1+ pitting edema. Shreyas Palacio MD Apr 20, 2019 13:25
[2019-04-20 13:58] LABS: ANION GAP 13 mmol/L (5-15); BLOOD UREA NITROGEN 32 mg/dL (7-18); CALCIUM 7.9 MG/DL (8.5-10.1); CARBON DIOXIDE 19 MMOL/L (21-32); CHLORIDE 104 MMOL/L (98-107); CREATININE 3.1 MG/DL (0.55-1.30); POTASSIUM 3.8 MMOL/L (3.5-5.1); SODIUM 136 MMOL/L (136-145)
--- NOTE | 2019-04-20 14:12 | General Progress Note ---
Assessment/Plan Problem List: (1) UTI (urinary tract infection) ICD Codes: N39.0 - Urinary tract infection, site not specified SNOMED: 28398007 (2) Respiratory distress ICD Codes: R06.03 - Acute respiratory distress SNOMED: 499569900 (3) Anemia ICD Codes: D64.9 - Anemia, unspecified SNOMED: 490570343 (4) Renal insufficiency ICD Codes: N28.9 - Disorder of kidney and ureter, unspecified SNOMED: 315377158, 720197620 (5) Malnutrition ICD Codes: E46 - Unspecified protein-calorie malnutrition SNOMED: 68066396 (6) Pulmonary edema ICD Codes: J81.1 - Chronic pulmonary edema SNOMED: 53513708 Qualifiers: Qualified Codes: J81.0 - Acute pulmonary edema (7) Hypertensive heart disease ICD Codes: I11.9 - Hypertensive heart disease without heart failure SNOMED: 78407990 (8) Congestive heart failure (CHF) ICD Codes: I50.9 - Heart failure, unspecified SNOMED: 52468904 Qualifiers: Qualified Codes: I50.9 - Heart failure, unspecified (9) Diabetes mellitus ICD Codes: E11.9 - Type 2 diabetes mellitus without complications SNOMED: 62919637 (10) Diabetic nephropathy ICD Codes: E11.21 - Type 2 diabetes mellitus with diabetic nephropathy SNOMED: 746074912 Status: stable, progressing Assessment/Plan: resp insuff chf anemia dm htn icd per cardiology afebrile arf cr is stable no cp Subjective ROS Limited/Unobtainable: Yes Allergies: Coded Allergies: LITHIUM (Verified Allergy, Unknown, 07/23/13) Objective Last 24 Hour Vital Signs Date Time Temp Pulse Resp B/P (MAP) Pulse Ox O2 Delivery O2 Flow Rate FiO2 04/20/19 12:00 99.5 93 20 158/104 (122) 95 04/20/19 09:48 156/104 04/20/19 09:46 156/104 04/20/19 09:46 96 156/104 04/20/19 09:00 Nasal Cannula 2.0 04/20/19 08:00 99.5 96 20 156/104 (121) 95 04/20/19 08:00 101 04/20/19 06:25 20 158/103 (121) 04/20/19 06:03 99.1 04/20/19 05:00 99.1 94 24 157/105 (122) 93 04/20/19 04:00 90 04/20/19 00:00 93 04/20/19 00:00 97.7 93 16 152/98 (116) 98 04/19/19 21:00 Nasal Cannula 2.0 04/19/19 21:00 93 04/19/19 20:22 92 152/98 04/19/19 20:17 92 152/98 (116) 04/19/19 20:00 97.9 18 97 04/19/19 17:16 140/96 04/19/19 17:15 140/96 04/19/19 16:00 97.8 63 19 140/96 (111) 100 04/19/19 15:59 90 Intake and Output 04/19/19 04/20/19 19:00 07:00 Intake Total 125 ml 250 ml Output Total 10 ml 2150 ml Balance 115 ml -1900 ml Intake Oral 140 ml IV Total 125 ml 110 ml Output Urine Total 2150 ml Estimated Blood Loss 10 ml # Voids 7 # Bowel Movements 1 1 Laboratory Tests 04/20/19 13:20: Sodium Level 136, Potassium Level 3.8, Chloride Level 104, Carbon Dioxide Level 19L, Anion Gap 13, Blood Urea Nitrogen 32H, Creatinine 3.1H, Estimat Glomerular Filtration Rate 25.8, Glucose Level 165H, Calcium Level 7.9L Height (Feet): 5 Height (Inches): 9.00 Weight (Pounds): 170 Melida Recinos MD Apr 20, 2019 14:11
[2019-04-20] MEDS ORDERED: Furosemide 40mg tab ORAL SCH (15:00)
--- NOTE | 2019-04-20 15:00 | NUR ---
NURSE NOTES: discharge clearance obtained from Dr. Palacio, Dr. Anderson, and Dr. Herman. Made Dr. Recinos aware(transport operations inspector for Dr. Hay)
[2019-04-20 16:00] VITALS: BP 151/100
--- NOTE | 2019-04-20 18:24 | Pulmonology Progress Note ---
Assessment/Plan Assessment/Plan IMPRESSION: 1. Pulmonary edema. 2. CHF. 3. Hypertension. 4. Diabetes mellitus. DISCUSSION: Continue medications. The patient needs increased diuresis. Blood pressure control. I will follow carefully. AICD per cardiology OK to dc Tyrese Herman M.D. Subjective Interval Events: None new Constitutional: Reports: no symptoms HEENT: Repors: no symptoms Respiratory: Reports: no symptoms Cardiovascular: Reports: no symptoms Gastrointestinal/Abdominal: Reports: no symptoms Genitourinary: Reports: no symptoms Allergies: Coded Allergies: LITHIUM (Verified Allergy, Unknown, 07/23/13) Objective Last 24 Hour Vital Signs Date Time Temp Pulse Resp B/P (MAP) Pulse Ox O2 Delivery O2 Flow Rate FiO2 04/20/19 18:10 151/100 04/20/19 18:09 151/100 04/20/19 16:00 99.1 98 20 151/100 (117) 94 04/20/19 16:00 94 04/20/19 12:00 93 04/20/19 12:00 99.5 93 20 158/104 (122) 95 04/20/19 09:48 156/104 04/20/19 09:46 156/104 04/20/19 09:46 96 156/104 04/20/19 09:00 Nasal Cannula 2.0 04/20/19 08:00 99.5 96 20 156/104 (121) 95 04/20/19 08:00 101 04/20/19 06:25 20 158/103 (121) 04/20/19 06:03 99.1 04/20/19 05:00 99.1 94 24 157/105 (122) 93 04/20/19 04:00 90 04/20/19 00:00 93 04/20/19 00:00 97.7 93 16 152/98 (116) 98 04/19/19 21:00 Nasal Cannula 2.0 04/19/19 21:00 93 04/19/19 20:22 92 152/98 04/19/19 20:17 92 152/98 (116) 04/19/19 20:00 97.9 18 97 Intake and Output 3/6/20 3/7/20 19:00 07:00 Intake Total 125 ml 250 ml Output Total 10 ml 2150 ml Balance 115 ml -1900 ml Intake Oral 140 ml IV Total 125 ml 110 ml Output Urine Total 2150 ml Estimated Blood Loss 10 ml # Voids 7 # Bowel Movements 1 1 General Appearance: no acute distress HEENT: normocephalic Respiratory/Chest: chest wall non-tender Cardiovascular: normal peripheral pulses Abdomen: normal bowel sounds Laboratory Tests 04/20/19 13:20: Sodium Level 136, Potassium Level 3.8, Chloride Level 104, Carbon Dioxide Level 19L, Anion Gap 13, Blood Urea Nitrogen 32H, Creatinine 3.1H, Estimat Glomerular Filtration Rate 25.8, Glucose Level 165H, Calcium Level 7.9L Current Medications Medications (Trade) Dose Ordered Sig/Manuelito Route PRN Reason Start Time Stop Time Status Last Admin Dose Admin Acetaminophen (Tylenol) 650 mg Q6H PRN ORAL FHMP 04/19/19 08:00 05/19/19 07:59 04/19/19 13:24 Acetaminophen/ Codeine Phosphate (Tylenol #3) 1 tab Q4H PRN ORAL Moderate Pain (Pain Scale 4-6) 04/19/19 13:00 04/26/19 12:59 04/19/19 20:22 Carvedilol (Coreg) 3.125 mg EVERY 12 HOURS ORAL 04/17/19 21:00 05/17/19 20:59 04/20/19 09:46 Cefazolin Sodium 500 mg/Dextrose 55 ml @ 110 mls/hr Q8H IV 04/19/19 19:30 04/26/19 19:29 04/20/19 12:45 Clonidine HCl (Catapres Tab) 0.1 mg Q2H PRN ORAL For High Blood Pressure 04/17/19 14:00 05/17/19 13:59 Furosemide (Lasix) 40 mg DAILY ORAL 04/20/19 15:00 05/21/19 08:59 04/20/19 15:05 Heparin Sodium (Porcine) (Heparin 5000 units/ml) 5,000 units EVERY 12 HOURS SUBQ 04/17/19 21:00 05/17/19 20:59 04/20/19 09:49 Hydralazine HCl (Apresoline) 25 mg BID ORAL 04/17/19 18:00 4/3/20 06:59 04/20/19 18:10 Isosorbide Dinitrate (Isordil) 20 mg BID ORAL 04/17/19 18:00 05/17/19 17:59 04/20/19 18:09 Morphine Sulfate (Morphine Sulfate) 2 mg Q1H PRN IVP Severe Pain (Pain Scale 7-10) 04/19/19 13:00 04/26/19 12:59 04/20/19 09:48 Ondansetron HCl (Zofran) 4 mg Q6H PRN IVP Nausea & Vomiting 04/19/19 13:00 05/19/19 12:59 Tyrese Herman MD Apr 20, 2019 18:24
--- NOTE | 2019-04-20 19:00 | NUR ---
Discharge: Patient is being discharged from medical care. Awake, alert and oriented x4. After care instructions, including referral to community resources were given. Patient verbalized understanding of After care instructions; at this time patient does not request medications, equipment or placement. Patient signed patient consent in the medical record for patient destination upon discharge. All medical devices such as IV and dock operations supervisor and ID band were removed. Pt discharges to home. Taxi is called to pick him up. Patient ambulated out with all personal belongings with steady gait with RN's assist. Explained the patient to stay until Dr. Recinos to come and give him the discharge Rx But the patient states that he is unable to sleep here and want to discharge now and will just skip the meds until he sees his own primary MD next monday. Dr. Hernandez and Dr. Anderson's number given to the patient to make f/u appt next monday. All discharge instruction given to the patient including pacemaker after care etc. Pacemaker ID card given to the patient. Explained the patient about the risks and benefits of discharge without the discharge meds but he still told me to discharge now.
[2019-04-21] MEDS ORDERED: Furosemide 40mg tab ORAL SCH (09:00)
--- NOTE | 2019-04-21 11:50 | Discharge Summary ---
Discharge Summary Discharge Summary _ DATE OF ADMISSION: 04/16/2019 DATE OF DISCHARGE: 04/20/2019 DISCHARGED BY: Dr Recinos REASON FOR ADMISSION: 53 years old male with past medical history of congestive heart failure, hypertension, diabetes mellitus, history of CVA, brought from home by ambulance complaining of shortness of breath and leg swelling for 1 week. Patient apparently ran out of Lasix. Patient was trying to get appointment with his primary care provider , but was unable to do it. He denied chest pain. He denied fever and chills. He denied cough. Upon evaluation blood pressure was 169/115, patient was afebrile with mild tachycardia , and pulse oximetry was stable on room air. Laboratory work-up revealed no leukocytosis , stable hemoglobin , hematocrit and platelet count. Sodium 131. BUN 19, creatinine 2.4. Troponin 0.08 , pro BNP 13900. EKG revealed sinus rhythm , no acute ischemic changes. Chest x-ray demonstrated worsening pulmonary vascular congestion. In emergency department patient received aspirin and Lasix and admitted to telemetry floor for further management CONSULTANTS: seismograph supervisor Dr. Bates pulmonary Dr. Herman motor setter Dr.De Daniel [facility]SE: Patient admitted to monitored floor. Echocardiogram revealed evidence of severe cardiomyopathy with ejection fraction of 30% and global left ventricular hypokinesis. Elevated left atrial pressure grade 3. Moderate mitral regurgitation. Right ventricular systolic pressure of 43 consistent with a moderate pulmonary hypertension. Serial troponin with minimal elevation second -0.082 , third - 0.086. Troponin levels were flat and not indicative of acute coronary syndrome. Troponin leak was due to heart and renal failure , as per seismograph supervisor. Patient with known nonischemic dilated cardiomyopathy. Patient was on guideline directed medical therapy for congestive heart failure for more than 3 months without improvement , ejection fraction 30%. Patient subsequently undergone on 04/18 single-chamber defibrillator implantation with ICD program during initial implant. Patient tolerated procedure well. Chest x-ray post surgery revealed no radiographically evident complication. Pain management was addressed as needed. Guideline directed medical therapy for congestive heart failure continued , including hydralazine , Isordil, beta-jojo and Lasix. Volumes were closely monitored. Pro BNP trended down from initial 23,343 to 17,000. Patient initially was on the IV Lasix , which was changed later to oral route. Electronic Equipment Installer recommended to avoid KEILY inhibitor given renal failure. Blood pressure was managed with beta-jojo, hydralazine, Lasix ,and Isordil. Lipid panel was stable. Supplemental oxygen provided and titrated to keep pulse oximetry above 92%. Nebulizing treatment with bronchodilator was on board as needed. Pulse oximetry remained stable on room air. Renal parameters and electrolytes we re closely monitor electrolytes corrected as needed nephrotoxic's were avoided. Per motor setter, patient had acute kidney injury on chronic kidney disease stage IV. Sfdc Consultant recommended he stay away from KEILY inhibitor and other nephrotoxic as possible. Hyponatremia resolved; prior to discharge sodium 136. Patient clinically stabilized and was ready for discharge home . FINAL DIAGNOSES: Severe nonischemic cardiomyopathy Status post single-chamber defibrillator implantation Troponin leak due to heart failure and renal failure Congestive heart failure, systolic and diastolic Pulmonary edema Acute kidney injury on chronic kidney disease stage IV Hypertensive heart disease Diabetes mellitus Hyponatremia resolved DISCHARGE MEDICATIONS: See Medication Reconciliation list. DISCHARGE INSTRUCTIONS: Patient was discharged home. Follow-up with a primary care provider in 1 week. I have been assigned to dictate discharge summary for this account. I was not involved in the patient's management. Lucia Roldan NP Apr 21, 2019 11:50
--- NOTE | 2019-04-22 13:13 | NUR ---
*-* INSURANCE *-* ALL CLINICALS AND REVIEWS HAVE BEEN FAXED TO: [facility] [employer] T:[phone] SPOKE WITH OLIVIA REF# [id number] & [employer] f: [phone]
[2019-04-22 14:54] VITALS: BP 158/104
--- NOTE | 2019-04-22 14:54 | 48 Hour Post Anesthesia Eval ---
Post Anesthesia Evaluation Procedure: AICD insertion Date of Evaluation: Apr 19, 2019 Time of Evaluation: 14:52 Blood Pressure Systolic: 158 0: 104 Pulse Rate: 93 Respiratory Rate: 20 Temperature (Fahrenheit): 99 O2 Sat by Pulse Oximetry: 95 Airway: patent Nausea: No Vomiting: No Pain Intensity: 1 Hydration Status: adequate Cardiopulmonary Status: Stable Mental Status/LOC: patient returned to baseline Follow-up Care/Observations: 0 Post-Anesthesia Complications: 0 Follow-up care needed: ready to discharge Oleg Gil MD Apr 22, 2019 14:54
== END 2019-04-20 19:00 | disposition home or self-care (01) | DRG 161 ==
LOC: EDBD 18:17 → EMR 18:40 → 2E 20:45 → EDBEDREQ 22:15
PROC: 02HK3KZ Insertion of Defibrillator Lead into Right Ventricle, Percutaneous Approach (ICD-10-PCS; 2019-04-19)
PROC: 0JH608Z Insertion of Defibrillator Generator into Chest Subcutaneous Tissue and Fascia, Open Approach (ICD-10-PCS; principal; 2019-04-19 07:30)
DX: I13.0 Hypertensive heart and chronic kidney disease with heart failure and stage 1 through stage 4 chronic kidney disease, or unspecified chronic kidney disease (principal); N18.4 Chronic kidney disease, stage 4 (severe); I50.43 Acute on chronic combined systolic (congestive) and diastolic (congestive) heart failure; E11.22 Type 2 diabetes mellitus with diabetic chronic kidney disease; E46 Unspecified protein-calorie malnutrition; Z68.25 Body mass index [BMI] 25.0-25.9, adult; I42.0 Dilated cardiomyopathy; E87.1 Hypo-osmolality and hyponatremia; N17.9 Acute kidney failure, unspecified; Z88.8 Allergy status to other drugs, medicaments and biological substances; D64.9 Anemia, unspecified; Z86.73 Personal history of transient ischemic attack (TIA), and cerebral infarction without residual deficits; I34.0 Nonrheumatic mitral (valve) insufficiency; R06.03 Acute respiratory distress; I27.20 Pulmonary hypertension, unspecified; N39.0 Urinary tract infection, site not specified
CPT/HCPCS: 36415; 71045; 76000; 80048; 80053; 80061; 82962; 83880; 84484; 85025; 93005; 93306; 94003; 94150; 96374; 96375; 99291; J2250; J2370; J7030; J8499